=== PATIENT | female | born 1960 | race Two or more races ===

== ENCOUNTER → 2016-12-04 | Outpatient (CLI) | payer OTHER | END | disposition home or self-care (01) | LOC: LABWHC1 08:19 | PROVIDERS: ATTEND Psychiatry & Neurology Neurology | DX: G40.209 Localization-related (focal) (partial) symptomatic epilepsy and epileptic syndromes with complex partial seizures, not intractable, without status epilepticus (principal) | CPT/HCPCS: 36415; 80184; 80185; 84450; 84460 ==

== ENCOUNTER → 2017-08-31 | Outpatient (CLI) | payer OTHER ==
--- NOTE | 2017-09-03 08:40 | MM ---
Reason for exam: screening (asymptomatic). Last mammogram was performed 1 year and 3 months ago. History: Patient is postmenopausal. Family history of breast cancer in maternal grandmother. Physical Findings: A clinical breast exam by your physician is recommended on an annual basis and results should be correlated with mammographic findings. MG Screening Mammo w CAD Bilateral CC and MLO view(s) were taken. Prior study comparison: June 05, 2016, bilateral MG screening mammo w CAD. April 13, 2015, bilateral MG screening mammo w CAD. The breast tissue is almost entirely fat. Finding: There are typically benign grouped/clustered calcifications in the right breast. There is a chronic nodularity in the right breast. New finding since June 05, 2016 and April 13, 2015. ASSESSMENT: Probably benign, BI-RAD 3 RECOMMENDATION: Follow-up diagnostic mammogram of the right breast in 6 months.
== END | disposition home or self-care (01) ==
LOC: RADMAMWWP 10:54
PROVIDERS: ATTEND Family Medicine
DX: Z12.31 Encounter for screening mammogram for malignant neoplasm of breast (principal)

== ENCOUNTER 2017-09-07 22:06 | Emergency (ER) | payer OTHER ==
[2017-09-07] MEDS ORDERED: SODIUM CHLORIDE 0.9% 1,000 ML IV STA (22:33)
--- NOTE | 2017-09-07 22:58 | ED ---
General Adult HPI - General Chief complaint: Seizure Stated complaint: Seizure Time Seen by Provider: 09/07/17 22:21 Source: patient, RN notes reviewed, old records reviewed Mode of arrival: wheelchair Limitations: no limitations - History of Present Illness Initial comments: Patient is a 57-year-old female chief complaint of seizure this morning. Patient has a known history of epilepsy. She has been taking her medicine as prescribed. Patient states that she has recently been diagnosed with bronchitis , and has had unexplained hives. She is follow-up with a stick inserter. She states that she heard neurologist is Dr. Johnson. She had an appointment with Dr. Malone to exudative her medication as directed. Patient reports that her seizure lasted approximately 4 or so minutes, and she did bite her tongue. No lacerations to the tongue noted. There is some bruising. Patient states that she also hit her head and feels a hematoma over the left scalp. Patient's concerned she has a concussion. She states that she has no neck pain. Also complains of diarrhea approximately one week ago. Patient denies any fever or chills. - Related Data Home Medications Medication Instructions Recorded Confirmed Famotidine [Pepcid] 40 mg PO DAILY 03/16/14 09/07/17 PHENobarbital [Luminal] 32.4 mg PO QAM 03/16/14 09/07/17 Phenytoin Sodium Extended 200 mg PO BID 03/16/14 09/07/17 [Dilantin] clonazePAM [KlonoPIN] 2 mg PO DAILY 03/16/14 09/07/17 Albuterol Inhaler [Ventolin Hfa 1 - 2 puff INHALATION RT-QID PRN 09/07/17 Inhaler] Albuterol Nebulized [Ventolin 2.5 mg INHALATION RT-QID PRN 09/07/17 09/07/17 Nebulized] Ergocalciferol (Vitamin D2) 50,000 unit PO TELLEZ 09/07/17 09/07/17 [Vitamin D2] Ibuprofen [Motrin] 600 mg PO Q6HR PRN 09/07/17 09/07/17 Loratadine [Claritin] 10 mg PO DAILY 09/07/17 09/07/17 PHENobarbital 64.8 mg PO HS 09/07/17 09/07/17 diphenhydrAMINE [Benadryl] 25 mg PO HS 09/07/17 09/07/17 Allergies Allergy/AdvReac Type Severity Reaction Status Date / Time Penicillins Allergy Rash/Hives Verified 09/07/17 22:55 ranitidine HCl [From Zantac] Allergy interacts Verified 09/07/17 22:55 with dilantin Review of Systems ROS Statement: Those systems with pertinent positive or pertinent negative responses have been documented in the HPI. ROS Other: All systems not noted in ROS Statement are negative. Past Medical History Past Medical History: Seizure Disorder Additional Past Medical History / Comment(s): H. pylori; UTI; Whipple's Disease History of Any Multi-Drug Resistant Organisms: None Reported Past Surgical History: Cholecystectomy Additional Past Surgical History / Comment(s): cataract, lymphnodectomy Past Psychological History: No Psychological Hx Reported Smoking Status: Current every day smoker Past Alcohol Use History: None Reported Past Drug Use History: None Reported - Past Family History Mother Family Medical History: Cancer, Coronary Artery Disease (CAD), Diabetes Mellitus General Exam - General Exam Comments Initial Comments: 57-year-old female. No acute distress. Limitations: no limitations General appearance: alert, in no apparent distress Head exam: Present: atraumatic, normocephalic, normal inspection Eye exam: Present: normal appearance, PERRL, EOMI. Absent: scleral icterus, conjunctival injection, periorbital swelling ENT exam: Present: normal exam, mucous membranes moist, other (ecchymosis on tongue. no tongue laceration. ) Neck exam: Present: normal inspection. Absent: tenderness, meningismus, lymphadenopathy Respiratory exam: Present: normal lung sounds bilaterally. Absent: respiratory distress, wheezes, rales, rhonchi, stridor Cardiovascular Exam: Present: regular rate GI/Abdominal exam: Present: soft Extremities exam: Present: normal inspection, full ROM, normal capillary refill. Absent: tenderness, pedal edema, joint swelling, calf tenderness Back exam: Present: normal inspection Neurological exam: Present: alert, oriented X3, CN II-XII intact Psychiatric exam: Present: normal affect, normal mood Skin exam: Present: warm, dry, intact, normal color. Absent: rash Course Vital Signs 09/07/17 09/07/17 09/08/17 22:12 23:26 00:31 Temperature 99.4 F 97.6 F Pulse Rate 82 77 71 Respiratory 20 18 18 Rate Blood Pressure 128/65 97/60 103/59 O2 Sat by Pulse 97 98 98 Oximetry 09/08/17 01:40 Temperature 98 F Pulse Rate 68 Respiratory 18 Rate Blood Pressure 96/66 O2 Sat by Pulse 99 Oximetry Medical Decision Making - Medical Decision Making 57 year old female with history of epilepsy presents to ED after a seizure, she lost bladder control at the time. Patient is on multple seizure mediaction. PAtient is on dilantin. Levels obtained, and patient is slightly subtherapeutic at 9.5. Patient given loading dose of dilantin. Discussed follow up [facility] neurologist about changing her dosages. CT brain is normal. Labs were reviewed and normal. CXR shows an abnormal right middle lung density that is new compared to CXR in 2015. Discussed that this could be the cause of her cough, not bronchitis, and patient needs to have prompt follow up with PCP for further testing. She complains of no chest pain or shortness of breath. Discussed strict return parameters. Patient agrees to treatment plan and will comply. - Lab Data Result diagrams: 09/07/17 23:00 09/07/17 23:00 Lab Results 09/07/17 09/07/17 09/07/17 Range/Units 23:00 23:00 23:00 WBC 9.4 (3.8-10.6) k/uL RBC 4.53 (3.80-5.40) m/uL Hgb 13.8 (11.4-16.0) gm/dL Hct 42.9 (34.0-46.0) % MCV 94.7 (80.0-100.0) fL MCH 30.5 (25.0-35.0) pg MCHC 32.2 (31.0-37.0) g/dL RDW 14.8 (11.5-15.5) % Plt Count 295 (150-450) k/uL Neutrophils % 61 % Lymphocytes % 29 % Monocytes % 6 % Eosinophils % 3 % Basophils % 1 % Neutrophils # 5.7 (1.3-7.7) k/uL Lymphocytes # 2.7 (1.0-4.8) k/uL Monocytes # 0.5 (0-1.0) k/uL Eosinophils # 0.2 (0-0.7) k/uL Basophils # 0.1 (0-0.2) k/uL Sodium 139 (137-145) mmol/L Potassium 4.1 (3.5-5.1) mmol/L Chloride 105 (98-107) mmol/L Carbon Dioxide 25 (22-30) mmol/L Anion Gap 9 mmol/L BUN 13 (7-17) mg/dL Creatinine 0.60 (0.52-1.04) mg/dL Est GFR (MDRD) Af Amer >60 (>60 ml/min/1.73 sqM) Est GFR (MDRD) Non-Af >60 (>60 ml/min/1.73 sqM) Glucose 98 (74-99) mg/dL Calcium 9.1 (8.4-10.2) mg/dL Total Bilirubin 0.3 (0.2-1.3) mg/dL AST 25 (14-36) U/L ALT 25 (9-52) U/L Alkaline Phosphatase 135 H (38-126) U/L Troponin I <0.012 (0.000-0.034) ng/mL Total Protein 7.9 (6.3-8.2) g/dL Albumin 4.2 (3.5-5.0) g/dL Salicylates <1.0 mg/dL Urine Opiates Screen (NotDetected) Ur Oxycodone Screen (NotDetected) Urine Methadone Screen (NotDetected) Ur Propoxyphene Screen (NotDetected) Acetaminophen <10.0 ug/mL Ur Barbiturates Screen (NotDetected) Phenytoin 9.5 ug/mL U Tricyclic Antidepress (NotDetected) Ur Phencyclidine Scrn (NotDetected) Ur Amphetamines Screen (NotDetected) U Methamphetamines Scrn (NotDetected) U Benzodiazepines Scrn (NotDetected) [place] <0.2 mmol/L Urine Cocaine Screen (NotDetected) U Marijuana (THC) Screen (NotDetected) 09/08/17 Range/Units 00:25 WBC (3.8-10.6) k/uL RBC (3.80-5.40) m/uL Hgb (11.4-16.0) gm/dL Hct (34.0-46.0) % MCV (80.0-100.0) fL MCH (25.0-35.0) pg MCHC (31.0-37.0) g/dL RDW (11.5-15.5) % Plt Count (150-450) k/uL Neutrophils % % Lymphocytes % % Monocytes % % Eosinophils % % Basophils % % Neutrophils # (1.3-7.7) k/uL Lymphocytes # (1.0-4.8) k/uL Monocytes # (0-1.0) k/uL Eosinophils # (0-0.7) k/uL Basophils # (0-0.2) k/uL Sodium (137-145) mmol/L Potassium (3.5-5.1) mmol/L Chloride (98-107) mmol/L Carbon Dioxide (22-30) mmol/L Anion Gap mmol/L BUN (7-17) mg/dL Creatinine (0.52-1.04) mg/dL Est GFR (MDRD) Af Amer (>60 ml/min/1.73 sqM) Est GFR (MDRD) Non-Af (>60 ml/min/1.73 sqM) Glucose (74-99) mg/dL Calcium (8.4-10.2) mg/dL Total Bilirubin (0.2-1.3) mg/dL AST (14-36) U/L ALT (9-52) U/L Alkaline Phosphatase (38-126) U/L Troponin I (0.000-0.034) ng/mL Total Protein (6.3-8.2) g/dL Albumin (3.5-5.0) g/dL Salicylates mg/dL Urine Opiates Screen Not Detected (NotDetected) Ur Oxycodone Screen Not Detected (NotDetected) Urine Methadone Screen Not Detected (NotDetected) Ur Propoxyphene Screen Not Detected (NotDetected) Acetaminophen ug/mL Ur Barbiturates Screen Detected H (NotDetected) Phenytoin ug/mL U Tricyclic Antidepress Not Detected (NotDetected) Ur Phencyclidine Scrn Not Detected (NotDetected) Ur Amphetamines Screen Not Detected (NotDetected) U Methamphetamines Scrn Not Detected (NotDetected) U Benzodiazepines Scrn Not Detected (NotDetected) [place] mmol/L Urine Cocaine Screen Not Detected (NotDetected) U Marijuana (THC) Screen Detected H (NotDetected) - Radiology Data Radiology results: report reviewed EKG shows sinus rhythm. Nonspecific T-wave abnormality. Abnormal EKG noted. Ventricular rate of 70 bpm. CO interval 150 ms. QRS duration 80 ms. QT QTc is 3 days of 490 ms. No evidence of ST elevation. CT brain is negative for abnormalities. CXR shows area of density in right middle lobe, recommended close follow up . Disposition Clinical Impression: Seizure, Subtherapeutic phenytoin level, Mass of middle lobe of right lung Disposition: HOME SELF-CARE Condition: Good Instructions: Recurrent Seizures in Adults (ED) Additional Instructions: Patient is to call Dr. Johnson in regards to the phenytoin dosage. Discussed the ear level phenytoin is 9.5. You are given a loading dose in the emergency department. Patient also recommended to follow up with Dr. Hagen in regards to the chest x-ray finding with the right middle lung mass. Patient needs to follow-up promptly. Recommended returning to emergency department if any alarming signs or symptoms occur. Referrals: Abdirashid Hagen MD [Primary Care Provider] - 1-2 days Time of Disposition: 01:29
[2017-09-07 23:15] LABS: Basophils # (A) 0.1 k/uL (0-0.2); Basophils % (A) 1 %; CH 30.4; CHCM 32.3; Eosinophils # (A) 0.2 k/uL (0-0.7); Eosinophils % (A) 3 %; HCT 42.9 % (34.0-46.0); HDW 2.16; HGB 13.8 gm/dL (11.4-16.0); Luc # (Auto) 0.12; Luc % (Auto) 1; Lymphocytes # (A) 2.7 k/uL (1.0-4.8); Lymphocytes % (A) 29 %; MCH 30.5 pg (25.0-35.0); MCHC 32.2 g/dL (31.0-37.0); MCV 94.7 fL (80.0-100.0); Mean Platelet Volume 6.8; Monocytes # (A) 0.5 k/uL (0-1.0); Monocytes % (A) 6 %; Neutrophils # (A) 5.7 k/uL (1.3-7.7); Neutrophils % (A) 61 %; RBC 4.53 m/uL (3.80-5.40); RDW 14.8 % (11.5-15.5); WBC 9.4 k/uL (3.8-10.6); WBC (Perox) 9.77
--- NOTE | 2017-09-07 23:26 | CT ---
EXAMINATION TYPE: CT brain wo con DATE OF EXAM: 09/07/2017 COMPARISON: NONE HISTORY: Seizure CT DLP: mGycm Automated exposure control for dose reduction was used. FINDINGS: Ventricles and sulci are within normal limits. There is no mass effect nor midline shift. There is no sign of intracranial hemorrhage. The calvarium is intact. IMPRESSION: NEGATIVE CT SCAN OF THE BRAIN.
[2017-09-07 23:28] VITALS: RESP 18
[2017-09-07 23:29] LABS: ALT 25 U/L (9-52); AST 25 U/L (14-36); Acetaminophen <10.0 ug/mL; Alkaline Phosphatase 135 U/L (38-126); Anion Gap 9 mmol/L; Blood Urea Nitrogen 13 mg/dL (7-17); Calcium 9.1 mg/dL (8.4-10.2); Carbon Dioxide 25 mmol/L (22-30); Chloride 105 mmol/L (98-107); Glucose 98 mg/dL (74-99); Lithium <0.2 mmol/L; Non-African American GFR(MDRD) >60 (>60 ml/min/1.73 sqM); Potassium 4.1 mmol/L (3.5-5.1); Salicylate <1.0 mg/dL; Sodium 139 mmol/L (137-145); Total Bilirubin 0.3 mg/dL (0.2-1.3); Total Protein 7.9 g/dL (6.3-8.2)
--- NOTE | 2017-09-07 23:39 | XR ---
EXAMINATION TYPE: XR chest 2V DATE OF EXAM: 09/07/2017 COMPARISON: 05/26/2015 HISTORY: Seizure TECHNIQUE: Frontal and lateral views of the chest are obtained. FINDINGS: Heart is normal. Thoracic aorta is atheromatous. There is no heart failure. There is a 2 c m rounded masslike density in the right midlung. This is in the right middle lobe. There is no pleura l effusion. IMPRESSION: There is a new rounded masslike density in the right middle lobe compared to last exam. Follow-up is recommended.
[2017-09-08] MEDS ORDERED: PHENYTOIN SODIUM EXTENDED 100 MG CAP PO STA (01:17)
[2017-09-08] MEDS ORDERED: PHENYTOIN 50 MG CHEWABLE PO STA (01:27)
[2017-09-08 01:41] VITALS: BP 96/66; PULSE 68; TEMP 98
== END 2017-09-08 01:51 | disposition home or self-care (01) ==
LOC: EC 22:06
DX: R56.9 Unspecified convulsions (principal); R91.8 Other nonspecific abnormal finding of lung field; R89.2 Abnormal level of other drugs, medicaments and biological substances in specimens from other organs, systems and tissues; S00.532A Contusion of oral cavity, initial encounter; F17.200 Nicotine dependence, unspecified, uncomplicated; Z79.899 Other long term (current) drug therapy; Z88.0 Allergy status to penicillin; Z88.8 Allergy status to other drugs, medicaments and biological substances; W22.8XXA Striking against or struck by other objects, initial encounter
CPT/HCPCS: 36415; 70450; 71020; 80053; 80178; 80185; 80306; 83520; 84484; 85025; 93005; 96360; 96361; 99285

== ENCOUNTER → 2017-10-16 | Outpatient (CLI) | payer OTHER | END | disposition home or self-care (01) | LOC: CPPFTMAIN 10:29 | PROVIDERS: ATTEND Thoracic Surgery (Cardiothoracic Vascular Surgery) | DX: Z01.818 Encounter for other preprocedural examination (principal); Z01.812 Encounter for preprocedural laboratory examination; R91.8 Other nonspecific abnormal finding of lung field | CPT/HCPCS: 94060; 94726; 94729 ==

== ENCOUNTER → 2017-10-16 | Outpatient (CLI) | payer OTHER ==
[2017-10-16 12:01] LABS: Basophils # (A) 0.1 k/uL (0-0.2); Basophils % (A) 0 %; Eosinophils # (A) 0.2 k/uL (0-0.7); Eosinophils % (A) 1 %; HCT 43.8 % (34.0-46.0); HGB 13.5 gm/dL (11.4-16.0); Lymphocytes # (A) 2.2 k/uL (1.0-4.8); Lymphocytes % (A) 15 %; MCH 30.1 pg (25.0-35.0); MCHC 30.8 g/dL (31.0-37.0); MCV 97.5 fL (80.0-100.0); Mean Platelet Volume 6.7; Monocytes # (A) 0.5 k/uL (0-1.0); Monocytes % (A) 3 %; Neutrophils # (A) 11.3 k/uL (1.3-7.7); Neutrophils % (A) 79 %; Platelet Count 272 k/uL (150-450); RBC 4.49 m/uL (3.80-5.40); RDW 15.4 % (11.5-15.5); WBC 14.4 k/uL (3.8-10.6)
[2017-10-16 12:10] LABS: Anion Gap 14 mmol/L; Blood Urea Nitrogen 11 mg/dL (7-17); Carbon Dioxide 24 mmol/L (22-30); Chloride 106 mmol/L (98-107); Potassium 4.5 mmol/L (3.5-5.1); Sodium 144 mmol/L (137-145)
[2017-10-16 12:12] LABS: Prothrombin Time 9.7 sec (9.0-12.0)
[2017-10-16 12:13] LABS: Partial Thromboplastin Time 23.2 sec (22.0-30.0)
== END | disposition home or self-care (01) ==
LOC: LABPAT 11:30
PROVIDERS: ATTEND Thoracic Surgery (Cardiothoracic Vascular Surgery)
DX: Z01.812 Encounter for preprocedural laboratory examination (principal); R91.8 Other nonspecific abnormal finding of lung field
CPT/HCPCS: 36415; 80051; 82565; 84520; 85025; 85610; 85730

== ENCOUNTER → 2017-10-23 | Outpatient (CLI) | payer OTHER ==
--- NOTE | 2017-10-23 12:50 | EST ---
EXERCISE STRESS AGE: 57 SEX: F HT: 4'11-10/16" WT: 232 PROTOCOL: Cardiolite Jarrett Stress Test STAGE: I DURATION OF EXERCISE: 4:10 HEART RATE REST: 84 BLOOD PRESSURE REST: 141/84 MAXIMUM HEART RATE ACHIEVED: 143 MAXIMUM BLOOD PRESSURE: 147/66 85% MPHR: 137 100% MPHR: 166 METS: 5.0 INDICATIONS: Preoperative cardiac evaluation. CLINICAL INFORMATION: Baseline EKG shows sinus rhythm, normal axis, normal intervals. Patient exercised on Jarrett protocol for a total of 4 minutes achieving 5 METS, 82% of predicted maximal heart rate without chest pain. The test was stopped secondary to shortness of breath. There was no significant ST-segment depression noted. CONCLUSION: 1. Poor exercise tolerance. 2. Inconclusive EKG part of the stress test due to inability to attain target heart rate. 3. Cardiolite portion of the stress test will be reported separately. MMODL / IJN: [id number] /
--- NOTE | 2017-10-23 13:33 | NM ---
EXAMINATION TYPE: NM stress cardiolite complete DATE OF EXAM: 10/23/2017 COMPARISON: NONE HISTORY: Chest pain TECHNIQUE: After the intravenous administration of 9.0 mCi Tc 99m Sestamibi - Rest images obtained 4 5 minutes post injection. The patient exercised using a PAULETTE protocol and 1 minute prior to peak e xercise was injected with 27.2 mCi Tc 99m Sestamibi - Stress images obtained 15 minutes post injectio n. FINDINGS: Targeted heart rate was achieved during performance of the study. Review of stress and rest SPECT francisca ges demonstrates area of stress-induced reversibility involving the anteroapical portion of the myoca rdium. Gated analysis shows normal wall motion with an estimated left ventricular ejection fraction of 65 %. IMPRESSION: Findings suggestive of a area of stress-induced reversible ischemia anteroapical myocardium. Report c alled to the physician's office and faxed over to the physician. Correlate clinically.
== END | disposition home or self-care (01) ==
LOC: RADNMMAIN 09:26
PROVIDERS: ATTEND Thoracic Surgery (Cardiothoracic Vascular Surgery)
DX: Z01.818 Encounter for other preprocedural examination (principal); C34.11 Malignant neoplasm of upper lobe, right bronchus or lung; Z88.0 Allergy status to penicillin; Z88.5 Allergy status to narcotic agent; Z95.1 Presence of aortocoronary bypass graft
CPT/HCPCS: 93017; 78452; A9500

== ENCOUNTER 2017-11-03 22:11 | Inpatient (IN) | payer OTHER ==
[2017-11-03] MEDS ORDERED: ACETAMINOPHEN TAB 500 MG TAB PO STA (22:28)
[2017-11-03] MEDS ORDERED: IBUPROFEN 600 MG TAB PO STA (22:28)
[2017-11-03] MEDS ORDERED: IPRATROPIUM-ALBUTEROL 3 ML NEB INHALATION STA (22:55)
[2017-11-03] MEDS ORDERED: methylPREDNISolone SOD SUCCI 125 MG/2 ML VIAL IV STA (22:56)
[2017-11-03] MEDS ORDERED: SODIUM CHLORIDE 0.9% 1,000 ML IV STA (22:56)
[2017-11-03] MEDS ORDERED: LEVOFLOXACIN 750MG-D5W PMX 750 MG in DEXTROSE/WATER 1 150ML.BAG IVPB STA (22:57)
[2017-11-03 23:33] LABS: Basophils # (A) 0.1 k/uL (0-0.2); Basophils % (A) 0 %; Eosinophils # (A) 0.1 k/uL (0-0.7); Eosinophils % (A) 0 %; HCT 41.8 % (34.0-46.0); HGB 13.7 gm/dL (11.4-16.0); Lymphocytes # (A) 1.5 k/uL (1.0-4.8); Lymphocytes % (A) 8 %; MCH 30.1 pg (25.0-35.0); MCHC 32.8 g/dL (31.0-37.0); Mean Platelet Volume 6.5; Monocytes # (A) 0.5 k/uL (0-1.0); Monocytes % (A) 3 %; Neutrophils # (A) 15.3 k/uL (1.3-7.7); Neutrophils % (A) 87 %; Platelet Count 232 k/uL (150-450); RBC 4.56 m/uL (3.80-5.40); RDW 14.1 % (11.5-15.5); WBC 17.6 k/uL (3.8-10.6)
[2017-11-03 23:39] LABS: MCV 91.6 fL (80.0-100.0)
[2017-11-03 23:43] LABS: INR 1.1 (<1.2); Partial Thromboplastin Time 24.6 sec (22.0-30.0); Prothrombin Time 10.9 sec (9.0-12.0)
[2017-11-03 23:47] LABS: Albumin 4.3 g/dL (3.5-5.0); Calcium 8.5 mg/dL (8.4-10.2); Magnesium 1.7 mg/dL (1.6-2.3); Potassium 3.4 mmol/L (3.5-5.1); Total Bilirubin 0.6 mg/dL (0.2-1.3); Total Protein 8.3 g/dL (6.3-8.2)
--- NOTE | 2017-11-03 23:54 | XR ---
EXAMINATION TYPE: XR chest 2V DATE OF EXAM: 11/03/2017 COMPARISON: 09/07/2017 HISTORY: Difficulty breathing TECHNIQUE: Frontal and lateral views of the chest are obtained. FINDINGS: There is a 5 cm area of patchy consolidation in the superior segment left lower lobe best seen on the lateral view. Heart size is normal. There is no heart failure. There also is an apparent 2 cm infiltrate in the right middle lobe. The bony thorax is intact. IMPRESSION: Compared to last exam there is new consolidation in the left paraspinal left lower lobe consistent with pneumonia. There is a stable 2 cm rounded infiltrate in the right middle lobe. Tumor cannot be excluded.
[2017-11-04 00:07] LABS: Troponin I <0.012 ng/mL (0.000-0.034)
--- NOTE | 2017-11-04 00:11 | ED ---
Fever HPI - General Chief Complaint: Fever Stated Complaint: Flu like symtoms Time Seen by Provider: 11/03/17 22:41 Source: patient, RN notes reviewed, old records reviewed Mode of arrival: ambulatory Limitations: no limitations - History of Present Illness Initial Comments: Patient is a 57-year-old female history of previous smoker presents emergency room today chief complaint of cough, fevers, chills for the past week. Patient has history of lung cancer. She reports she is post have a biopsy for that the nodule on her right middle lung. Patient states that this was pushed back, due to not being medically cleared. Patient states that over the past week she's had worsening cough and congestion. A productive sputum. She has arrived with fever 101. She does report she's having difficulty breathing easier breathing treatments regularly. - Related Data Home Medications Medication Instructions Recorded Confirmed Famotidine [Pepcid] 40 mg PO DAILY 03/16/14 11/04/17 PHENobarbital [Luminal] 32.4 mg PO QAM 03/16/14 11/04/17 Phenytoin Sodium Extended 200 mg PO BID 03/16/14 11/04/17 [Dilantin] clonazePAM [KlonoPIN] 2 mg PO DAILY 03/16/14 11/04/17 Albuterol Inhaler [Ventolin Hfa 1 - 2 puff INHALATION RT-QID PRN 09/07/17 Inhaler] Albuterol Nebulized [Ventolin 2.5 mg INHALATION RT-QID PRN 09/07/17 11/04/17 Nebulized] Ergocalciferol (Vitamin D2) 50,000 unit PO TELLEZ 09/07/17 11/04/17 [Vitamin D2] Loratadine [Claritin] 10 mg PO DAILY PRN 09/07/17 11/04/17 PHENobarbital 64.8 mg PO HS 09/07/17 11/04/17 diphenhydrAMINE [Benadryl] 25 - 50 mg PO HS PRN 09/07/17 11/04/17 Acetaminophen Tab [Tylenol Tab] 650 mg PO Q6H 10/16/17 11/04/17 Allergies Allergy/AdvReac Type Severity Reaction Status Date / Time Penicillins Allergy Rash/Hives Verified 11/03/17 22:21 ranitidine HCl [From Zantac] Allergy interacts Verified 11/03/17 22:21 with dilantin Review of Systems ROS Statement: Those systems with pertinent positive or pertinent negative responses have been documented in the HPI. ROS Other: All systems not noted in ROS Statement are negative. Past Medical History Past Medical History: Seizure Disorder Additional Past Medical History / Comment(s): H. pylori; UTI; Whipple's Disease History of Any Multi-Drug Resistant Organisms: None Reported Past Surgical History: Cholecystectomy Additional Past Surgical History / Comment(s): cataract, lymphnodectomy Past Psychological History: No Psychological Hx Reported Smoking Status: Current every day smoker Past Alcohol Use History: None Reported Past Drug Use History: None Reported - Past Family History Father Family Medical History: Cancer Mother Family Medical History: Cancer, Coronary Artery Disease (CAD), Diabetes Mellitus General Exam - General Exam Comments Initial Comments: 57-year-old female. Limitations: no limitations General appearance: alert, in no apparent distress Head exam: Present: atraumatic, normocephalic, normal inspection Eye exam: Present: normal appearance, PERRL, EOMI. Absent: scleral icterus, conjunctival injection, periorbital swelling ENT exam: Present: normal exam, mucous membranes moist Neck exam: Present: normal inspection. Absent: tenderness, meningismus, lymphadenopathy Respiratory exam: Present: wheezes (See nursing and wheezing noted), decreased breath sounds. Absent: normal lung sounds bilaterally, respiratory distress, rales, rhonchi, stridor Cardiovascular Exam: Present: regular rate, normal rhythm, normal heart sounds. Absent: systolic murmur, diastolic murmur, rubs, gallop, clicks GI/Abdominal exam: Present: soft, normal bowel sounds. Absent: distended, tenderness, guarding, rebound, rigid Extremities exam: Present: normal inspection, full ROM, normal capillary refill. Absent: tenderness, pedal edema, joint swelling, calf tenderness Back exam: Present: normal inspection Psychiatric exam: Present: normal affect, normal mood Skin exam: Present: warm, dry, intact, normal color. Absent: rash Course Vital Signs 11/03/17 11/03/17 11/03/17 22:20 23:05 23:19 Temperature 101.7 F H 102.2 F H Pulse Rate 111 H 100 84 Respiratory 26 H 20 Rate Blood Pressure 117/79 O2 Sat by Pulse 93 L 93 L Oximetry 11/03/17 11/04/17 23:22 00:37 Temperature 99.5 F Pulse Rate 104 H 92 Respiratory 18 Rate Blood Pressure 94/50 O2 Sat by Pulse 97 Oximetry Medical Decision Making - Medical Decision Making This 7-year-old female presents emergency room chief complaint of increased cough, shortness of breath, and Fevers for the past week. She has history of lung cancer. She is most have a biopsy done on November 15. Patient states that she's been progressively worse. She said he is breathing treatments at home. She arrives with significant wheezing and diminished lung sounds. Oxygen saturation was 87% on initial evaluation. Patient was placed on 3 L of O2. Patient's chest x-ray shows evidence of a left lower lobe pneumonia at the paraspinal area. She also has a right middle lung nodule is been stable compared to previous exams. Patient informed of these results. Her white blood cell count is elevated 17,000. I started the patient on Levaquin. She does meet sepsis criteria. Patient will be admitted at this time with IV antibiotics, breathing treatments and steroids. Similar EKG was performed and noted the patient did have prolonged QT. We discontinue Levaquin patient be started on Rocephin and azithromycin. QTc was 450/447 ms. - Lab Data Result diagrams: 11/03/17 23:05 11/03/17 23:05 Lab Results 11/03/17 11/03/17 11/03/17 Range/Units 22:22 23:05 23:05 WBC 17.6 H (3.8-10.6) k/uL RBC 4.56 (3.80-5.40) m/uL Hgb 13.7 (11.4-16.0) gm/dL Hct 41.8 (34.0-46.0) % MCV 91.6 D (80.0-100.0) fL MCH 30.1 (25.0-35.0) pg MCHC 32.8 (31.0-37.0) g/dL RDW 14.1 (11.5-15.5) % Plt Count 232 (150-450) k/uL Neutrophils % 87 % Lymphocytes % 8 % Monocytes % 3 % Eosinophils % 0 % Basophils % 0 % Neutrophils # 15.3 H (1.3-7.7) k/uL Lymphocytes # 1.5 (1.0-4.8) k/uL Monocytes # 0.5 (0-1.0) k/uL Eosinophils # 0.1 (0-0.7) k/uL Basophils # 0.1 (0-0.2) k/uL PT (9.0-12.0) sec INR (<1.2) APTT (22.0-30.0) sec Sodium (137-145) mmol/L Potassium (3.5-5.1) mmol/L Chloride (98-107) mmol/L Carbon Dioxide (22-30) mmol/L Anion Gap mmol/L BUN (7-17) mg/dL Creatinine (0.52-1.04) mg/dL Est GFR (MDRD) Af Amer (>60 ml/min/1.73 sqM) Est GFR (MDRD) Non-Af (>60 ml/min/1.73 sqM) Glucose (74-99) mg/dL Plasma Lactic Acid Valer[place] (0.7-2.0) mmol/L Calcium (8.4-10.2) mg/dL Magnesium (1.6-2.3) mg/dL Total Bilirubin (0.2-1.3) mg/dL AST (14-36) U/L ALT (9-52) U/L Alkaline Phosphatase (38-126) U/L Total Creatine Kinase 2705 H (30-135) U/L CK-MB (CK-2) 6.2 H* (0.0-2.4) ng/mL CK-MB (CK-2) Rel Index Troponin I <0.012 (0.000-0.034) ng/mL Total Protein (6.3-8.2) g/dL Albumin (3.5-5.0) g/dL Influenza Type A RNA Not Detected (Not Detectd) Influenza Type B (PCR) Not Detected (Not Detectd) 11/03/17 11/03/17 11/03/17 Range/Units 23:05 23:05 23:05 WBC (3.8-10.6) k/uL RBC (3.80-5.40) m/uL Hgb (11.4-16.0) gm/dL Hct (34.0-46.0) % MCV (80.0-100.0) fL MCH (25.0-35.0) pg MCHC (31.0-37.0) g/dL RDW (11.5-15.5) % Plt Count (150-450) k/uL Neutrophils % % Lymphocytes % % Monocytes % % Eosinophils % % Basophils % % Neutrophils # (1.3-7.7) k/uL Lymphocytes # (1.0-4.8) k/uL Monocytes # (0-1.0) k/uL Eosinophils # (0-0.7) k/uL Basophils # (0-0.2) k/uL PT 10.9 (9.0-12.0) sec INR 1.1 (<1.2) APTT 24.6 (22.0-30.0) sec Sodium 141 (137-145) mmol/L Potassium 3.4 L (3.5-5.1) mmol/L Chloride 102 (98-107) mmol/L Carbon Dioxide 23 (22-30) mmol/L Anion Gap 16 mmol/L BUN 21 H (7-17) mg/dL Creatinine 1.20 H (0.52-1.04) mg/dL Est GFR (MDRD) Af Amer 56 (>60 ml/min/1.73 sqM) Est GFR (MDRD) Non-Af 46 (>60 ml/min/1.73 sqM) Glucose 142 H (74-99) mg/dL Plasma Lactic Acid [place] 1.5 (0.7-2.0) mmol/L Calcium 8.5 (8.4-10.2) mg/dL Magnesium 1.7 (1.6-2.3) mg/dL Total Bilirubin 0.6 (0.2-1.3) mg/dL AST 75 H (14-36) U/L ALT 41 (9-52) U/L Alkaline Phosphatase 117 (38-126) U/L Total Creatine Kinase (30-135) U/L CK-MB (CK-2) (0.0-2.4) ng/mL CK-MB (CK-2) Rel Index Troponin I (0.000-0.034) ng/mL Total Protein 8.3 H (6.3-8.2) g/dL Albumin 4.3 (3.5-5.0) g/dL Influenza Type A RNA (Not Detectd) Influenza Type B (PCR) (Not Detectd) 11/04/17 00:49 EKG shows normal sinus rhythm. Nonspecific T-wave abnormality. Prolonged QT. Abnormal EKG noted. Patient's ventricular rate is 89 bpm. KS interval 136 most seconds. QRS duration 70 ms. QT QTc is 450/01/17/1947 milliseconds. - Radiology Data Radiology results: report reviewed Chest x-ray shows no counts station and left paraspinal left lower lobe consistent with pneumonia. There is stable 2 cm round infiltrate within the right middle lobe. Tumor cannot be excluded. Disposition Clinical Impression: Sepsis, Pneumonia, Lung cancer Disposition: ADMITTED IP TO THIS HOSP Condition: Stable Time of Disposition: 00:25
[2017-11-04 00:20] LABS: Creatine Kinase 2705 U/L (30-135); Creatine Kinase MB 6.2 ng/mL (0.0-2.4)
[2017-11-04] MEDS ORDERED: IPRATROPIUM-ALBUTEROL 3 ML NEB INHALATION PRN (00:25)
[2017-11-04] MEDS ORDERED: PNEUMONIA PROTOCOL UTILIZED 1 EACH MISC PO PRN (00:25)
[2017-11-04] MEDS ORDERED: PROMETHAZ-COD 6.25-10 MG/5 ML 5 ML CUP PO PRN (00:27)
[2017-11-04] MEDS ORDERED: SODIUM CHLORIDE 0.9% 1,000 ML IV ONE (00:49)
[2017-11-04] MEDS ORDERED: AZITHROMYCIN 500 MG TAB PO STA (00:55)
[2017-11-04] MEDS ORDERED: cefTRIAXone IN SWFI 1,000 MG/10 ML SYRINGE IVP STA (00:55)
[2017-11-04] MEDS: SODIUM CHLORIDE 0.9% 1,000 ML IV SCH ×3 (00:55→16:34)
[2017-11-04] MEDS: ALBUTEROL NEBULIZED 2.5 MG/3 ML INHALATION SCH ×4 (07:15→20:36)
[2017-11-04] MEDS ORDERED: LORATADINE 10 MG TAB PO PRN (08:23)
[2017-11-04] MEDS ORDERED: ALBUTEROL INHALER 60 PUFF/8 GM INHALER INHALATION PRN (08:23)
[2017-11-04] MEDS ORDERED: ALBUTEROL NEBULIZED 2.5 MG/3 ML INHALATION PRN (08:23)
[2017-11-04] MEDS ORDERED: ERGOCALCIFEROL 50,000 UNIT CAP PO SCH (09:00)
[2017-11-04] MEDS ORDERED: PHENobarbital 32.4 MG TAB PO SCH ×2 (09:00→21:00)
[2017-11-04] MEDS: PHENYTOIN SODIUM EXTENDED 100 MG CAP PO SCH ×2 (09:46→17:20)
[2017-11-04] MEDS: FAMOTIDINE 20 MG TAB PO SCH (09:46)
[2017-11-04] MEDS: POTASSIUM CHLORIDE ER 20 MEQ TAB.ER PO SCH ×3 (09:46→21:46)
[2017-11-04] MEDS: clonazePAM 1 MG TAB PO SCH (09:53)
[2017-11-04] MEDS ORDERED: PHENobarbital 32.4 MG TAB PO ONE (17:45)
[2017-11-04] MEDS: ACETAMINOPHEN TAB 325 MG TAB PO PRN (20:11)
[2017-11-04] MEDS ORDERED: diphenhydrAMINE 25 MG CAP PO PRN (21:00)
[2017-11-05] MEDS: PHENYTOIN SODIUM EXTENDED 100 MG CAP PO SCH ×3 (05:25→17:07)
[2017-11-05] MEDS: PHENobarbital 32.4 MG TAB PO SCH ×2 (05:26→17:06)
[2017-11-05] MEDS: SODIUM CHLORIDE 0.9% 1,000 ML IV SCH ×3 (05:26→16:11)
[2017-11-05] MEDS: ACETAMINOPHEN TAB 325 MG TAB PO PRN ×3 (05:32→23:26)
[2017-11-05] MEDS: clonazePAM 1 MG TAB PO SCH (05:32)
[2017-11-05] MEDS ORDERED: ONDANSETRON 4 MG/2 ML VIAL IVP PRN (07:09)
[2017-11-05] MEDS: FAMOTIDINE 20 MG TAB PO SCH (07:41)
[2017-11-05] MEDS: POTASSIUM CHLORIDE ER 20 MEQ TAB.ER PO SCH ×3 (07:41→23:27)
--- NOTE | 2017-11-05 07:55 | XR ---
EXAMINATION TYPE: XR chest 2V DATE OF EXAM: 11/05/2017 COMPARISON: 11/03/2017 HISTORY: Shortness of breath TECHNIQUE: Frontal and lateral views of the chest are obtained. FINDINGS: Scattered senescent parenchymal changes noted. Hyperinflation compatible with COPD. Right lower lobe nodule with the patchy density. Overall no significant interval change. Follow-up un til resolution recommended. Heart size is stable. Mediastinal structures are stable and grossly unremarkable. No evidence for hilar prominence. Degenerative changes dorsal spine. IMPRESSION: 1. Right lower lobe nodule with the patchy density. Overall no significant interval change. Follow-up until resolution recommended.
[2017-11-05] MEDS: ALBUTEROL NEBULIZED 2.5 MG/3 ML INHALATION SCH ×4 (08:27→21:02)
[2017-11-05] MEDS ORDERED: PHENYTOIN SODIUM EXTENDED 100 MG CAP PO SCH (11:12)
--- NOTE | 2017-11-05 14:48 | HP ---
HISTORY AND PHYSICAL CHIEF COMPLAINT: Fever and chills, chest pain, shortness of breath. HISTORY OF PRESENT ILLNESS: This is another admission for this 57-year-old, white female, who recently was diagnosed with carcinoma of the lung. She has been a long-time smoker. She also has seizure disorder. She started to develop lung congestion, shortness of breath and chest discomfort with fever and came to the emergency room where she was diagnosed as having pneumonitis. She is a current smoker. She has had no hemoptysis. REVIEW OF SYSTEMS: She has had no other signs or symptoms. Patient has had no vomiting, diarrhea, urinary complaints, etc. She has had no seizures. She has had no hemoptysis. She has had some bilateral chest pain. Past medical history, family history, personal and social history demonstrates that she is ALLERGIC TO PENICILLIN AND CODEINE. MEDICATIONS: She is on vitamin D, updrafts with albuterol, Pepcid 40 mg once a day, phenobarbital 32.4 mg t.i.d., Klonopin 2 mg once a day p.r.n., Dilantin 100 mg 2 twice a day. Past medical history, family history, personal and social history otherwise unremarkable. 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 PHYSICAL EXAMINATION: Blood pressure is 102/64 with a pulse of 84, respirations of 35 and temperature of 100. In general, she appeared to be overweight and slightly short of breath. Skin was dry and lymph nodes are not enlarged. Head, ears, eyes, nose, mouth, and throat were normal. Neck veins not distended. Thyroid not enlarged. Chest demonstrates poor breath sounds throughout with occasional rales at the bases. She had a rattly cough and occasional rhonchi. Cardiac exam is normal. The abdomen is soft and protuberant. EXTREMITIES: Normal. Neurological she is intact. She is admitted to the hospital with a diagnosis of: IMPRESSION: 1. Bronchial pneumonia. 2. Right lung mass. 3. Chronic obstructive pulmonary disease. 4. Seizure disorder. PLAN: 1. Bed rest. 2. IV fluids. 3. IV antibiotics. 4. Updrafts. MMODL / IJN: [id number] /
--- NOTE | 2017-11-05 15:48 | PN ---
PROGRESS NOTE DATE OF SERVICE: 11/05/2017. CHIEF COMPLAINT: 1. Pneumonitis. 2. Nausea and vomiting. 3. Carcinoma of the lung. HISTORY OF PRESENT ILLNESS: This lady's breathing is improved slightly, but she is having some nausea and she has vomited twice. She has had no abdominal pain, hematemesis, melena, hematochezia. PHYSICAL EXAM: Breath sounds are diminished at the left base. There are rales and rhonchi scattered throughout. Cardiac exam is normal. The abdomen is soft, nontender. IMPRESSION: 1. Left lower lobe pneumonitis. 2. Nausea vomiting, etiology unknown. 3. Carcinoma of the lung. 4. Seizure disorder. PLAN: Antiemetics and continue treatment of her pneumonia. MMODL / IJN: [id number] /
[2017-11-06] MEDS: PHENYTOIN SODIUM EXTENDED 100 MG CAP PO SCH ×2 (04:12→17:01)
[2017-11-06] MEDS: PHENobarbital 32.4 MG TAB PO SCH ×2 (04:13→17:12)
[2017-11-06] MEDS: clonazePAM 1 MG TAB PO SCH (04:14)
[2017-11-06] MEDS: SODIUM CHLORIDE 0.9% 1,000 ML IV SCH (05:07)
[2017-11-06] MEDS: ALBUTEROL NEBULIZED 2.5 MG/3 ML INHALATION SCH ×4 (08:06→21:04)
[2017-11-06] MEDS: ACETAMINOPHEN TAB 325 MG TAB PO PRN ×2 (08:38→14:43)
[2017-11-06] MEDS: POTASSIUM CHLORIDE ER 20 MEQ TAB.ER PO SCH ×3 (08:41→21:06)
[2017-11-06] MEDS: FAMOTIDINE 20 MG TAB PO SCH (08:41)
[2017-11-06] MEDS ORDERED: guaiFENesin SYRUP 100MG/5ML 200 MG/10 ML CUP PO PRN (08:45)
[2017-11-06] MEDS: LORATADINE 10 MG TAB PO SCH (09:40)
--- NOTE | 2017-11-06 10:41 | CDI ---
Last Revision, September 2017 Documentation Clarification Form Date: 11/06/2017 9:59:00 AM From: Rae Uribe RN, CCDS Admit Date: 11/04/2017 12:51:00 AM Patient Name: Terra Soliman Visit Number: [id number] Discharge Date: ATTENTION: The Clinical Documentation Specialists (CDI) and [facility] Coding Staff appreciate your assistance in clarifying documentation. Please respond to the clarification below the line at the bottom and electronically sign. The CDI & [facility] Coding staff will review the response and follow-up if needed. Please note: Queries are made part of the Legal Health Record. If you have any questions, please contact the author of this message via ITS. Dr. Abdirashid Hagen Emergency department evaluation has documentation of patient with fever, evidence of left lower lobe pneumonia, Her WBC is elevated 17,000, and notes she meet sepsis criteria. History/Risk Factors: Lung cancer nodule right middle lung. Clinical Indicators: Present with complaints of cough, congestion, productive sputum. fevers, chills. She reports difficulty breathing. Respiratory exam: Breath sounds are diminished at the left base. There are rales and rhonchi. WBC/Left Shift : 17,000 Lactic acid: 1.20 Blood cultures: Pending Vitals signs on admission: 117/79 111 26 101.7 93 % RA Chest x-ray: new consolidation in the left paraspinal left lower lobe consistent with pneumonia. Treatment: Ventolin Nebulized Zithromax PO (DC) Rocephin IVP (DC) 11/05/17 Continue pneumonia treatment In your professional opinion, please clarify if these findings signify one of the following conditions, whether the condition is POA, and cause, if known: Condition Sepsis ruled out SIRS, without underlying infectious process Sepsis Severe Sepsis Septic Shock Other, please specify Unable to determine Present on Admission: Yes No Identify the (suspected) organism Link or clarify if there is associated (due to/with): Organ failure Shock SIRS Criteria..2 or more of the following may indicate SIRS: Temperature < 96.8F (36C) or > 101.0F (38.3C) Heart Rate > 90 bpm Respiratory Rate > 20 breaths/min or PaCO2 < 32 mmHg White Blood Cell Count > 12,000 or < 4,000 cells/mm3 or > 10% bands Lactate >2.0 mmol/L (>4.0 is equivalent to septic shock) Please continue to document in your progress notes and discharge summary in order to capture severity of illness and risk of mortality. Include clinical findings that support your diagnosis. MTDD
[2017-11-06] MEDS: cefTRIAXone IN SWFI 2,000 MG/20 ML SYRINGE IVP SCH (12:47)
[2017-11-06] MEDS: AZITHROMYCIN 500 MG in SODIUM CHLORIDE 0.9% 250 ML IVPB SCH (12:57)
--- NOTE | 2017-11-06 22:25 | PN ---
PROGRESS NOTE CHIEF COMPLAINT: Pneumonitis and CA of the lung. HISTORY OF PRESENT ILLNESS: This lady is doing well. She is steadily feeling better each day. PHYSICAL EXAM: Chest is more clear. There are fewer rhonchi. There are scattered rales. Cardiac exam is normal. The abdomen is soft, nontender. IMPRESSION: 1. Bronchial pneumonia. 2. Carcinoma of the lung. 3. Chronic obstructive pulmonary disease. 4. Seizure disorder. PLAN: Continue on current treatment. MMODL / IJN: [id number] /
[2017-11-07] MEDS ORDERED: IPRATROPIUM-ALBUTEROL 3 ML NEB ONE (01:41)
[2017-11-07] MEDS: clonazePAM 1 MG TAB PO SCH (05:23)
[2017-11-07] MEDS: PHENYTOIN SODIUM EXTENDED 100 MG CAP PO SCH (05:23)
[2017-11-07] MEDS: PHENobarbital 32.4 MG TAB PO SCH (05:23)
[2017-11-07] MEDS: ACETAMINOPHEN TAB 325 MG TAB PO PRN (05:29)
[2017-11-07] MEDS: ALBUTEROL NEBULIZED 2.5 MG/3 ML INHALATION SCH ×2 (07:27→11:33)
[2017-11-07 07:52] VITALS: BP 106/74; RESP 18; TEMP 99.9
[2017-11-07] MEDS: POTASSIUM CHLORIDE ER 20 MEQ TAB.ER PO SCH (07:52)
[2017-11-07] MEDS: FAMOTIDINE 20 MG TAB PO SCH (07:52)
[2017-11-07] MEDS: cefTRIAXone IN SWFI 2,000 MG/20 ML SYRINGE IVP SCH (07:52)
[2017-11-07] MEDS: AZITHROMYCIN 500 MG in SODIUM CHLORIDE 0.9% 250 ML IVPB SCH (07:52)
--- NOTE | 2017-11-07 09:20 | MISC ---
MISCELLANOUS REPORT Condition is sepsis. Present on admission: Yes. Identify the organism: Unknown. MMODL / IJN: [id number] /
[2017-11-07 11:35] VITALS: PULSE 88
[2017-11-07] MEDS ORDERED: AZITHROMYCIN 1,200 MG/30 ML BOTTLE PO STA (11:58)
[2017-11-07] MEDS: LORATADINE 10 MG TAB PO SCH (12:05)
[2017-11-07] MEDS ORDERED: CEPHALEXIN 500 MG CAP PO SCH (13:00)
--- NOTE | 2017-11-08 08:03 | DS ---
DISCHARGE SUMMARY CHIEF COMPLAINT: Bronchial pneumonia. HISTORY OF PRESENT ILLNESS AND PHYSICAL EXAM: Details of this lady's history and physical can be found in the initial workup. LABORATORY STUDIES: While she was in a hospital she had laboratory studies, details which can be found in the laboratory section of her chart. COURSE IN HOSPITAL: After admission, she was placed on bedrest and started on intravenous fluids and IV antibiotics with updrafts. She improved slowly and was able to be discharged on the . She will be seen in the office in several days. FINAL DIAGNOSES: 1. Bronchial pneumonia. 2. Chronic obstructive pulmonary disease. 3. Seizure disorder. 4. Cancer of the lung. OPERATIONS: None. CONSULTATIONS: None. She is improved. MMODL / IJN: [id number] /
[2017-11-08] MEDS ORDERED: AZITHROMYCIN 500 MG TAB PO SCH (09:00)
== END 2017-11-07 13:55 | disposition home or self-care (01) | DRG 871 ==
LOC: EC 22:11 → 4MS4W 11-04 00:51
PROVIDERS: ADMIT Family Medicine; ATTEND Family Medicine
DX: A41.9 Sepsis, unspecified organism (principal); J18.0 Bronchopneumonia, unspecified organism; C34.90 Malignant neoplasm of unspecified part of unspecified bronchus or lung; J44.0 Chronic obstructive pulmonary disease with (acute) lower respiratory infection; F17.200 Nicotine dependence, unspecified, uncomplicated; G40.909 Epilepsy, unspecified, not intractable, without status epilepticus; Z82.49 Family history of ischemic heart disease and other diseases of the circulatory system; Z83.3 Family history of diabetes mellitus; Z88.0 Allergy status to penicillin; Z79.899 Other long term (current) drug therapy
CPT/HCPCS: 36415; 71046; 80053; 82550; 82553; 83605; 83735; 84484; 85025; 85610; 85730; 87040; 87070; 87205; 87502; 93005; 94640; 96365; 96375; 99285

== ENCOUNTER → 2017-11-13 | Outpatient (CLI) | payer OTHER ==
[2017-11-13 10:54] LABS: Basophils # (A) 0.1 k/uL (0-0.2); Basophils % (A) 1 %; Eosinophils # (A) 0.3 k/uL (0-0.7); Eosinophils % (A) 4 %; HCT 41.6 % (34.0-46.0); HGB 13.4 gm/dL (11.4-16.0); Lymphocytes # (A) 2.7 k/uL (1.0-4.8); Lymphocytes % (A) 30 %; MCHC 32.3 g/dL (31.0-37.0); Mean Platelet Volume 6.6; Monocytes # (A) 0.5 k/uL (0-1.0); Monocytes % (A) 6 %; Neutrophils % (A) 56 %; Platelet Count 411 k/uL (150-450); RBC 4.47 m/uL (3.80-5.40); RDW 14.5 % (11.5-15.5); WBC 8.9 k/uL (3.8-10.6)
== END | disposition home or self-care (01) ==
LOC: LABPAT 10:25
PROVIDERS: ATTEND Thoracic Surgery (Cardiothoracic Vascular Surgery)
DX: Z01.812 Encounter for preprocedural laboratory examination (principal)
CPT/HCPCS: 36415; 85025

== ENCOUNTER 2017-11-15 05:55 | Inpatient (IN) | payer OTHER ==
[2017-11-12 15:01] VITALS: BMI 46.3
[~2017-11-15 05:55] MED LIST: DEXAMETHASONE SOD PHOSPHATE 10 MG/ML 1 ML VIAL IV ONE; LACTATED RINGERS 1,000 ML IV SCH; LIDOCAINE 1% 20 ML VIAL (10MG/ML) FOR IV START INTRADERMA PRN; MIDAZOLAM 2 MG/2 ML VIAL IV PRN; ONDANSETRON 4 MG/2 ML VIAL IVP ONE; SCOPOLAMINE 1.5MG/72HR PATCH TRANSDERM ONE; ceFAZolin IN SWFI 2 GM/20 ML SYRINGE IVP ONE
[2017-11-15] MEDS ORDERED: LIDOCAINE 1% INJ 10MG/ML (20 ML MDV) ONE (07:55)
[2017-11-15] MEDS ORDERED: ePHEDrine SULFATE/0.9% NACL/PF 50 MG/5 ML SYRINGE IV ONE (07:55)
[2017-11-15] MEDS ORDERED: fentaNYL (PF) 50 MCG/ML 2 ML AMP ONE (07:55)
[2017-11-15] MEDS ORDERED: PHENYLEPHRINE-0.9% NACL SYG 1 MG/10 ML SYRINGE ONE (07:55)
[2017-11-15] MEDS ORDERED: ROCURONIUM BROMIDE 10 MG/ML 10 ML VIAL IV ONE (07:55)
[2017-11-15] MEDS ORDERED: SUCCINYLCHOLINE CHLORIDE 100 MG/5 ML SYR IV ONE (07:55)
[2017-11-15] MEDS ORDERED: PROPOFOL 10 MG/ML 20 ML VIAL IV ONE (07:55)
[2017-11-15] MEDS ORDERED: MIDAZOLAM 2 MG/2 ML VIAL ONE (07:55)
[2017-11-15] MEDS ORDERED: HYDROmorphone (PF) 1 MG/ML ONE (07:55)
[2017-11-15] MEDS ORDERED: LACTATED RINGERS 1,000 ML IV ONE ×3 (08:40→10:47)
[2017-11-15] MEDS ORDERED: ONDANSETRON 4 MG/2 ML VIAL IVP PRN (10:50)
[2017-11-15] MEDS ORDERED: IPRATROPIUM-ALBUTEROL 3 ML NEB IH PRN (10:50)
[2017-11-15] MEDS ORDERED: BISACODYL 10 MG SUPP RECTAL PRN (10:50)
[2017-11-15] MEDS ORDERED: BUPIVACAINE (PF) 0.25% 30 ML VIAL SQ ONE (11:00)
--- NOTE | 2017-11-15 11:19 | P.OP ---
Date of Procedure: 11/15/17 Preoperative Diagnosis: Lung CA Postoperative Diagnosis: Same Procedure(s) Performed: Right middle lobectomy performed via robotic-assisted thoracoscopic approach Anesthesia: CASANDRAA Surgeon: Jemal John Director Of Institutional Research #1: Jose Hooker Estimated Blood Loss (ml): 100 IV fluids (ml): 1,500 Urine output (ml): 500 Pathology: other (Right middle lobe for permanent section. Bronchial margin was negative by frozen section.) Disposition: PACU Indications for Procedure: 57-year-old female with enlarging mass in right middle lobe Operative Findings: 2 cm peripheral mass in the right middle lobe with overlying pleural puckering consistent with lung carcinoma. Near complete greater fissure incomplete lesser fissure. Anthracotic hilar adenopathy. No significant mediastinal adenopathy noted. Description of Procedure: Patient was brought to the operating room placed supine on the operating table. Gen. anesthesia was induced. Patient was intubated with a double-lumen endotracheal tube. This was a difficult intubation. The tube was positioned with fiberoptic bronchoscopy and secured. The patient was turned in the left lateral decubitus position and appropriately positioned for robotic lobectomy. The right chest was sterilely prepped and draped. Initial incision was made in the midaxillary line over the ninth interspace. Single lung ventilation was initiated. A port was placed through this incision but we could not be sure we were in the pleural space. Was decided to widen the port and placed the port under direct vision. The main problem related to 2 difficulty being sure we were in the pleural space in the face of a morbidly obese patient. Incision was enlarged to about 2 inches and carried down through skin and subcutaneous tissue muscle to the intercostal space. Intercostal space was incised and the port was placed into the pleural space. Once we were certain we were in the pleural space CO2 insufflation was begun. Over the next half hour the patient did not tolerate single lung ventilation very well. We had to adjust the ventilatory settings and used to lung ventilation several times. Eventually the patient stabilized. In the interim we placed the remainder of the ports. The initial port was a 8 mm port. Anterior and posterior to this about 10 cm distances were placed 212 mm ports. 15 mm working port was placed between the most anterior and the initial camera port. This was placed more inferiorly right above the diaphragmatic insertion. All these ports were placed using thoracoscopic guidance. A final 8 mm port was placed at the level of the fissure in about the sixth interspace posteriorly. The ports in place and properly positioned, the robot was docked. The camera was placed through the midaxillary line port. Bipolar dissector was placed in the most anterior port. A 12 mm posterior port had a cadiere grasper placed in it and the most posterior port had a thoracic grasper. We began the dissection in the hilum of the middle lobe. We opened the pleura at the base of the greater fissure and identified the pulmonary artery as well as bronchus. There was a large anthracotic lymph node overlying this area and this was mobilized and ultimately resected en bloc with the specimen. We dissected around the middle lobe vein that drained into the superior pulmonary vein and ligated and divided this with a robotic vascular stapler. We then were able to encircle the middle lobe bronchus and ligated and divided with a robotic thick stapler. We now could still demonstrate a large branch of the pulmonary artery leading to the middle lobe. This was encircled and ligated and divided with a robotic vascular stapler. There was a smaller branch just superior to this which was also encircled, ligated and divided with a vascular stapler. We then completed the greater fissure with a single firing of a 45 mm robotic medium stapler and then continued this staple line across the lesser fissure and completed the lobectomy. Multiple firings of medium Endo DAKSHA were required for the lesser fissure. Once the lobectomy specimen was free, it was placed in a large Endo Catch bag. Was retracted inferiorly and dissection was begun on the mediastinal nodes. There was no significant adenopathy noted in the anterior mediastinum. The paratracheal lead region was explored. There was no significant adenopathy noted here either. Was decided to complete the operation. The lobectomy specimen was brought out onto the field. The robot was undocked. Thoracoscopically we placed a 28-Greek chest tube through the most anterior incision and positioned posterior apically and secured it. The lung was inflated under direct vision under water and no air leaks were noted. The water was suctioned free and the ports were closed with layers of Vicryl suture. Dry sterile dressings were applied. Patient was transferred to recovery in stable condition.
--- NOTE | 2017-11-15 11:43 | XR ---
EXAMINATION TYPE: XR chest 1V DATE OF EXAM: 11/15/2017 COMPARISON: 11/15/2017 HISTORY: Right middle lobectomy TECHNIQUE: Single frontal view of the chest is obtained. FINDINGS: There are low lung volumes accentuating the pulmonary vasculature. Obscuration of the left costophrenic angle is thought to be related to copious overlying soft tissues. Low lungs volumes als o accentuate the mediastinal size. Cardiac silhouette is mildly enlarged. New right thoracostomy tube has its distal tip at the medial lung apex. Fenestrated portion is intra thoracic. There is volume loss and a wedge-shaped opacity in the region of the prior right-sided pulm onary nodule from right middle lobectomy, likely related to atelectasis and postbiopsy hemorrhage/hem atoma. No residual pneumothorax is seen. IMPRESSION: Postbiopsy change from a right middle lobectomy with right apical thoracostomy tube and no residual pneumothorax visualized.
[2017-11-15 11:52] LABS: Basophils % (A) 0 %; Eosinophils % (A) 0 %; HCT 36.9 % (34.0-46.0); HGB 11.9 gm/dL (11.4-16.0); Lymphocytes % (A) 9 %; MCH 30.3 pg (25.0-35.0); MCHC 32.2 g/dL (31.0-37.0); MCV 94.2 fL (80.0-100.0); Mean Platelet Volume 6.5; Monocytes # (A) 0.2 k/uL (0-1.0); Monocytes % (A) 2 %; Neutrophils # (A) 9.1 k/uL (1.3-7.7); Neutrophils % (A) 88 %; Platelet Count 336 k/uL (150-450); RBC 3.92 m/uL (3.80-5.40); RDW 15.5 % (11.5-15.5); WBC 10.4 k/uL (3.8-10.6)
[2017-11-15 12:02] LABS: ALT 57 U/L (9-52); AST 65 U/L (14-36); Albumin 3.6 g/dL (3.5-5.0); Alkaline Phosphatase 92 U/L (38-126); Anion Gap 10 mmol/L; Blood Urea Nitrogen 13 mg/dL (7-17); Calcium 8.6 mg/dL (8.4-10.2); Carbon Dioxide 25 mmol/L (22-30); Chloride 106 mmol/L (98-107); Glucose 173 mg/dL (74-99); Potassium 4.4 mmol/L (3.5-5.1); Sodium 141 mmol/L (137-145); Total Bilirubin 0.2 mg/dL (0.2-1.3); Total Protein 7.2 g/dL (6.3-8.2)
[2017-11-15] MEDS: HYDROmorphone 0.5 MG/0.5 ML SYRINGE IVP PRN ×6 (12:07→14:30)
[2017-11-15] MEDS: traMADol 50 MG TAB PO SCH ×3 (15:11→22:42)
[2017-11-15] MEDS: DEXTROSE 5%-0.45% NACL 1,000 ML IV SCH (15:12)
[2017-11-15] MEDS: ACETAMINOPHEN IV (For NPO) 1,000 MG in EMPTY BAG 1 BAG IVPB SCH ×2 (16:01→22:12)
[2017-11-15] MEDS: ceFAZolin IN SWFI 2 GM/20 ML SYRINGE IVP SCH (16:01)
[2017-11-15] MEDS: KETOROLAC 30 MG/ML 1 ML VIAL IVP SCH (16:11)
[2017-11-15] MEDS: HEPARIN SODIUM,PORCINE 5,000 UNIT/ML 1 ML VIAL SQ SCH (16:12)
[2017-11-15] MEDS: MORPHINE SULFATE 2 MG/ML SYRINGE IVP PRN ×2 (16:32→20:35)
[2017-11-15] MEDS: IPRATROPIUM-ALBUTEROL 3 ML NEB IH SCH ×3 (16:34→20:08)
--- NOTE | 2017-11-15 16:46 | P.CNPUL ---
History of Present Illness Consult date: 11/15/17 Requesting physician: Jemal John Chief complaint: Status post right middle lobectomy History of present illness: This is a 57-year-old female, smoker, patient was recently evaluated by Dr. Aden for a peripheral right mid lung mass, measuring about 2.5 x 3 cm. She was also noted to have abnormal PET scan, no other areas of metabolic uptake was noted on the PET scan. Hence the index of suspicion for bronchogenic carcinoma/adenocarcinoma was very high. Patient was advised to undergo right middle lobectomy. This was done today by Dr. John, and this was done via robotic-assisted thoracoscopic approach. Postoperatively, patient was admitted to a monitor bed on selective, and I was asked to see her on consultation. The patient just came out of surgery, she is a bit sedated and confused, but in no form of respiratory distress. PFT prior to surgery was relatively normal. Patient is known to have history of seizure disorder, glaucoma, and GERD. At present the patient is not a great historian. Review of Systems Review of systems cannot be obtained, patient seems to be lethargic and confused. No family members at bedside. ROS unobtainable: due to mental status Past Medical History Past Medical History: Seizure Disorder Additional Past Medical History / Comment(s): H. pylori; UTI; Whipple's Disease History of Any Multi-Drug Resistant Organisms: None Reported Past Surgical History: Cholecystectomy Additional Past Surgical History / Comment(s): cataract, lymphnodectomy Past Psychological History: No Psychological Hx Reported Smoking Status: Current every day smoker Past Alcohol Use History: None Reported Additional Past Alcohol Use History / Comment(s): QUIT SMOKING 10/03/17, SMOKED 1 AND 1/2 PPD FROM AGE 10 Past Drug Use History: None Reported - Past Family History Father Family Medical History: Cancer Additional Family Medical History / Comment(s): LUNG Mother Family Medical History: Cancer, Coronary Artery Disease (CAD), Diabetes Mellitus Additional Family Medical History / Comment(s): LUNG CA Medications and Allergies Home Medications Medication Instructions Recorded Confirmed Type Famotidine [Pepcid] 40 mg PO DAILY PRN 03/16/14 11/15/17 History PHENobarbital [Luminal] 32.4 mg PO QAM 03/16/14 11/15/17 History Phenytoin Sodium Extended 200 mg PO BID 03/16/14 11/15/17 History [Dilantin] clonazePAM [KlonoPIN] 2 mg PO QAM 03/16/14 11/15/17 History Albuterol Inhaler [Ventolin Hfa 1 - 2 puff INHALATION RT-QID PRN 09/07/17 History Inhaler] Loratadine [Claritin] 10 mg PO DAILY PRN 09/07/17 11/15/17 History PHENobarbital 64.8 mg PO HS 09/07/17 11/15/17 History diphenhydrAMINE [Benadryl] 25 - 50 mg PO HS PRN 09/07/17 11/15/17 History Acetaminophen Tab [Tylenol] 650 mg PO Q6H 10/16/17 11/15/17 History Cholecalciferol [Vitamin D3] 2,000 unit PO DAILY 11/04/17 11/15/17 History Albuterol Nebulized [Ventolin 2.5 mg INHALATION RT-QID nebu 11/07/17 11/15/17 Rx Nebulized] Cephalexin [Keflex] 500 mg PO QID #30 cap 11/07/17 11/15/17 Rx Ipratropium-Albuterol Nebulize 3 ml INHALATION RT-Q4H PRN 11/07/17 11/15/17 Rx [Duoneb 0.5 mg-3 mg/3 ml Soln] ampul.neb Metoprolol Tartrate [Metoprolol 12.5 mg PO BID 11/15/17 11/15/17 History Tartrate] Allergies Allergy/AdvReac Type Severity Reaction Status Date / Time Penicillins Allergy Rash/Hives Verified 11/15/17 12:41 ranitidine HCl [From Zantac] Allergy interacts Verified 11/15/17 12:41 with dilantin codeine AdvReac Abdominal Verified 11/15/17 12:41 Pain Physical Exam Vitals: Vital Signs Temp Pulse Resp BP Pulse Ox 11/15/17 15:39 97.6 F 84 20 108/67 92 L 11/15/17 14:22 85 16 109/74 100 11/15/17 13:42 88 20 124/57 100 11/15/17 13:29 86 16 101/66 100 11/15/17 13:10 88 16 107/73 91 L 11/15/17 12:55 89 16 110/65 93 L 11/15/17 12:40 87 16 107/63 93 L 11/15/17 12:25 89 16 110/67 92 L 11/15/17 11:54 93 18 117/55 97 11/15/17 11:39 90 24 113/73 94 L 11/15/17 11:24 97.0 F L 100 16 116/59 90 L 11/15/17 07:12 98 F 96 18 115/75 96 Intake and Output 11/15/17 11/15/17 11/15/17 06:59 14:59 22:59 Intake Total 2950 Output Total 444 Balance 2506 Intake: IV 2950 Output: Urine 300 Estimated Blood Loss 144 Physical examination revealed a 57-year-old female in no form of respiratory distress. HEENT: Neck is supple, no neck masses, no thyromegaly, dry mucous membranes noted. Patient is on nasal cannula. Chest: Minimal crackles at the bases, no rhonchi, no wheezes. Right-sided chest tube was noted. Cardiac: Normal S1 and S2, no gallops. Abdomen: Soft nontender no megaly no rebound no guarding. Extremities: No clubbing edema or cyanosis. Lymphatics: No lymphadenopathy Psychiatric: Slightly confused, blunted affect, Neurologic: Oriented to place, person, and not time. Results - Laboratory Findings CBC and BMP: 11/15/17 11:35 11/15/17 11:35 Abnormal lab findings: Abnormal Labs 11/15/17 11/15/17 11/15/17 06:40 11:35 11:35 Neutrophils # 9.1 H Potassium 5.2 H Glucose 173 H AST 65 H ALT 57 H - Diagnostic Findings Chest x-ray: image reviewed (Postoperative changes noted with a right-sided assess tube in place, atelectasis in the right midlung area and atelectasis in the left base noted.) Assessment and Plan Assessment: Impression: 1 status post right middle lobectomy performed via robotic-assisted thoracoscopic approach. Postoperative day #0. 2 history of seizure disorder 3 history of mild COPD 4 history of hypertension 5 history of GERD Recommendation: I fully agree with the present treatment plan including antibiotics, bronchodilators, incentive spirometry, await final pathology report on her right lung mass, highly suspicious for bronchogenic carcinoma/ adenocarcinoma. We'll continue to follow. Time with Patient: Greater than 30
[2017-11-15] MEDS: PHENYTOIN SODIUM 100 MG PO SCH (20:30)
[2017-11-15] MEDS: PHENobarbital 64.8 MG TAB PO SCH (20:58)
[2017-11-15] MEDS ORDERED: METOPROLOL TARTRATE 12.5 MG TAB PO SCH (21:00)
[2017-11-15] MEDS ORDERED: PHENYTOIN SODIUM EXTENDED 100 MG CAP PO SCH (21:00)
[2017-11-16] MEDS: ceFAZolin IN SWFI 2 GM/20 ML SYRINGE IVP SCH (02:37)
[2017-11-16] MEDS: KETOROLAC 30 MG/ML 1 ML VIAL IVP SCH ×4 (02:37→23:00)
[2017-11-16] MEDS: MORPHINE SULFATE 2 MG/ML SYRINGE IVP PRN ×5 (02:59→23:00)
[2017-11-16] MEDS: HEPARIN SODIUM,PORCINE 5,000 UNIT/ML 1 ML VIAL SQ SCH ×4 (03:06→22:59)
[2017-11-16] MEDS: ACETAMINOPHEN IV (For NPO) 1,000 MG in EMPTY BAG 1 BAG IVPB SCH ×2 (03:11→10:45)
[2017-11-16] MEDS: IPRATROPIUM-ALBUTEROL 3 ML NEB IH SCH ×4 (08:09→20:55)
--- NOTE | 2017-11-16 08:13 | XR ---
EXAMINATION TYPE: XR chest 1V DATE OF EXAM: 11/16/2017 COMPARISON: 11/15/2017 HISTORY: Chest tube placement, surveillance, postoperative foraminal lobectomy. TECHNIQUE: Single frontal view of the chest is obtained. FINDINGS: Similar appearing wedge-shaped opacity within the right middle lung from volume loss and p ostoperative change of the right middle lobectomy are seen. There is slight retraction of the right-s ided thoracostomy tube with its distal tip remaining in the medial right lung apex. Moderate degree o f subcutaneous emphysema seen along the right lateral chest wall. No residual pneumothorax. Cardiac silhouette is enlarged. There is a probable trace left pleural effusion. No pulmonary vascula r congestion. Eventration is noted of the right hemidiaphragm. IMPRESSION: Similar appearing postoperative changes of the right hemithorax and probable trace left pleural effusion.
--- NOTE | 2017-11-16 08:51 | P.PN ---
Subjective Progress Note Date: 11/16/17 Principal diagnosis: Lung cancer. History of seizure disorder, COPD, hypertension, GERD. Tobacco dependence. POD #1 right middle lobectomy performed via robotic-assisted thoracoscopic approach. Patient's currently sitting up in bed in no acute distress. States her pain is controlled. No new complaints or concerns at this time. Objective - Vital Signs Vital signs: Vital Signs Temp 98.2 F 11/16/17 08:00 Pulse 80 11/16/17 08:23 Resp 18 11/16/17 08:00 BP 114/59 11/16/17 08:00 Pulse Ox 97 11/16/17 08:00 Intake & Output 11/15/17 11/16/17 11/16/17 18:59 06:59 18:59 Intake Total 2950 Output Total 444 1171 Balance 2506 -1171 Weight 110 kg Intake: IV 2950 Output: Drainage 171 Right Chest 171 Urine 300 1000 Estimated Blood Loss 144 Other: Voiding Method Indwelling Catheter Indwelling Catheter - Constitutional General appearance: Present: cooperative, no acute distress, obese - Respiratory Details: Lungs sounds diminished bilaterally. Respirations even, nonlabored. Currently on 2 L nasal cannula with oxygen saturation 98%. Able to achieve 1500 mL on her incentive spirometer. Right pleural chest tube in place to -20 cm wall suction, 155 mL thin serous drainage overnight, 300 mL since surgery, positive intermittent air leak with coughing. - Cardiovascular Details: S1, S2 present. No murmur present. Regular rate and rhythm, sinus rhythm on telemetry. Palpable peripheral pulses bilaterally. No edema present. No calf pain or tenderness noted. SCDs present. - Gastrointestinal Gastrointestinal Comment(s): Abdomen soft, nontender, nondistended. Active bowel sounds 4 quadrants. Tolerating diet. - Genitourinary Genitourinary Comment(s): Greco present draining clear, yellow urine. - Integumentary Integumentary Comment(s): Skin warm, dry, with evidence of good perfusion. Right pleural chest tube site covered with dry intact dressing. - Neurologic Neurologic: Present: CNII-XII intact - Musculoskeletal Musculoskeletal: Present: gait normal, strength equal bilaterally - Psychiatric Psychiatric: Present: A&O x's 3, appropriate affect, intact judgment & insight - Allied health notes Allied health notes reviewed: nursing - Labs CBC & Chem 7: 11/15/17 11:35 11/15/17 11:35 Labs: Abnormal Lab Results - Last 24 Hours (Table) 11/15/17 11/15/17 Range/Units 11:35 11:35 Neutrophils # 9.1 H (1.3-7.7) k/uL Glucose 173 H (74-99) mg/dL AST 65 H (14-36) U/L ALT 57 H (9-52) U/L - Imaging and Cardiology Chest x-ray: report reviewed, image reviewed Assessment and Plan (1) History of seizure Current Visit: No Status: Chronic Code(s): Z87.898 - PERSONAL HISTORY OF OTHER SPECIFIED CONDITIONS SNOMED Code(s): 594067436 (2) COPD (chronic obstructive pulmonary disease) Current Visit: Yes Status: Chronic Code(s): J44.9 - CHRONIC OBSTRUCTIVE PULMONARY DISEASE, UNSPECIFIED SNOMED Code(s): 12760127 (3) Tobacco dependence Current Visit: Yes Status: Chronic Code(s): F17.200 - NICOTINE DEPENDENCE, UNSPECIFIED, UNCOMPLICATED SNOMED Code(s): 23430326 (4) GERD (gastroesophageal reflux disease) Current Visit: Yes Status: Chronic Code(s): K21.9 - GASTRO-ESOPHAGEAL REFLUX DISEASE WITHOUT ESOPHAGITIS SNOMED Code(s): 277963145 (5) Lung cancer Current Visit: Yes Status: Chronic Code(s): C34.90 - MALIGNANT NEOPLASM OF UNSP PART OF UNSP BRONCHUS OR LUNG SNOMED Code(s): 178317221 Plan: 1. Will keep right pleural chest tube to suction another 24 hours and monitor for air leak. 2. Wean O2 as tolerated. 3. Encourage incentive spirometry use 10 times every hour. 4. Encourage smoking cessation. 5. Pain control with current regimen. 6. Increase activity ambulate in room. 7. GI/DVT prophylaxis. 8. Will monitor daily chest x-rays. 9. More recommendations to follow. Time with Patient: Greater than 30
[2017-11-16] MEDS: FAMOTIDINE 20 MG TAB PO SCH (10:19)
[2017-11-16] MEDS: clonazePAM 1 MG TAB PO SCH (10:19)
[2017-11-16] MEDS: PHENYTOIN SODIUM 100 MG PO SCH ×2 (10:22→20:14)
[2017-11-16] MEDS: PHENobarbital 32.4 MG TAB PO SCH (10:27)
[2017-11-16] MEDS: traMADol 50 MG TAB PO SCH ×4 (10:28→20:53)
--- NOTE | 2017-11-16 10:34 | P.PN ---
Subjective Progress Note Date: 11/16/17 Principal diagnosis: Right-sided midlung area mass, status post robotic-assisted thoracoscopic right middle lobectomy, postop day 1 This is a 57-year-old female, smoker, patient was recently evaluated by Dr. Aden for a peripheral right mid lung mass, measuring about 2.5 x 3 cm. She was also noted to have abnormal PET scan, no other areas of metabolic uptake was noted on the PET scan. Hence the index of suspicion for bronchogenic carcinoma/adenocarcinoma was very high. Patient was advised to undergo right middle lobectomy. This was done today by Dr. John, and this was done via robotic-assisted thoracoscopic approach. Postoperatively, patient was admitted to a monitor bed on selective, and I was asked to see her on consultation. The patient just came out of surgery, she is a bit sedated and confused, but in no form of respiratory distress. PFT prior to surgery was relatively normal. Patient is known to have history of seizure disorder, glaucoma, and GERD. At present the patient is not a great historian. On 12/01/2017 patient is seen in follow-up. She is having significant incisional pain from the right midlung thoracotomy and lobectomy. The chest tube is in place, and draining serosanguineous drainage. Has been 171 mL of serosanguineous output in the atrium from the right chest tube over the last 24 hours. Lung sounds show good air entry bilaterally, with a few scattered rales over right lower lobe. She is compliant with her incentive spirometer, she is able to achieve 2000 on the today. No fevers, no chills the night, no acute events. Afebrile, currently on room air with pulse ox of 97%. Her chest tube was placed to waterseal. Chest x-ray from this morning shows postop changes of the right hemothorax and probable trace left pleural effusion. Objective - Vital Signs Vital signs: Vital Signs Temp 98.2 F 11/16/17 08:00 Pulse 80 11/16/17 08:23 Resp 18 11/16/17 08:00 BP 114/59 11/16/17 08:00 Pulse Ox 97 11/16/17 08:00 Intake & Output 11/15/17 11/16/17 11/16/17 18:59 06:59 18:59 Intake Total 2950 10 Output Total 444 1171 Balance 2506 -1171 10 Weight 110 kg Intake: IV 2950 10 Invasive Line 4 10 Output: Drainage 171 Right Chest 171 Urine 300 1000 Estimated Blood Loss 144 Other: Voiding Method Indwelling Catheter Indwelling Catheter Indwelling Catheter - Exam Physical examination revealed a 57-year-old female in no form of respiratory distress. HEENT: Neck is supple, no neck masses, no thyromegaly, dry mucous membranes noted. Patient is on nasal cannula. Chest: Minimal crackles at the bases, no rhonchi, no wheezes. Right-sided chest tube was noted. Cardiac: Normal S1 and S2, no gallops. Abdomen: Soft nontender no megaly no rebound no guarding. Extremities: No clubbing edema or cyanosis. Lymphatics: No lymphadenopathy Psychiatric: Slightly confused, blunted affect, Neurologic: Oriented to place, person, and not time. - Labs CBC & Chem 7: 11/15/17 11:35 11/15/17 11:35 Labs: Abnormal Lab Results - Last 24 Hours (Table) 11/15/17 11/15/17 Range/Units 11:35 11:35 Neutrophils # 9.1 H (1.3-7.7) k/uL Glucose 173 H (74-99) mg/dL AST 65 H (14-36) U/L ALT 57 H (9-52) U/L Assessment and Plan Plan: Assessment: 1 status post right middle lobectomy performed via robotic-assisted thoracoscopic approach. Postoperative day #1. 2 history of seizure disorder 3 history of mild COPD 4 history of hypertension 5 history of GERD Recommendation: We'll continue current plan of treatment, continue bronchodilators, increase ambulation, incentive spirometry, pain control. I performed a history & physical examination of the patient and discussed their management with my nurse practitioner, Emily Barone. I reviewed the nurse practitioner's note and agree with the documented findings and plan of care. Lung sounds are positive right lower lobe crackles. The findings and the impression was discussed with the patient. I attest to the documentation by the nurse practitioner.
[2017-11-16] MEDS: DEXTROSE 5%-0.45% NACL 1,000 ML IV SCH (12:15)
[2017-11-16 12:34] LABS: ALT 60 U/L (9-52); AST 78 U/L (14-36); Albumin 3.7 g/dL (3.5-5.0); Alkaline Phosphatase 97 U/L (38-126); Anion Gap 9 mmol/L; Blood Urea Nitrogen 9 mg/dL (7-17); Calcium 8.7 mg/dL (8.4-10.2); Carbon Dioxide 26 mmol/L (22-30); Chloride 103 mmol/L (98-107); Glucose 104 mg/dL (74-99); Sodium 138 mmol/L (137-145); Total Bilirubin 0.4 mg/dL (0.2-1.3); Total Protein 7.1 g/dL (6.3-8.2)
[2017-11-16] MEDS: PHENobarbital 64.8 MG TAB PO SCH (20:53)
--- NOTE | 2017-11-17 07:09 | XR ---
EXAMINATION TYPE: XR chest 1V DATE OF EXAM: 11/17/2017 HISTORY: Postoperative right middle lobectomy. REFERENCE: Previous study dated 11/16/2017. FINDINGS: The right pleural drain remains in place, unchanged in appearance. The heart is enlarged. T here is atelectasis in the right midlung. Lungs otherwise clear. There is blunting of both CP angles. I could not exclude small effusions. IMPRESSION: 1. POSTOPERATIVE CHANGE. 2. CARDIAC ENLARGEMENT. 3. I CANNOT EXCLUDE SMALL, BILATERAL EFFUSIONS.
[2017-11-17] MEDS: MORPHINE SULFATE 2 MG/ML SYRINGE IVP PRN ×4 (07:27→22:11)
[2017-11-17] MEDS: IPRATROPIUM-ALBUTEROL 3 ML NEB IH SCH ×4 (07:34→19:22)
[2017-11-17] MEDS: clonazePAM 1 MG TAB PO SCH (08:01)
[2017-11-17] MEDS: traMADol 50 MG TAB PO SCH ×4 (08:01→20:00)
[2017-11-17] MEDS: KETOROLAC 30 MG/ML 1 ML VIAL IVP SCH ×3 (08:02→20:00)
[2017-11-17] MEDS: PHENobarbital 32.4 MG TAB PO SCH (08:02)
[2017-11-17] MEDS: HEPARIN SODIUM,PORCINE 5,000 UNIT/ML 1 ML VIAL SQ SCH ×2 (08:04→14:34)
[2017-11-17] MEDS: PHENYTOIN SODIUM 100 MG PO SCH ×2 (08:04→19:57)
[2017-11-17] MEDS: FAMOTIDINE 20 MG TAB PO SCH (08:04)
--- NOTE | 2017-11-17 11:02 | P.PN ---
Subjective Progress Note Date: 11/17/17 Principal diagnosis: Status post right middle lobectomy This is a 57-year-old female, smoker, patient was recently evaluated by Dr. Aden for a peripheral right mid lung mass, measuring about 2.5 x 3 cm. She was also noted to have abnormal PET scan, no other areas of metabolic uptake was noted on the PET scan. Hence the index of suspicion for bronchogenic carcinoma/adenocarcinoma was very high. Patient was advised to undergo right middle lobectomy. This was done today by Dr. John, and this was done via robotic-assisted thoracoscopic approach. Postoperatively, patient was admitted to a monitor bed on selective, and I was asked to see her on consultation. The patient just came out of surgery, she is a bit sedated and confused, but in no form of respiratory distress. PFT prior to surgery was relatively normal. Patient is known to have history of seizure disorder, glaucoma, and GERD. At present the patient is not a great historian. On 11/16/2017 patient is seen in follow-up. She is having significant incisional pain from the right midlung thoracotomy and lobectomy. The chest tube is in place, and draining serosanguineous drainage. Has been 171 mL of serosanguineous output in the atrium from the right chest tube over the last 24 hours. Lung sounds show good air entry bilaterally, with a few scattered rales over right lower lobe. She is compliant with her incentive spirometer, she is able to achieve 2000 on the today. No fevers, no chills the night, no acute events. Afebrile, currently on room air with pulse ox of 97%. Her chest tube was placed to waterseal. Chest x-ray from this morning shows postop changes of the right hemothorax and probable trace left pleural effusion. Patient was reevaluated today on , doing relatively well, excellent with incentive spirometry, chest x-ray is showing mostly atelectasis which is expected postoperatively. However the patient is compliant with her incentive spirometer. Labs were reviewed, patient has some pain but denies any shortness of breath. Pathology from her lobectomy is pending. Objective - Vital Signs Vital signs: Vital Signs Temp 98.7 F 11/17/17 08:00 Pulse 95 11/17/17 08:00 Resp 17 11/17/17 08:00 BP 133/70 11/17/17 08:00 Pulse Ox 93 L 11/17/17 08:00 Intake & Output 11/16/17 11/17/17 11/17/17 18:59 06:59 18:59 Intake Total 1100 Output Total 1700 500 Balance -600 -500 Weight 101 kg Intake: IV 20 Invasive Line 4 20 Oral 1080 Output: Chest Tube Drainage 40 Chest Tube 40 Urine 1660 500 Other: Voiding Method Toilet Toilet # Voids 2 - Exam - Exam Physical examination revealed a 57-year-old female in no form of respiratory distress. HEENT: Neck is supple, no neck masses, no thyromegaly, dry mucous membranes noted. Patient is on nasal cannula. Chest: Minimal crackles at the bases, no rhonchi, no wheezes. Right-sided chest tube was noted. Cardiac: Normal S1 and S2, no gallops. Abdomen: Soft nontender no megaly no rebound no guarding. Extremities: No clubbing edema or cyanosis. Lymphatics: No lymphadenopathy Psychiatric: Slightly confused, blunted affect, Neurologic: Oriented to place, person, and time - Labs CBC & Chem 7: 11/15/17 11:35 11/16/17 12:08 Labs: Abnormal Lab Results - Last 24 Hours (Table) 11/16/17 Range/Units 12:08 Glucose 104 H (74-99) mg/dL AST 78 H (14-36) U/L ALT 60 H (9-52) U/L Assessment and Plan Assessment: Impression: 1 status post right middle lobectomy performed via robotic-assisted thoracoscopic approach. Postoperative day #2 2 history of seizure disorder 3 history of mild COPD 4 history of hypertension 5 history of GERD Recommendation: Continue present incentive spirometry, bronchodilators, ambulation, await pathology report, will follow. Time with Patient: Less than 30
--- NOTE | 2017-11-17 11:45 | P.PN ---
Subjective Progress Note Date: 11/17/17 Principal diagnosis: Lung cancer. History of seizure disorder, COPD, hypertension, GERD. Tobacco dependence. POD #2 right middle lobectomy performed via robotic-assisted thoracoscopic approach. Patient's currently sitting up in bed in no acute distress. States her pain is controlled. No new complaints or concerns at this time. Has been ambulating in the hallway. Chest tube was placed to waterseal yesterday. Objective - Vital Signs Vital signs: Vital Signs Temp 99.1 F 11/17/17 11:33 Pulse 92 11/17/17 11:33 Resp 17 11/17/17 11:33 BP 90/55 11/17/17 11:33 Pulse Ox 99 11/17/17 11:33 Intake & Output 11/16/17 11/17/17 11/17/17 18:59 06:59 18:59 Intake Total 1100 Output Total 1700 500 Balance -600 -500 Weight 101 kg Intake: IV 20 Invasive Line 4 20 Oral 1080 Output: Chest Tube Drainage 40 Chest Tube 40 Urine 1660 500 Other: Voiding Method Toilet Toilet # Voids 2 - Constitutional General appearance: Present: cooperative, no acute distress, obese - Respiratory Details: Lungs sounds diminished bilaterally. Respirations even, nonlabored. Currently on room air with oxygen saturation 94%. Able to achieve 1750 mL on her incentive spirometry. Right pleural chest tube to waterseal, 60 mL thin serous drainage in the last 24 hours, intermittent air leak present. - Cardiovascular Details: S1, S2 present. Regular rate and rhythm, sinus rhythm on telemetry. Palpable peripheral pulses bilaterally. No edema present. No calf pain or tenderness noted. SCDs present. - Gastrointestinal Gastrointestinal Comment(s): Abdomen soft, nontender, nondistended. Active bowel sounds 4 quadrants. Tolerating diet. - Genitourinary Genitourinary Comment(s): Continue to void clear, yellow urine. - Integumentary Integumentary Comment(s): Skin warm, dry with evidence of good perfusion. Right pleural chest tube site covered with dry intact dressing. - Neurologic Neurologic: Present: CNII-XII intact - Musculoskeletal Musculoskeletal: Present: gait normal, strength equal bilaterally - Psychiatric Psychiatric: Present: A&O x's 3, appropriate affect, intact judgment & insight - Allied health notes Allied health notes reviewed: nursing - Labs CBC & Chem 7: 11/15/17 11:35 11/16/17 12:08 Labs: Abnormal Lab Results - Last 24 Hours (Table) 11/16/17 Range/Units 12:08 Glucose 104 H (74-99) mg/dL AST 78 H (14-36) U/L ALT 60 H (9-52) U/L - Imaging and Cardiology Chest x-ray: report reviewed, image reviewed Assessment and Plan (1) History of seizure Current Visit: No Status: Chronic Code(s): Z87.898 - PERSONAL HISTORY OF OTHER SPECIFIED CONDITIONS SNOMED Code(s): 887052336 (2) COPD (chronic obstructive pulmonary disease) Current Visit: Yes Status: Chronic Code(s): J44.9 - CHRONIC OBSTRUCTIVE PULMONARY DISEASE, UNSPECIFIED SNOMED Code(s): 54408979 (3) Tobacco dependence Current Visit: Yes Status: Chronic Code(s): F17.200 - NICOTINE DEPENDENCE, UNSPECIFIED, UNCOMPLICATED SNOMED Code(s): 66639178 (4) GERD (gastroesophageal reflux disease) Current Visit: Yes Status: Chronic Code(s): K21.9 - GASTRO-ESOPHAGEAL REFLUX DISEASE WITHOUT ESOPHAGITIS SNOMED Code(s): 085915557 (5) Lung cancer Current Visit: Yes Status: Chronic Code(s): C34.90 - MALIGNANT NEOPLASM OF UNSP PART OF UNSP BRONCHUS OR LUNG SNOMED Code(s): 630721626 Plan: 1. Will keep right pleural chest tube to waterseal another 24 hours and monitor for air leak. 2. Wean O2 as tolerated. 3. Encourage incentive spirometry use 10 times every hour. 4. Encourage smoking cessation. 5. Pain control with current regimen. 6. Increase activity ambulate in room. 7. GI/DVT prophylaxis. 8. Will monitor daily chest x-rays. 9. More recommendations to follow. Time with Patient: Greater than 30
--- NOTE | 2017-11-17 17:14 | PN ---
PROGRESS NOTE She was seen on 11/17/2017. She continues to have a right-sided chest tube. On physical examination, respiratory rate is 17, pulse rate 96, temperature 99.1, blood pressure 160/64, O2 saturation on room air 93%. HEENT is unremarkable. With decreased breath sounds on the right side. Cardiovascular system reveals an S1, S2. Abdomen is soft. There is no edema. IMPRESSION AT THIS TIME: Status post right middle lobectomy for lung cancer. Continue chest tube on the right. Incentive spirometry. Increase her activity level. Continue treatment for gastroesophageal reflux disease, hypertension, and her seizure disorder. Her prognosis is fair. MMODL / IJN: [id number] /
[2017-11-17] MEDS: PHENobarbital 64.8 MG TAB PO SCH (20:00)
[2017-11-18] MEDS: HEPARIN SODIUM,PORCINE 5,000 UNIT/ML 1 ML VIAL SQ SCH ×4 (00:17→22:49)
[2017-11-18] MEDS: MORPHINE SULFATE 2 MG/ML SYRINGE IVP PRN ×2 (02:35→06:30)
--- NOTE | 2017-11-18 03:27 | XR ---
EXAM: XR Chest, 1 View CLINICAL HISTORY: Reason: chest tube placement TECHNIQUE: Frontal view of the chest. COMPARISON: Chest x-ray dated 11/17/2016. FINDINGS: Lungs: Unchanged mild patchy opacity in the right midlung. Pleural space: Unremarkable. No pneumothorax. Heart: Reidentified mild cardiomegaly. Mediastinum: Unremarkable. Bones/joints: Unremarkable. Soft tissues: A chest tube is reidentified projecting over the right chest wall. There appears to be increased now severe subcutaneous emphysema throughout the right chest wall extending across midline to the left. There also appears to be some mediastinal emphysema as well as questionable minimal residual pleural air along the right lung base. Upper abdomen: Unchanged mild asymmetric elevation of the right hemidiaphragm. IMPRESSION: Somewhat increased severe subcutaneous emphysema. Questionable minimal residual pleural air along the right lung base, not appreciated on the prior exam. Unchanged nonspecific patchy opacity within the right midlung.
[2017-11-18] MEDS: IPRATROPIUM-ALBUTEROL 3 ML NEB IH SCH ×4 (07:08→19:35)
[2017-11-18] MEDS: PHENobarbital 32.4 MG TAB PO SCH (08:25)
[2017-11-18] MEDS: FAMOTIDINE 20 MG TAB PO SCH (08:25)
[2017-11-18] MEDS: PHENYTOIN SODIUM 100 MG PO SCH ×2 (08:25→19:57)
[2017-11-18] MEDS: clonazePAM 1 MG TAB PO SCH (08:25)
[2017-11-18] MEDS: KETOROLAC 30 MG/ML 1 ML VIAL IVP SCH ×3 (08:25→22:49)
--- NOTE | 2017-11-18 10:59 | P.PN ---
Subjective Progress Note Date: 11/18/17 Principal diagnosis: Lung cancer. History of seizure disorder, mild COPD, hypertension, GERD. Morbid obesity. Current tobacco dependence. POD #3 right middle lobectomy performed via robotic-assisted thoracoscopic approach. The patient is currently sitting up in bed. She is in no acute distress. She reports that her pain is controlled but is present to her right shoulder and surrounding her neck. She states that she is ambulating in the hallway 2-3 times yesterday and tolerated it well. Her right pleural chest tube remains in place and to waterseal with no airleak present today. Her oxygen saturations are 97% on 2 L nasal cannula. Objective - Vital Signs Vital signs: Vital Signs Temp 99 F 11/18/17 08:00 Pulse 94 11/18/17 08:00 Resp 17 11/18/17 08:00 BP 119/63 11/18/17 08:00 Pulse Ox 94 L 11/18/17 08:00 Intake & Output 11/17/17 11/18/17 11/18/17 18:59 06:59 18:59 Intake Total 200 Output Total 355 Balance -155 Weight 101 kg Intake: Oral 200 Output: Chest Tube Drainage 55 Chest Tube 55 Urine 300 Other: Voiding Method Toilet # Voids 1 - Constitutional General appearance: Present: cooperative, morbidly obese, no acute distress - EENT ENT: Present: hearing grossly normal - Neck Details: Neck is supple, no lymphadenopathy, no JVD. - Respiratory Details: Lungs sounds essentially clear throughout, diminished to her bilateral bases. Respirations are symmetrical and nonlabored. Oxygen saturation are 97% on 2 L nasal cannula. She is achieving 8207-1944 mL on her incentive spirometry. Right pleural chest tube remains in place to waterseal. No air leak present. Draining thin serosanguineous drainage. 55 L output in the last 8 hours, 150 milliliters output in 24 hours. Subcutaneous emphysema present to her right chest, right arm and surrounding her neck. - Cardiovascular Details: S1 and S2 present, negative for S3, gallop or murmur. Regular rhythm and rate. Remote telemetry showing normal sinus rhythm heart rate 95. Knee-high LENNY hose and sequential compression devices in place to bilateral lower extremities. No edema present. Peripheral pulses palpable. - Gastrointestinal Gastrointestinal Comment(s): Abdomen is soft, nontender nondistended. Active bowel sounds all 4 abdominal quadrants. Passing flatus. Tolerating oral intake. - Genitourinary Genitourinary Comment(s): Urine output adequate. Urine clear and yellow. 300 mL output in the last 8 hours. - Integumentary Integumentary Comment(s): Skin warm, dry and pink. No clubbing or cyanosis. Right pleural chest tube site covered with dry intact dressing. - Neurologic Neurologic: Present: CNII-XII intact - Musculoskeletal Musculoskeletal: Present: gait normal, strength equal bilaterally - Psychiatric Psychiatric: Present: A&O x's 3, appropriate affect, intact judgment & insight - Allied health notes Allied health notes reviewed: nursing - Labs CBC & Chem 7: 11/15/17 11:35 11/16/17 12:08 - Imaging and Cardiology Chest x-ray: report reviewed, image reviewed Assessment and Plan (1) COPD (chronic obstructive pulmonary disease) Current Visit: Yes Status: Chronic Code(s): J44.9 - CHRONIC OBSTRUCTIVE PULMONARY DISEASE, UNSPECIFIED SNOMED Code(s): 35855690 (2) GERD (gastroesophageal reflux disease) Current Visit: Yes Status: Chronic Code(s): K21.9 - GASTRO-ESOPHAGEAL REFLUX DISEASE WITHOUT ESOPHAGITIS SNOMED Code(s): 225435565 (3) Lung cancer Current Visit: Yes Status: Chronic Code(s): C34.90 - MALIGNANT NEOPLASM OF UNSP PART OF UNSP BRONCHUS OR LUNG SNOMED Code(s): 656935462 (4) Tobacco dependence Current Visit: Yes Status: Chronic Code(s): F17.200 - NICOTINE DEPENDENCE, UNSPECIFIED, UNCOMPLICATED SNOMED Code(s): 87281533 (5) History of seizure Current Visit: No Status: Chronic Code(s): Z87.898 - PERSONAL HISTORY OF OTHER SPECIFIED CONDITIONS SNOMED Code(s): 494901449 Plan: 1. We will clamp her right pleural chest tube today and potentially remove her chest tube today. 2. Wean O2 as tolerated. 3. Encourage incentive spirometry use every hour while awake. 4. Encourage smoking cessation. 5. Pain control with current when necessary medications. 6. Increase activity as tolerated. 7. GI/DVT prophylaxis. 8. Will monitor daily chest x-rays. 9. More recommendations to follow. Anticipate discharge home within the next 24 hours. Time with Patient: Greater than 30
[2017-11-18] MEDS: traMADol 50 MG TAB PO SCH ×4 (11:06→22:48)
--- NOTE | 2017-11-18 13:30 | P.PN ---
Subjective Progress Note Date: 11/18/17 Principal diagnosis: Status post right middle lobectomy This is a 57-year-old female, smoker, patient was recently evaluated by Dr. Aden for a peripheral right mid lung mass, measuring about 2.5 x 3 cm. She was also noted to have abnormal PET scan, no other areas of metabolic uptake was noted on the PET scan. Hence the index of suspicion for bronchogenic carcinoma/adenocarcinoma was very high. Patient was advised to undergo right middle lobectomy. This was done today by Dr. John, and this was done via robotic-assisted thoracoscopic approach. Postoperatively, patient was admitted to a monitor bed on selective, and I was asked to see her on consultation. The patient just came out of surgery, she is a bit sedated and confused, but in no form of respiratory distress. PFT prior to surgery was relatively normal. Patient is known to have history of seizure disorder, glaucoma, and GERD. At present the patient is not a great historian. On 11/16/2017 patient is seen in follow-up. She is having significant incisional pain from the right midlung thoracotomy and lobectomy. The chest tube is in place, and draining serosanguineous drainage. Has been 171 mL of serosanguineous output in the atrium from the right chest tube over the last 24 hours. Lung sounds show good air entry bilaterally, with a few scattered rales over right lower lobe. She is compliant with her incentive spirometer, she is able to achieve 2000 on the today. No fevers, no chills the night, no acute events. Afebrile, currently on room air with pulse ox of 97%. Her chest tube was placed to waterseal. Chest x-ray from this morning shows postop changes of the right hemothorax and probable trace left pleural effusion. Patient was reevaluated today on 11/17/2017 doing relatively well, excellent with incentive spirometry, chest x-ray is showing mostly atelectasis which is expected postoperatively. However the patient is compliant with her incentive spirometer. Labs were reviewed, patient has some pain but denies any shortness of breath. Pathology from her lobectomy is pending. Patient was reevaluated today on 11/18/2017,patient is doing well, relatively asymptomatic except for some pain.her chest tube is being clamped, may be removed later on today.chest x-ray showed significant subcutaneous emphysema otherwise unremarkable. Continues to have a right midlung opacity. Objective - Vital Signs Vital signs: Vital Signs Temp 98.7 F 11/18/17 10:51 Pulse 76 11/18/17 11:17 Resp 18 11/18/17 10:51 BP 124/67 11/18/17 10:51 Pulse Ox 93 L 11/18/17 10:51 Intake & Output 11/17/17 11/18/17 11/18/17 18:59 06:59 18:59 Intake Total 200 Output Total 355 Balance -155 Weight 101 kg Intake: Oral 200 Output: Chest Tube Drainage 55 Chest Tube 55 Urine 300 Other: Voiding Method Toilet # Voids 1 - Exam - Exam Physical examination revealed a 57-year-old female in no form of respiratory distress. HEENT: Neck is supple, no neck masses, no thyromegaly, dry mucous membranes noted. Patient is on nasal cannula. Chest: Minimal crackles at the bases, no rhonchi, no wheezes. Right-sided chest tube was noted. Cardiac: Normal S1 and S2, no gallops. Abdomen: Soft nontender no megaly no rebound no guarding. Extremities: No clubbing edema or cyanosis. Lymphatics: No lymphadenopathy Psychiatric: Slightly confused, blunted affect, Neurologic: Oriented to place, person, and time - Labs CBC & Chem 7: 11/15/17 11:35 11/16/17 12:08 Assessment and Plan Assessment: Impression: 1 status post right middle lobectomy performed via robotic-assisted thoracoscopic approach. Postoperative day #2 2 history of seizure disorder 3 history of mild COPD 4 history of hypertension 5 history of GERD Recommendation: Continue present incentive spirometry, bronchodilators, ambulation, await pathology report, will follow. Time with Patient: Less than 30
--- NOTE | 2017-11-18 16:34 | PN ---
PROGRESS NOTE DATE OF SERVICE: November 18, 2017. She has been hemodynamically stable. She has pain in the right side of her chest and continues to have a chest tube. There continues to be movement off air despite it apparently being clamped. The patient also has a low-grade fever. PHYSICAL EXAMINATION: Blood pressure 108/58, respiratory rate of 18, pulse rate 95, temperature 100.1 degrees Fahrenheit, O2 saturation on 2 L by nasal cannula is 98%. HEENT: Unremarkable. Chest reveals chest tube on the right side with decreased breath sounds. Occasional crackle. Cardiovascular system is S1, S2. ABDOMEN: Soft there is no edema. There are no new labs. Chest x-ray shows increased subcutaneous emphysema on the right chest wall extending across the midline with questionable minimal residual pleural air. IMPRESSION: At this time: 1. Status post right middle lobectomy for lung cancer. Pathology itself is pending. 2. Chronic obstructive pulmonary disease. 3. Hypertension. 4. Gastroesophageal reflux disease. Continue incentive spirometry. Increase activity level. We are covering for Dr. Hagen who will be back tomorrow morning. MMODL / IJN: [id number] /
[2017-11-18] MEDS: PHENobarbital 64.8 MG TAB PO SCH (20:10)
[2017-11-18] MEDS: ACETAMINOPHEN TAB 325 MG TAB PO PRN (20:10)
[2017-11-19 06:19] LABS: Basophils % (A) 0 %; Eosinophils # (A) 0.2 k/uL (0-0.7); Eosinophils % (A) 3 %; HCT 35.2 % (34.0-46.0); HGB 11.1 gm/dL (11.4-16.0); Lymphocytes # (A) 1.9 k/uL (1.0-4.8); Lymphocytes % (A) 27 %; MCH 30.1 pg (25.0-35.0); MCHC 31.6 g/dL (31.0-37.0); MCV 95.3 fL (80.0-100.0); Mean Platelet Volume 6.9; Monocytes # (A) 0.3 k/uL (0-1.0); Monocytes % (A) 4 %; Neutrophils # (A) 4.3 k/uL (1.3-7.7); Neutrophils % (A) 63 %; Platelet Count 325 k/uL (150-450); RBC 3.69 m/uL (3.80-5.40); RDW 15.7 % (11.5-15.5); WBC 6.8 k/uL (3.8-10.6)
[2017-11-19 06:38] LABS: Anion Gap 8 mmol/L; Blood Urea Nitrogen 9 mg/dL (7-17); Carbon Dioxide 30 mmol/L (22-30); Chloride 102 mmol/L (98-107); Glucose 97 mg/dL (74-99); Potassium 4.5 mmol/L (3.5-5.1); Sodium 140 mmol/L (137-145)
--- NOTE | 2017-11-19 06:58 | XR ---
EXAMINATION TYPE: XR chest 2V DATE OF EXAM: 11/19/2017 COMPARISON: Chest x-ray from yesterday and older studies HISTORY: Pneumothorax progress study. TECHNIQUE: Frontal and lateral views of the chest are obtained. FINDINGS: There is extensive overlying subcutaneous emphysema worse on the right and posterior aspec ts with supraclavicular extension. There is small right apical pneumothorax despite chest tube placem ent seen better on current study. There is chronic reticular interstitial changes with right infrahil ar opacity. No mediastinal shift is identified. No large pleural effusion is identified. Cardiac silh ouette size is within normal limits. Osseous structures are intact. IMPRESSION: Persistent prominent subcutaneous emphysema. Better visualized small right apical pneumo thorax despite chest tube placement. Chronic parenchymal changes with persistent right infrahilar inf iltrate and/or atelectasis.
[2017-11-19] MEDS: KETOROLAC 30 MG/ML 1 ML VIAL IVP SCH (07:03)
[2017-11-19] MEDS: ACETAMINOPHEN TAB 325 MG TAB PO PRN ×3 (07:03→23:02)
[2017-11-19] MEDS: IPRATROPIUM-ALBUTEROL 3 ML NEB IH SCH ×4 (07:48→19:57)
[2017-11-19] MEDS: PHENYTOIN SODIUM 100 MG PO SCH ×2 (09:03→21:23)
[2017-11-19] MEDS: PHENobarbital 32.4 MG TAB PO SCH (09:03)
[2017-11-19] MEDS: FAMOTIDINE 20 MG TAB PO SCH (09:03)
[2017-11-19] MEDS: HEPARIN SODIUM,PORCINE 5,000 UNIT/ML 1 ML VIAL SQ SCH ×3 (09:03→23:03)
[2017-11-19] MEDS: clonazePAM 1 MG TAB PO SCH (09:03)
[2017-11-19] MEDS: traMADol 50 MG TAB PO SCH ×4 (09:04→21:25)
--- NOTE | 2017-11-19 09:26 | P.PN ---
Subjective Progress Note Date: 11/19/17 Principal diagnosis: Lung cancer. History of seizure disorder, COPD, hypertension, GERD. Tobacco dependence. POD #4 right middle lobectomy performed via robotic-assisted thoracoscopic approach. Patient's currently sitting up in bed in no acute distress. States she does have some pain in her right shoulder area but it is well-controlled. She has been ambulating in the hallway. Her chest tube has been to waterseal for more than 24 hours, intermittent air leak remains. Objective - Vital Signs Vital signs: Vital Signs Temp 97.8 F 11/19/17 09:00 Pulse 80 11/19/17 09:00 Resp 16 11/19/17 09:00 BP 107/69 11/19/17 09:00 Pulse Ox 93 L 11/19/17 07:48 Intake & Output 11/18/17 11/19/17 11/19/17 18:59 06:59 18:59 Output Total 65 500 0 Balance -65 -500 0 Weight 100.2 kg Output: Chest Tube Drainage 65 0 0 Chest Tube 65 0 0 Urine 500 Other: Voiding Method Toilet Toilet # Voids 1 - Constitutional General appearance: Present: cooperative, no acute distress, obese - Respiratory Details: Lungs sounds diminished bilaterally with coarse breath sounds in the right base. Respirations even, nonlabored. Currently on 2 L nasal cannula with oxygen saturation 93%. Able to achieve 1750 mL on her incentive spirometry. Productive cough with yellowish sputum. Right pleural chest tube to waterseal, 80 mL thin serous drainage in the last 24 hours, positive intermittent air leak. Subcu emphysema felt over anterior and posterior chest. - Cardiovascular Details: S1, S2 present. Regular rate and rhythm, sinus rhythm on telemetry. Palpable peripheral pulses bilaterally. No edema present. No calf pain or tenderness noted. SCDs present. - Gastrointestinal Gastrointestinal Comment(s): Abdomen soft, nontender, nondistended. Active bowel sounds 4 quadrants. Tolerating diet. - Genitourinary Genitourinary Comment(s): Continues to void clear, yellow urine. - Integumentary Integumentary Comment(s): Skin is warm and dry with evidence of good perfusion. Incisions to right lateral chest wall are well approximated. - Neurologic Neurologic: Present: CNII-XII intact - Musculoskeletal Musculoskeletal: Present: gait normal, strength equal bilaterally - Psychiatric Psychiatric: Present: A&O x's 3, appropriate affect, intact judgment & insight - Allied health notes Allied health notes reviewed: nursing - Labs CBC & Chem 7: 11/19/17 05:28 11/19/17 05:28 Labs: Abnormal Lab Results - Last 24 Hours (Table) 11/19/17 Range/Units 05:28 RBC 3.69 L (3.80-5.40) m/uL Hgb 11.1 L (11.4-16.0) gm/dL RDW 15.7 H (11.5-15.5) % - Imaging and Cardiology Chest x-ray: report reviewed, image reviewed Assessment and Plan (1) History of seizure Current Visit: No Status: Chronic Code(s): Z87.898 - PERSONAL HISTORY OF OTHER SPECIFIED CONDITIONS SNOMED Code(s): 433684183 (2) COPD (chronic obstructive pulmonary disease) Current Visit: Yes Status: Chronic Code(s): J44.9 - CHRONIC OBSTRUCTIVE PULMONARY DISEASE, UNSPECIFIED SNOMED Code(s): 88294116 (3) Tobacco dependence Current Visit: Yes Status: Chronic Code(s): F17.200 - NICOTINE DEPENDENCE, UNSPECIFIED, UNCOMPLICATED SNOMED Code(s): 77069041 (4) GERD (gastroesophageal reflux disease) Current Visit: Yes Status: Chronic Code(s): K21.9 - GASTRO-ESOPHAGEAL REFLUX DISEASE WITHOUT ESOPHAGITIS SNOMED Code(s): 944888398 (5) Lung cancer Current Visit: Yes Status: Chronic Code(s): C34.90 - MALIGNANT NEOPLASM OF UNSP PART OF UNSP BRONCHUS OR LUNG SNOMED Code(s): 100497633 Plan: 1. Will keep right pleural chest tube to waterseal and monitor for air leak. 2. Wean O2 as tolerated. 3. Encourage incentive spirometry use 10 times every hour. 4. Encourage smoking cessation. 5. Pain control with current regimen. 6. Increase activity ambulate in room. 7. GI/DVT prophylaxis. 8. Will monitor daily chest x-rays. 9. More recommendations to follow. Time with Patient: Greater than 30
--- NOTE | 2017-11-19 13:19 | P.PN ---
Subjective Progress Note Date: 11/19/17 Principal diagnosis: Right-sided midlung area mass, status post robotic-assisted thoracoscopic right middle lobectomy, postop day 1 This is a 57-year-old female, smoker, patient was recently evaluated by Dr. Aden for a peripheral right mid lung mass, measuring about 2.5 x 3 cm. She was also noted to have abnormal PET scan, no other areas of metabolic uptake was noted on the PET scan. Hence the index of suspicion for bronchogenic carcinoma/adenocarcinoma was very high. Patient was advised to undergo right middle lobectomy. This was done today by Dr. John, and this was done via robotic-assisted thoracoscopic approach. Postoperatively, patient was admitted to a monitor bed on selective, and I was asked to see her on consultation. The patient just came out of surgery, she is a bit sedated and confused, but in no form of respiratory distress. PFT prior to surgery was relatively normal. Patient is known to have history of seizure disorder, glaucoma, and GERD. At present the patient is not a great historian. On 11/18/2017 patient is seen in follow-up. She is having significant incisional pain from the right midlung thoracotomy and lobectomy. The chest tube is in place, and draining serosanguineous drainage. Has been 171 mL of serosanguineous output in the atrium from the right chest tube over the last 24 hours. Lung sounds show good air entry bilaterally, with a few scattered rales over right lower lobe. She is compliant with her incentive spirometer, she is able to achieve 2000 on the today. No fevers, no chills the night, no acute events. Afebrile, currently on room air with pulse ox of 97%. Her chest tube was placed to waterseal. Chest x-ray from this morning shows postop changes of the right hemothorax and probable trace left pleural effusion. On 11/19/2017 patient seen in follow-up on selective care unit. She is resting in bed, denies any acute distress. Right-sided chest tube is still in place to waterseal. There is an air leak present. Today's chest x-ray shows persistent prominent subcutaneous emphysema and small right apical pneumothorax. Patient is compliant with her incentive spirometer, able to achieve 2000 on the today. Lung sounds are positive for scattered crackles at the bases. Patient's right upper chest, right posterior chest around the right chest tube insertion site are positive for subcutaneous emphysema. But this is decreased compared to yesterday per patient's statement, when the subcu emphysema was extending into her right upper neck area. Patient remains hemodynamically stable. Did have a low-grade fever of 100.1F yesterday at 1445. No new episodes of fever since then. She is on room air with O2 sat at 96%. Objective - Vital Signs Vital signs: Vital Signs Temp 98.1 F 11/19/17 11:15 Pulse 88 11/19/17 11:53 Resp 16 11/19/17 11:53 BP 103/71 11/19/17 11:15 Pulse Ox 96 11/19/17 11:15 Intake & Output 11/18/17 11/19/17 11/19/17 18:59 06:59 18:59 Intake Total 180 Output Total 65 500 0 Balance -65 -500 180 Weight 100.2 kg Intake: Oral 180 Output: Chest Tube Drainage 65 0 0 Chest Tube 65 0 0 Urine 500 Other: Voiding Method Toilet Toilet # Voids 1 - Exam Physical examination revealed a 57-year-old female in no form of respiratory distress. HEENT: Neck is supple, no neck masses, no thyromegaly, dry mucous membranes noted. Patient is on nasal cannula. Chest: Minimal crackles at the bases, no rhonchi, no wheezes. Right-sided chest tube was noted. There is subcutaneous emphysema noted around the chest tube insertion site, right posterior chest, right upper anterior chest Cardiac: Normal S1 and S2, no gallops. Abdomen: Soft nontender no megaly no rebound no guarding. Extremities: No clubbing edema or cyanosis. Lymphatics: No lymphadenopathy Psychiatric: blunted affect Neurologic: Oriented to place, person, and not time. - Labs CBC & Chem 7: 11/19/17 05:28 11/19/17 05:28 Labs: Abnormal Lab Results - Last 24 Hours (Table) 11/19/17 Range/Units 05:28 RBC 3.69 L (3.80-5.40) m/uL Hgb 11.1 L (11.4-16.0) gm/dL RDW 15.7 H (11.5-15.5) % Assessment and Plan Plan: Assessment: 1 status post right middle lobectomy performed via robotic-assisted thoracoscopic approach. Postoperative day #1. 2 history of seizure disorder 3 history of mild COPD 4 history of hypertension 5 history of GERD Recommendation: Encourage ambulation, encourage incentive spirometry use, pain control. Continue nebulized treatments, we'll continue current plan of treatment. I performed a history & physical examination of the patient and discussed their management with my nurse practitioner, Emily Barone. I reviewed the nurse practitioner's note and agree with the documented findings and plan of care. Lung sounds are positive for bibasilar crackles. The findings and the impression was discussed with the patient. I attest to the documentation by the nurse practitioner. Time with Patient: Less than 30
[2017-11-19] MEDS: PSYLLIUM HUSK 100% 6 GM PACKET PO SCH (21:22)
[2017-11-19] MEDS: PHENobarbital 64.8 MG TAB PO SCH (21:25)
[2017-11-20] MEDS: ACETAMINOPHEN TAB 325 MG TAB PO PRN ×4 (06:12→23:09)
--- NOTE | 2017-11-20 07:31 | P.PN ---
Subjective Progress Note Date: 11/20/17 Principal diagnosis: Lung cancer. History of seizure disorder, COPD, hypertension, GERD. Tobacco dependence. POD #5 right middle lobectomy performed via robotic-assisted thoracoscopic approach. Patient's currently sitting up in bed in no acute distress. States pain is well controlled on current pain medication. She has been ambulating in the hallway. Her chest tube has been to waterseal for more than 48 hours, intermittent air leak remains. Objective - Vital Signs Vital signs: Vital Signs Temp 97.0 F L 11/20/17 04:00 Pulse 99 11/20/17 04:00 Resp 24 11/20/17 04:00 BP 108/62 11/20/17 04:00 Pulse Ox 94 L 11/20/17 04:00 Intake & Output 11/19/17 11/20/17 11/20/17 18:59 06:59 18:59 Intake Total 660 Output Total 635 310 Balance 25 -310 Weight 99.5 kg Intake: Oral 660 Output: Chest Tube Drainage 10 10 Chest Tube 10 10 Drainage 0 Right Chest 0 Urine 625 300 Other: Voiding Method Toilet Toilet # Voids 1 # Bowel Movements 1 - Constitutional General appearance: Present: cooperative, no acute distress, obese - Respiratory Details: Lungs sounds diminished bilaterally. Respirations even, nonlabored. Currently on 2 L nasal cannula with oxygen saturation 94%. Able to achieve 1750 mL on her incentive spirometry. Right pleural chest tube present to waterseal, 10 mL serous drainage overnight, 90 mL last 24 hours, intermittent air leak remains. - Cardiovascular Details: S1, S2 present, no murmur noted. Regular rate and rhythm, sinus rhythm on telemetry. Palpable peripheral pulses bilaterally. No edema present. No calf pain or tenderness noted. These present. - Gastrointestinal Gastrointestinal Comment(s): Abdomen soft, nontender, nondistended, obese. Active bowel sounds 4 quadrants. Tolerating diet. Positive bowel movement. - Genitourinary Genitourinary Comment(s): Continues to void clear, yellow urine. - Integumentary Integumentary Comment(s): Skin is warm and dry with evidence of good perfusion. Right lateral chest incisions well approximated and covered dry intact dressings. - Neurologic Neurologic: Present: CNII-XII intact - Musculoskeletal Musculoskeletal: Present: gait normal, strength equal bilaterally - Psychiatric Psychiatric: Present: A&O x's 3, appropriate affect, intact judgment & insight - Allied health notes Allied health notes reviewed: nursing - Labs CBC & Chem 7: 11/19/17 05:28 11/19/17 05:28 - Imaging and Cardiology Chest x-ray: image reviewed Assessment and Plan (1) History of seizure Current Visit: No Status: Chronic Code(s): Z87.898 - PERSONAL HISTORY OF OTHER SPECIFIED CONDITIONS SNOMED Code(s): 702942677 (2) COPD (chronic obstructive pulmonary disease) Current Visit: Yes Status: Chronic Code(s): J44.9 - CHRONIC OBSTRUCTIVE PULMONARY DISEASE, UNSPECIFIED SNOMED Code(s): 95968500 (3) Tobacco dependence Current Visit: Yes Status: Chronic Code(s): F17.200 - NICOTINE DEPENDENCE, UNSPECIFIED, UNCOMPLICATED SNOMED Code(s): 71279230 (4) GERD (gastroesophageal reflux disease) Current Visit: Yes Status: Chronic Code(s): K21.9 - GASTRO-ESOPHAGEAL REFLUX DISEASE WITHOUT ESOPHAGITIS SNOMED Code(s): 950502924 (5) Lung cancer Current Visit: Yes Status: Chronic Code(s): C34.90 - MALIGNANT NEOPLASM OF UNSP PART OF UNSP BRONCHUS OR LUNG SNOMED Code(s): 915037906 Plan: 1. Will keep right pleural chest tube to waterseal and continue to monitor for air leak. 2. Wean O2 as tolerated. 3. Encourage incentive spirometry use 10 times every hour. 4. Encourage smoking cessation. 5. Pain control with current regimen. 6. Increase activity ambulate in room. 7. GI/DVT prophylaxis. 8. Will monitor daily chest x-rays. 9. Lung pathology pending 10. More recommendations to follow. Time with Patient: Greater than 30
[2017-11-20] MEDS: IPRATROPIUM-ALBUTEROL 3 ML NEB IH SCH ×4 (07:40→20:01)
--- NOTE | 2017-11-20 07:57 | XR ---
EXAMINATION TYPE: XR chest 2V DATE OF EXAM: 11/20/2017 COMPARISON: 11/19/2017 HISTORY: Pneumothorax follow-up TECHNIQUE: Frontal and lateral views of the chest are obtained. FINDINGS: Small right apical pneumothorax is unchanged. Right-sided chest tube unchanged in position. Extensive subcutaneous emphysema persists. Left lung is clear. No evidence for mediastinal shift. Heart size is stable. Mediastinal structures are stable and grossly unremarkable. No evidence for hilar prominence. Degenerative changes dorsal spine. IMPRESSION: 1. Essentially stable small right-sided pneumothorax.
[2017-11-20] MEDS: HEPARIN SODIUM,PORCINE 5,000 UNIT/ML 1 ML VIAL SQ SCH ×3 (08:15→23:12)
[2017-11-20] MEDS: FAMOTIDINE 20 MG TAB PO SCH (08:15)
[2017-11-20] MEDS: PHENYTOIN SODIUM 100 MG PO SCH ×2 (08:15→21:20)
[2017-11-20] MEDS: PSYLLIUM HUSK 100% 6 GM PACKET PO SCH ×2 (08:15→14:57)
[2017-11-20] MEDS: clonazePAM 1 MG TAB PO SCH (08:20)
[2017-11-20] MEDS: traMADol 50 MG TAB PO SCH ×4 (08:20→21:14)
[2017-11-20] MEDS: PHENobarbital 32.4 MG TAB PO SCH (08:21)
--- NOTE | 2017-11-20 11:19 | P.PN ---
Subjective Progress Note Date: 11/20/17 Principal diagnosis: Status post right middle lobectomy Progress note dated 11/20/2017 This is a 57-year-old female who is postop day #2 status post robotic-assisted thoracoscopic right middle lobectomy. She has a history of seizure disorder mild COPD, hypertension and GERD. The patient continues to do well. Still has a leak. The patient has significant subcutaneous emphysema on the right side including right neck chest back and right lateral chest area. She feels well otherwise. Does have some pain especially when the area is touched are palpated or when she takes a deep breath coughs or sneezes. Other than that she seems to be progressing relatively nicely. Objective - Vital Signs Vital signs: Vital Signs Temp 97.9 F 11/20/17 11:07 Pulse 83 11/20/17 11:09 Resp 20 11/20/17 11:09 BP 112/61 11/20/17 11:07 Pulse Ox 94 L 11/20/17 11:07 Intake & Output 11/19/17 11/20/17 11/20/17 18:59 06:59 18:59 Intake Total 660 320 Output Total 635 310 Balance 25 -310 320 Weight 99.5 kg Intake: Oral 660 320 Output: Chest Tube Drainage 10 10 Chest Tube 10 10 Drainage 0 Right Chest 0 Urine 625 300 Other: Voiding Method Toilet Toilet Toilet # Voids 1 # Bowel Movements 1 - Exam No acute distress, oriented 3. HEENT examination is grossly unremarkable. Mucous membranes are moist. No oral lesions. Neck supple. Full range of motion. No adenopathy thyromegaly or neck vein distention. Cardiovascular examination reveals regular rhythm rate. S1-S2 normal. No S3 or S4. No discernible murmur noted. Lungs reveal diminished breath sounds particularly on the right side. She does not like to take a deep breath. She has significant subcutaneous emphysema on the right neck shoulder chest back and lateral chest area. Abdomen soft bowel sounds are heard. No masses or tenderness. Extremities are intact. No cyanosis clubbing or edema. Skin is without rash or lesion. Neurologic examination is brief but nonfocal. - Labs CBC & Chem 7: 11/19/17 05:28 11/19/17 05:28 Assessment and Plan Assessment: Assessment Status post right middle lobectomy, performed via robotic-assisted thoracoscopic approach, postop day #2 History of seizure disorder History of mild COPD History of benign essential hypertension History of GERD Plan: Plan dated 11/20/2017 The patient will reminded about the importance of deep breathing coughing and clearing of secretions. She'll continue using incentive spirometer. We did check the chest tube set up. Everything seemed to be appropriate. She still does have a leak when she takes deep breath or when she coughs. We'll continue to follow. Prognosis is guarded. Time with Patient: Less than 30
--- NOTE | 2017-11-20 14:27 | PN ---
PROGRESS NOTE DATE OF SERVICE: 11/16/2017. CHIEF COMPLAINT: CA of the right lung. HISTORY OF PRESENT ILLNESS: This lady is doing well, other than a little discomfort. She has had no fever or chills. PHYSICAL EXAM: Breath sounds are heard on both sides including on the right where her chest tube was placed. Cardiac exam is normal. Abdomen is soft, nontender. IMPRESSION: Carcinoma of the right middle lobe of lung, status post right middle lobectomy. PLAN: Resume her anticonvulsant treatment and continue to follow. MMODL / IJN: [id number] /
--- NOTE | 2017-11-20 14:42 | PN ---
PROGRESS NOTE DATE OF SERVICE: 11/19/17 CHIEF COMPLAINT: Status post right middle lobectomy. HISTORY OF PRESENT ILLNESS: This lady is having trouble with air leak. She has subcutaneous emphysema in the right side of the neck, supraclavicular area and chest. She has had no fever or chills. PHYSICAL EXAM: Breath sounds are heard on both sides. Cardiac exam is normal. There is subcutaneous emphysema around the area of the right clavicle. The chest tube is still in place. IMPRESSION: 1. Status post right lobectomy. 2. Carcinoma of lung. 3. Chronic obstructive pulmonary disease. 4. Seizure disorder. 5. Subcutaneous emphysema. PLAN: No change in program and expect this will resolve. MMODL / IJN: [id number] /
[2017-11-20] MEDS ORDERED: MORPHINE SULFATE 2 MG/ML SYRINGE IVP STA (14:45)
--- NOTE | 2017-11-20 14:48 | PN ---
PROGRESS NOTE DATE OF SERVICE: 11/20/17. CHIEF COMPLAINT: Subcutaneous emphysema after a right middle lobe lobectomy. HISTORY OF PRESENT ILLNESS: This lady is comfortable but still has some subcu emphysema. Chest tube still in place. PHYSICAL EXAM: She is afebrile. Chest is clear. Cardiac exam is normal. The abdomen is soft. IMPRESSION: 1. Status post right middle lobectomy. 2. Chronic obstructive pulmonary disease. 3. Subcutaneous emphysema on the right. 4. Seizure disorder. PLAN: Continue to follow with thoracic surgery. MMODL / IJN: [id number] /
--- NOTE | 2017-11-20 14:57 | CONS ---
CONSULTATION CHIEF COMPLAINT: Lung mass in the right middle lobe. HISTORY OF PRESENT ILLNESS: This is another admission for this 57-year-old female who has a long smoking history. She recently was found to have a nodule in the right lung and she is coming in for an elective right middle lobectomy. REVIEW OF SYSTEMS: She has had no headaches, neurologic problems except she has a long-standing history of seizures, which have been under good control. She has had no problems with vision or hearing and she has had no chest pain, palpitations, abdominal pain, nausea, vomiting, hematemesis, melena, and hematochezia, jaundice, renal failure, diabetes, etc. Past medical history, family history, personal and social history can be found in her admitting note. ALLERGIC: TO PENICILLIN AND CODEINE. MEDICATIONS: She is currently on vitamin D, updrafts with albuterol, Pepcid 40 mg once a day, phenobarb 32.4 mg t.i.d., Klonopin 2 mg once a day p.r.n., Dilantin 100 mg 2 twice a day. She has recently quit smoking. PHYSICAL EXAM: Blood pressure 130/78, pulse 96, respirations of 30 and she is afebrile. In general she appeared to be overweight in no acute distress. Skin color is normal. Skin is warm, dry. Lymph nodes are not enlarged. Head, ears, eyes, nose, mouth, and throat are normal. Neck veins are not distended. Chest is clear. Cardiac exam is normal sinus rhythm and no murmurs. The abdomen is protuberant, soft, without any visceromegaly or masses. Extremities are normal. Neurological: She is intact. She is admitted to the hospital with diagnoses: 1. Right middle lobe lung neoplasm. 2. Chronic obstructive pulmonary disease. 3. Seizure disorder. 4. Obesity. RECOMMENDATIONS: None. MMODL / IJN: [id number] /
[2017-11-20] MEDS ORDERED: KETOROLAC 30 MG/ML 1 ML VIAL IVP STA (18:58)
[2017-11-20] MEDS: PHENobarbital 64.8 MG TAB PO SCH (21:14)
[2017-11-21] MEDS: ACETAMINOPHEN TAB 325 MG TAB PO PRN ×3 (02:54→13:28)
[2017-11-21] MEDS: traMADol 50 MG TAB PO SCH ×2 (05:50→13:28)
--- NOTE | 2017-11-21 08:32 | XR ---
EXAMINATION TYPE: XR chest 2V DATE OF EXAM: 11/21/2017 COMPARISON: 11/20/2017 HISTORY: History of pneumonia TECHNIQUE: Frontal and lateral views of the chest are obtained. FINDINGS: There is a minimally enlarging right apical pneumothorax with a maximum apical pleural sep aration of 1.1 cm. This corresponds to a less than 10% volume (calculated to be 9.3%). Multifocal rig ht sided reticular airspace disease may relate to multifocal atelectasis. Extensive subcutaneous emph ysema of the neck and right lateral chest wall are unchanged from the prior. Left lung remains clear. Cardia mediastinal silhouette is mildly enlarged. IMPRESSION: Minimally enlarging, now less than 10%, right-sided pneumothorax with redemonstration of multifocal right sided reticular airspace disease that may represent atelectasis and extensive subcu taneous emphysema.
[2017-11-21] MEDS: IPRATROPIUM-ALBUTEROL 3 ML NEB IH SCH ×2 (08:39→11:57)
--- NOTE | 2017-11-21 09:02 | P.PN ---
Subjective Progress Note Date: 11/21/17 Principal diagnosis: Lung cancer. History of seizure disorder, mild COPD, hypertension, GERD. Morbid obesity. Current tobacco dependence. POD #6 right middle lobectomy performed via robotic-assisted thoracoscopic approach. The patient is currently sitting up in bed. She is in no acute distress. She reports that her pain is 6 out of 10 on the pain scale. She reports that her pain is underneath her right breast. She states that she is ambulating in the hallway 2-3 times yesterday and tolerated it well. Her right pleural chest tube was removed yesterday 11/20/2017. She remains to have some residual subcutaneous emphysema to her right shoulder and right posterior lateral chest. Her oxygen saturations are 98% on room air. Objective - Vital Signs Vital signs: Vital Signs Temp 98.0 F 11/21/17 07:37 Pulse 92 11/21/17 08:51 Resp 16 11/21/17 07:37 BP 104/70 11/21/17 07:37 Pulse Ox 98 11/21/17 07:37 Intake & Output 11/20/17 11/21/17 11/21/17 18:59 06:59 18:59 Intake Total 710 360 Output Total 525 Balance 185 360 Weight 99.9 kg Intake: Oral 710 360 Output: Urine 525 Other: Voiding Method Toilet Toilet # Voids 2 1 - Constitutional General appearance: Present: cooperative, morbidly obese, no acute distress - EENT ENT: Present: hearing grossly normal - Neck Details: Neck is supple, no JVD or lymphadenopathy. Subcutaneous emphysema to her right neck, right shoulder and right posterior lateral chest. - Respiratory Details: Lung sounds essentially clear throughout, few scattered crackles to her right lower lobe. Respirations are symmetrical and nonlabored. Oxygen saturation are 98% on room air. She is achieving 1800 mL on her incentive spirometry. Right pleural chest tube was removed yesterday 11/20/2017. Chest x-ray this a.m. demonstrates a less than 10% right apical pneumothorax. - Cardiovascular Details: Regular rhythm and rate. S1 and S2 present, negative for S3, gallop or murmur. Remote telemetry showing normal sinus rhythm heart rate 77. No edema present. Peripheral pulses palpable. Knee-high LENNY hose and sequential compression devices in place to her bilateral lower extremities. - Gastrointestinal Gastrointestinal Comment(s): Abdomen is soft, nontender and nondistended. Active bowel sounds all 4 abdominal quadrants. Bowel movement yesterday 11/20/2017. Tolerating oral intake. Denies nausea. - Genitourinary Genitourinary Comment(s): Adequate urine output. - Neurologic Neurologic: Present: CNII-XII intact - Musculoskeletal Musculoskeletal: Present: gait normal, strength equal bilaterally - Psychiatric Psychiatric: Present: A&O x's 3, appropriate affect, intact judgment & insight - Allied health notes Allied health notes reviewed: nursing - Labs CBC & Chem 7: 11/19/17 05:28 11/19/17 05:28 - Imaging and Cardiology Chest x-ray: report reviewed, image reviewed Assessment and Plan (1) COPD (chronic obstructive pulmonary disease) Current Visit: Yes Status: Chronic Code(s): J44.9 - CHRONIC OBSTRUCTIVE PULMONARY DISEASE, UNSPECIFIED SNOMED Code(s): 31073600 (2) GERD (gastroesophageal reflux disease) Current Visit: Yes Status: Chronic Code(s): K21.9 - GASTRO-ESOPHAGEAL REFLUX DISEASE WITHOUT ESOPHAGITIS SNOMED Code(s): 446805319 (3) Lung cancer Current Visit: Yes Status: Chronic Code(s): C34.90 - MALIGNANT NEOPLASM OF UNSP PART OF UNSP BRONCHUS OR LUNG SNOMED Code(s): 040934607 (4) Tobacco dependence Current Visit: Yes Status: Chronic Code(s): F17.200 - NICOTINE DEPENDENCE, UNSPECIFIED, UNCOMPLICATED SNOMED Code(s): 06074165 (5) History of seizure Current Visit: No Status: Chronic Code(s): Z87.898 - PERSONAL HISTORY OF OTHER SPECIFIED CONDITIONS SNOMED Code(s): 023232746 Plan: 1. The patient will be discharged home today and will repeat an x-ray in 1 week unless patient's symptoms worsen.. 2. Pulmonary recommendations per Dr. Bravo. 3. Encourage incentive spirometry use every hour while awake. 4. Encourage smoking cessation. 5. Pain control with current when necessary medications. 6. Increase activity as tolerated. 7. GI/DVT prophylaxis. 8. Pathology results are back and demonstrates pulmonary adenocarcinoma. 2 hilar lymph nodes negative for metastasis. 9. More recommendations to follow. The patient will be discharged home today. Time with Patient: Greater than 30
[2017-11-21] MEDS: PHENobarbital 32.4 MG TAB PO SCH (09:23)
[2017-11-21] MEDS: PSYLLIUM HUSK 100% 6 GM PACKET PO SCH (09:23)
[2017-11-21] MEDS: FAMOTIDINE 20 MG TAB PO SCH (09:23)
[2017-11-21] MEDS: PHENYTOIN SODIUM 100 MG PO SCH (09:23)
[2017-11-21] MEDS: clonazePAM 1 MG TAB PO SCH (09:30)
[2017-11-21] MEDS: HEPARIN SODIUM,PORCINE 5,000 UNIT/ML 1 ML VIAL SQ SCH (09:36)
[2017-11-21 11:13] VITALS: BP 83/61; RESP 16; TEMP 98.1
[2017-11-21 12:09] VITALS: PULSE 92
--- NOTE | 2017-11-21 12:09 | P.PN ---
Subjective Progress Note Date: 11/21/17 Principal diagnosis: Right-sided mid lung mass, status post robotic-assisted thorascopic right middle lobectomy. This is a 57-year-old female, smoker, patient was recently evaluated by Dr. Aden for a peripheral right mid lung mass, measuring about 2.5 x 3 cm. She was also noted to have abnormal PET scan, no other areas of metabolic uptake was noted on the PET scan. Hence the index of suspicion for bronchogenic carcinoma/adenocarcinoma was very high. Patient was advised to undergo right middle lobectomy. This was done today by Dr. John, and this was done via robotic-assisted thoracoscopic approach. Postoperatively, patient was admitted to a monitor bed on selective, and I was asked to see her on consultation. The patient just came out of surgery, she is a bit sedated and confused, but in no form of respiratory distress. PFT prior to surgery was relatively normal. Patient is known to have history of seizure disorder, glaucoma, and GERD. At present the patient is not a great historian. On 11/18/2017 patient is seen in follow-up. She is having significant incisional pain from the right midlung thoracotomy and lobectomy. The chest tube is in place, and draining serosanguineous drainage. Has been 171 mL of serosanguineous output in the atrium from the right chest tube over the last 24 hours. Lung sounds show good air entry bilaterally, with a few scattered rales over right lower lobe. She is compliant with her incentive spirometer, she is able to achieve 2000 on the today. No fevers, no chills the night, no acute events. Afebrile, currently on room air with pulse ox of 97%. Her chest tube was placed to waterseal. Chest x-ray from this morning shows postop changes of the right hemothorax and probable trace left pleural effusion. On 11/19/2017 patient seen in follow-up on selective care unit. She is resting in bed, denies any acute distress. Right-sided chest tube is still in place to waterseal. There is an air leak present. Today's chest x-ray shows persistent prominent subcutaneous emphysema and small right apical pneumothorax. Patient is compliant with her incentive spirometer, able to achieve 2000 on the today. Lung sounds are positive for scattered crackles at the bases. Patient's right upper chest, right posterior chest around the right chest tube insertion site are positive for subcutaneous emphysema. But this is decreased compared to yesterday per patient's statement, when the subcu emphysema was extending into her right upper neck area. Patient remains hemodynamically stable. Did have a low-grade fever of 100.1F yesterday at 1445. No new episodes of fever since then. She is on room air with O2 sat at 96%. Progress note dated 11/20/2017 This is a 57-year-old female who is postop day #2 status post robotic-assisted thoracoscopic right middle lobectomy. She has a history of seizure disorder mild COPD, hypertension and GERD. The patient continues to do well. Still has a leak. The patient has significant subcutaneous emphysema on the right side including right neck chest back and right lateral chest area. She feels well otherwise. Does have some pain especially when the area is touched are palpated or when she takes a deep breath coughs or sneezes. Other than that she seems to be progressing relatively nicely. The patient is seen again today 11/21/2017 in follow-up on the selective care unit. She is awake and alert in no acute distress. Her chest x-ray revealed less than 10% right-sided pneumothorax with multifocal right-sided reticular airspace disease and continued subcutaneous emphysema. She had her chest tube removed today. She is maintaining good O2 saturations in the mid 90s on room air. Her pain is well controlled. She denies any worsening shortness of breath , cough or congestion. No chills or night sweats. She is afebrile. Pathology is positive for pulmonary adenocarcinoma two hilar lymph nodes negative for metastasis. Objective - Vital Signs Vital signs: Vital Signs Temp 98.1 F 11/21/17 11:12 Pulse 90 11/21/17 11:12 Resp 16 11/21/17 11:12 BP 83/61 11/21/17 11:12 Pulse Ox 96 11/21/17 11:12 Intake & Output 11/20/17 11/21/17 11/21/17 18:59 06:59 18:59 Intake Total 710 360 640 Output Total 525 Balance 185 360 640 Weight 99.9 kg Intake: Oral 710 360 640 Output: Urine 525 Other: Voiding Method Toilet Toilet Toilet # Voids 2 1 - Exam GENERAL EXAM: Alert, active, comfortable in no apparent distress. HEAD: Normocephalic. EYES: Normal reaction of pupils, equal size. NOSE: Clear with pink turbinates. THROAT: No erythema or exudates. NECK: No masses, no JVD. CHEST: Subcutaneous emphysema. Chest tube site is clean and dry. LUNGS: Equal air entry with scattered rhonchi to the right lung. Diminished.. CVS: S1 and S2 normal with no audible murmur, regular rhythm. ABDOMEN: No hepatosplenomegaly, normal bowel sounds, no guarding or rigidity. SPINE: No scoliosis or deformity SKIN: Subcutaneous emphysema. CENTRAL NERVOUS SYSTEM: No focal deficits, tone is normal in all 4 extremities. EXTREMITIES: There is no peripheral edema. No clubbing, no cyanosis. Peripheral pulses are intact. - Labs CBC & Chem 7: 11/19/17 05:28 18 05:28 Assessment and Plan Assessment: Impression: Status post right middle lobectomy, performed via robotic-assisted thoracoscopic approach, postop day #3. Pathology is positive for pulmonary adenocarcinoma. Two hilar lymph nodes were negative for metastases. History of seizure disorder History of mild COPD History of benign essential hypertension History of GERD Plan: The patient was seen and evaluated by Dr. Bravo. Her chest x-ray was reviewed. She is cleared for discharge from the pulmonary standpoint. She'll follow-up with Dr. Jones in our office in 1 week's time. She is however encouraged to call sooner with any questions or concerns. I, the cosigning physician, performed a history & physical examination of the patient. Lungs sounds with coarse rhonchi in the right lung. Diminished. Maintaining good O2 saturations in the 90s on room air. I discussed the assessment and plan of care with my nurse practitioner, Laney Post. I attest to the above note as dictated by her.
--- NOTE | 2017-11-21 12:54 | P.DS ---
Providers Date of admission: 11/15/17 05:55 Expected date of discharge: 11/21/17 Attending physician: Jemal John Consults: 11/15/17 10:50 Consult Physician Routine Consulting Provider: Abdirashid Hagen Consult Reason/Comments: Medical management Do you want consulting provider notified?: Yes 11/15/17 11:00 Consult Physician Routine Consulting Provider: Precious Jones Reason/Comments: pulmonary management Do you want consulting provider notified?: Yes Primary care physician: Abdirashid Hagen - Discharge Diagnosis(es) (1) COPD (chronic obstructive pulmonary disease) Current Visit: Yes Status: Chronic (2) GERD (gastroesophageal reflux disease) Current Visit: Yes Status: Chronic (3) Lung cancer Current Visit: Yes Status: Chronic (4) Tobacco dependence Current Visit: Yes Status: Chronic (5) History of seizure Current Visit: No Status: Chronic Hospital Course: FINAL DIAGNOSIS: 1. Adenocarcinoma of the lung 2. Hypertension 3. Mild COPD 4. History of seizure disorder 5. Current tobacco dependence PRINCIPAL PROCEDURE: 1. Elective right middle lobectomy performed via robotic assisted thoracoscopic approach HISTORY OF PRESENT ILLNESS: This is a 57-year-old female patient who is followed by Dr. Hagen on an outpatient basis. Patient has a medical history significant for hypertension, mild COPD, history of seizure disorder and current tobacco use. On 09/07/2017 the patient presented to the emergency department here at [facility] after experiencing seizure which lasted about 4 minutes or so. During that hospitalization a chest x-ray was completed which showed an incidental finding of a rounded masslike density to her right middle lobe. For further evaluation the patient underwent a computed tomography scan of her chest on 09/14/2017 which demonstrated a 2.8 cm mass to her middle lobe suspicious for malignancy. The patient was subsequently evaluated by Dr. Irwin Aden who scheduled the patient for a CT PET scan of her chest. On 09/23/2017 the patient underwent a PET computed tomography scan which demonstrated a right upper lobe mass lung nodule measuring approximately 3 cm and was associated with metabolic uptake and an SUV of 18. It also demonstrated in the subpleural location at the right lung base medially there is a small soft tissue density measuring 512 mm which was associated with hypermetabolic uptake and an SUV of 6. For further evaluation she was seen by Dr. Jemal John from cardiothoracic surgery who recommended and discussed the risks and benefits of a right middle lobectomy via robotic assisted thoracoscopic approach. HOSPITAL COURSE: The patient was admitted to the hospital and after obtaining consent she was taken to the operating room where Dr. Jemal John performed an elective right middle lobectomy via robotic assisted thoracoscopic approach. Upon completion of the surgery the patient was extubated and transferred to the recovery unit where she was monitored until stable. Subsequently she was transferred to the [address] [place] [address] for further hemodynamic monitoring. She was weaned off her oxygen and maintained good oxygen saturations of 97-98% on room air, demonstrated good use on her incentive spirometry and was ambulating in the hallway with minimal assistance. Postoperatively her chest tube did demonstrate a small intermittent air leak which was monitored closely. Her chest tube was discontinued after the air leak resolved and a follow-up chest x-ray was completed which did demonstrate a less than 10% right apical pneumothorax which will be monitored closely on an outpatient basis. She was ready to be discharged home on postoperative day #6. She has received written and verbal instructions regarding her medications, activity restrictions, signs and symptoms requiring physician notification and follow-up appointments. COMPLICATIONS: There were no postoperative, complications. CONSULTATIONS: 1. Dr. Hagen for medical management 2. Dr. Jones for pulmonary management DISCHARGE INSTRUCTIONS: 1. No driving for 2 weeks, or until physician gives their ok. 2. The patient should sleep in their own bed, no medical bed needed. 3. Continue pain control per as needed orders. 4. Continue with incentive spirometry every hour while awake 2 weeks. 5. Shower daily using liquid antibacterial soap and a separate white washcloth for each individual incision. 6. No lifting, pushing, or pulling more than 10 pounds for 2 weeks. 7. The patient is expected to continue the prescribed walking program. 8. Routine sternal incision care, no ointments, lotions or powders on the incisions. 9. Please notify surgeon/nurse practitioner for temperature greater than 101F or purulent drainage from incisions 10. The patient will follow-up with a chest x-ray next , November 29 prior to her follow-up appointment with Dr. John. Plan - Discharge Summary Discharge Rx Participant: No New Discharge Prescriptions: No Action Famotidine [Pepcid] 40 mg PO DAILY PRN PRN Reason: gerd clonazePAM [KlonoPIN] 2 mg PO QAM Phenytoin Sodium Extended [Dilantin] 200 mg PO BID PHENobarbital [Luminal] 32.4 mg PO QAM diphenhydrAMINE [Benadryl] 25 - 50 mg PO HS PRN PRN Reason: itching Loratadine [Claritin] 10 mg PO DAILY PRN PRN Reason: allergies Albuterol Inhaler [Ventolin Hfa Inhaler] 1 - 2 puff INHALATION RT-QID PRN PRN Reason: Shortness Of Breath PHENobarbital 64.8 mg PO HS Acetaminophen Tab [Tylenol] 650 mg PO Q6H Cholecalciferol [Vitamin D3] 2,000 unit PO DAILY Albuterol Nebulized [Ventolin Nebulized] 2.5 mg INHALATION RT-QID nebu Ipratropium-Albuterol Nebulize [Duoneb 0.5 mg-3 mg/3 ml Soln] 3 ml INHALATION RT-Q4H PRN ampul.neb PRN Reason: shortness of breath Cephalexin [Keflex] 500 mg PO QID #30 cap Metoprolol Tartrate [Metoprolol Tartrate] 12.5 mg PO BID Discharge Medication List Famotidine [Pepcid] 40 mg PO DAILY PRN 03/16/14 [History] PHENobarbital [Luminal] 32.4 mg PO QAM 03/16/14 [History] Phenytoin Sodium Extended [Dilantin] 200 mg PO BID 03/16/14 [History] clonazePAM [KlonoPIN] 2 mg PO QAM 03/16/14 [History] Albuterol Inhaler [Ventolin Hfa Inhaler] 1 - 2 puff INHALATION RT-QID PRN [History] Loratadine [Claritin] 10 mg PO DAILY PRN 09/07/17 [History] PHENobarbital 64.8 mg PO HS 09/07/17 [History] diphenhydrAMINE [Benadryl] 25 - 50 mg PO HS PRN 09/07/17 [History] Acetaminophen Tab [Tylenol] 650 mg PO Q6H 10/16/17 [History] Cholecalciferol [Vitamin D3] 2,000 unit PO DAILY 11/04/17 [History] Albuterol Nebulized [Ventolin Nebulized] 2.5 mg INHALATION RT-QID nebu [Rx] Cephalexin [Keflex] 500 mg PO QID #30 cap 11/07/17 [Rx] Ipratropium-Albuterol Nebulize [Duoneb 0.5 mg-3 mg/3 ml Soln] 3 ml INHALATION RT -Q4H PRN ampul.neb 11/07/17 [Rx] Metoprolol Tartrate [Metoprolol Tartrate] 12.5 mg PO BID 11/15/17 [History] Follow up Appointment(s)/Referral(s): Precious Jones MD [STAFF PHYSICIAN] - 11/30/17 10:15 am Abdirashid Hagen MD [Primary Care Provider] - 11/26/17 12:20 pm Jemal John MD [STAFF PHYSICIAN] - 11/29/17 2:00 pm Patient Instructions/Handouts: Lung Lobectomy (DC) Discharge Disposition: HOME SELF-CARE
--- NOTE | 2017-11-21 16:43 | PN ---
PROGRESS NOTE DATE OF SERVICE: 11/21/17 CHIEF COMPLAINT: CA of the right lung. HISTORY OF PRESENT ILLNESS: Lady is doing well. Chest tube was removed. She is having quite a bit of discomfort, however. PHYSICAL EXAM: Vital signs are normal. Breath sounds are heard on both sides. Cardiac exam is normal. Abdomen is soft, nontender. IMPRESSION: 1. Status post right middle lobectomy for carcinoma of the lung. 2. Chronic obstructive pulmonary disease. 3. Seizure disorder. PLAN: Wait for further recommendations from the thoracic surgery. She might be going home today. MMODL / IJN: [id number] /
== END 2017-11-21 14:23 | disposition home or self-care (01) | DRG 164 ==
LOC: 2ORMAIN 05:55 → 6SEL 11:01
PROVIDERS: ADMIT Thoracic Surgery (Cardiothoracic Vascular Surgery); ATTEND Thoracic Surgery (Cardiothoracic Vascular Surgery)
PROC: 8E0W4CZ Robotic Assisted Procedure of Trunk Region, Percutaneous Endoscopic Approach (ICD-10-PCS; 2017-11-15)
PROC: 0BTD4ZZ Resection of Right Middle Lung Lobe, Percutaneous Endoscopic Approach (ICD-10-PCS; principal; 2017-11-15 07:30)
DX: C34.2 Malignant neoplasm of middle lobe, bronchus or lung (principal); J94.2 Hemothorax; J98.2 Interstitial emphysema; E66.01 Morbid (severe) obesity due to excess calories; J93.82 Other air leak; J98.11 Atelectasis; J93.9 Pneumothorax, unspecified; Z68.41 Body mass index [BMI] 40.0-44.9, adult; F17.200 Nicotine dependence, unspecified, uncomplicated; G40.909 Epilepsy, unspecified, not intractable, without status epilepticus; H40.9 Unspecified glaucoma; I10 Essential (primary) hypertension; J44.9 Chronic obstructive pulmonary disease, unspecified; K21.9 Gastro-esophageal reflux disease without esophagitis; Z79.899 Other long term (current) drug therapy; Z88.5 Allergy status to narcotic agent; Z88.0 Allergy status to penicillin; Z88.8 Allergy status to other drugs, medicaments and biological substances; Z80.1 Family history of malignant neoplasm of trachea, bronchus and lung; Z82.49 Family history of ischemic heart disease and other diseases of the circulatory system
CPT/HCPCS: 36415; 71045; 71046; 80048; 80053; 84132; 85025; 86850; 86900; 86901; 88309; 88313; 88331; 88341; 88342; 94640; 94760

== ENCOUNTER → 2017-11-29 | Outpatient (CLI) | payer OTHER ==
--- NOTE | 2017-11-29 13:29 | XR ---
EXAMINATION TYPE: XR chest 2V DATE OF EXAM: 11/29/2017 COMPARISON: November 21, 2018 HISTORY: Shortness of breath TECHNIQUE: Frontal and lateral views of the chest are obtained. FINDINGS: Previously noted right-sided pneumothorax has resolved. Subcutaneous emphysema persists although is i mproved. Persistent patchy density right medial lung base may reflect underlying pneumonia and/or atelectasis. The remainder of the lungs are clear. Mediastinal structures are stable and grossly unremarkable. No evidence for hilar prominence. Degenerative changes dorsal spine. IMPRESSION: 1. Resolution of right-sided pneumothorax. 2. Persistent but improving subcutaneous emphysema. 3. Persistent patchy density right medial lung base may reflect underlying pneumonia and/or atelectas is.
== END | disposition home or self-care (01) ==
LOC: RADXRMAIN 13:07
PROVIDERS: ATTEND Nurse Practitioner Family
DX: Z01.818 Encounter for other preprocedural examination (principal); J93.9 Pneumothorax, unspecified; J98.2 Interstitial emphysema
CPT/HCPCS: 71046

== ENCOUNTER → 2017-12-27 | Outpatient (CLI) | payer OTHER ==
--- NOTE | 2017-12-27 22:47 | CT ---
EXAMINATION TYPE: CT chest w con DATE OF EXAM: 12/27/2017 COMPARISON: 09/14/2017 HISTORY: 57-year-old female Right side rib pain. History of partial right lobectomy on 11/15/2017 due t o lung cancer. TECHNIQUE: Contiguous axial scanning of the chest after the administration of 100 mL of Omnipaque 300 . Coronal/sagittal reconstructions performed. CT DLP: 835mGycm. Automatic exposure control utilized for a dose reduction. FINDINGS: The heart is upper limits of normal in size with trace anterior pericardial thickening. Ascending aorta borderline ectatic at 3.5 cm. Conventional arch vessel branching anatomy. Upper desce nding thoracic aorta ectatic and 3.0 cm. Nonenlarged and borderline to mildly enlarged mediastinal lymph nodes measuring up to 1.7 cm right tr acheobronchial angle region a 9 mm AP window are unchanged. Borderline sized caliber to the main right and left pulmonary arteries are 2.5 cm each suggesting und erlying pulmonary arterial hypertension. There appears to be interval right middle lobectomy with surgical material and some pleural parenchym al thickening extending along the right mid lung in this region, referred to axial images 25 through 28. This thickening is irregular in some portions and can be reassessed at follow-up. 4 mm right mid lung pulmonary nodule posteriorly at image 25. Some nonspecific plaque-like pleural th ickening posterior right upper lobe measuring 8 mm, axial image 18. No consolidation or pleural effusion. There are nonhealed fractures of the right lateral or posterolateral fifth, sixth, seventh, eighth ri bs with varying degrees of callus possibly related to thoracotomy change but should be correlated cli nically. There is a focal fluid collection overlying the thoracic cage at this level just deep to the inferior scapula and deep to the serratus anterior musculature measuring 6.6 cm AP by 2.1 cm thick by 7.4 cm craniocaudal, axial image 23 and sagittal image 34. A 1.7 cm left adrenal gland nodule is stable from 2013. There are cholecystectomy clips. 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 Hypodense lesion in posterior right hepatic dome is unchanged compatible with a benign etiology. Bones: The rib abnormalities mentioned above. Otherwise, no osseous destructive process. IMPRESSION: 1. Interval right middle lobectomy. There is surgical material here and some irregular pleural parenc hymal thickening which can be reassessed at 3-6 months. Postsurgical change and scarring is favored. 2. A 4 mm right mid lung pulmonary nodule. Additional plaque-like pleural thickening measuring 8 mm p osterior right upper lobe. Both of these findings can also be reassessed at the follow-up. 3. Unhealed fractures of the right lateral or posterolateral fifth, sixth, seventh, and eighth ribs m ay relate to thoracotomy change on a posttraumatic etiology. 4. There is a fluid collection overlying the thoracic cage at these levels located just deep to the s erratus anterior musculature measuring 7.4 x 6.6 cm. Postoperative seroma, chronic hematoma, and an i nfective collection are all in the differential. Clinical correlation recommended. 5. Some borderline and mildly enlarged mediastinal lymph nodes are unchanged and were noted to be non -hypermetabolic on the patient's PET/CT compatible with a benign etiology. Benign left adrenal adenom a.
== END | disposition home or self-care (01) ==
LOC: RADCTMAIN 15:49
PROVIDERS: ATTEND Family Medicine
DX: J92.9 Pleural plaque without asbestos (principal); S22.41XA Multiple fractures of ribs, right side, initial encounter for closed fracture; R91.1 Solitary pulmonary nodule; R59.0 Localized enlarged lymph nodes; Z98.890 Other specified postprocedural states; Z88.0 Allergy status to penicillin; Z88.5 Allergy status to narcotic agent
CPT/HCPCS: 71260; Q9967

== ENCOUNTER → 2018-01-09 | Outpatient (CLI) | payer OTHER ==
--- NOTE | 2018-01-09 14:25 | NM ---
EXAMINATION TYPE: NM bone scan whole body DATE OF EXAM: 01/09/2018 COMPARISON: Correlation CT chest 12/27/2017 HISTORY: 57-year-old female with right rib pain under the breast radiating to the back. Patient repor ts presence of right rib fracture that occurred after surgery (partial right lobectomy one month ago) . Technique: Delayed whole-body scanning was performed following the injection of 24.5 mCi Tc 99m MDP. Images acquired 3 hours post injection. FINDINGS: There are 3 consecutive levels of focal increased tracer activity involving the mid lateral right rib s. One of these sites is a segmental fracture. Some degenerative uptake noted at the ankles and hindfeet. No suspicious accumulation of radiotracer to suggest osseous metastatic disease. IMPRESSION: Linear distribution of focal tracer activity involving 3 consecutive levels of the mid lateral right ribs. Findings compatible with rib fractures. One of these levels represents a segmental fracture. No other suspicious tracer accumulation seen.
== END | disposition home or self-care (01) ==
LOC: RADNMMAIN 10:04
PROVIDERS: ATTEND Family Medicine
DX: C34.90 Malignant neoplasm of unspecified part of unspecified bronchus or lung (principal); R07.81 Pleurodynia; Z88.5 Allergy status to narcotic agent; Z88.0 Allergy status to penicillin
CPT/HCPCS: 78306; A9503

== ENCOUNTER → 2018-01-22 | Outpatient (CLI) | payer OTHER ==
[2018-01-22 11:43] VITALS: BMI 42.0
== END | disposition home or self-care (01) ==
LOC: MNTWWP 11:18
PROVIDERS: ATTEND Internal Medicine Hematology & Oncology
DX: C34.2 Malignant neoplasm of middle lobe, bronchus or lung (principal); Z11.3 Encounter for screening for infections with a predominantly sexual mode of transmission
CPT/HCPCS: 97802

== ENCOUNTER → 2018-03-13 | Outpatient (CLI) | payer OTHER ==
--- NOTE | 2018-03-13 08:08 | CT ---
EXAMINATION TYPE: CT abdomen w con DATE OF EXAM: 03/13/2018 COMPARISON: 10/17/2012 HISTORY: Right upper quadrant abdominal pain CT DLP: 1404 mGycm Automated exposure control for dose reduction was used. TECHNIQUE: Helical acquisition of images was performed from the lung bases through the top of iliac crest to include entire abdomen. CONTRAST: Performed with Oral Contrast and with IV Contrast, patient injected with 100 ml mL of Isovue 300. FINDINGS: LUNG BASES: Healed right-sided rib fractures are noted. LIVER/GB: Cholecystectomy clips are in place. Simple cyst is noted that the dome of the liver. PANCREAS: No significant abnormality is seen. SPLEEN: No significant abnormality is seen. ADRENALS: No significant abnormality is seen. KIDNEYS: No significant abnormality is seen. BOWEL: No significant abnormality is seen. LYMPH NODES: No significant abnormality is seen. OSSEOUS STRUCTURES: No significant abnormality is seen. FREE AIR: No free air is visualized. OTHER: IMPRESSION: 1. No significant abnormality to account for the patient's symptoms.
== END | disposition home or self-care (01) ==
LOC: RADCTMAIN 07:03
PROVIDERS: ATTEND Family Medicine
DX: R10.11 Right upper quadrant pain (principal); Z88.0 Allergy status to penicillin; Z88.5 Allergy status to narcotic agent
CPT/HCPCS: 74160; Q9967

== ENCOUNTER → 2018-03-15 | Outpatient (CLI) | payer OTHER ==
--- NOTE | 2018-03-15 10:28 | MM ---
Reason for exam: follow-up at short interval from prior study. Last mammogram was performed 6 months ago. History: Patient is postmenopausal and has history of other cancer at age 56. Family history of breast cancer in maternal grandmother. Physical Findings: Nurse did not find any significant physical abnormalities on exam. MG Diagnostic Mammo RT w CAD CC and MLO view(s) were taken of the right breast. Prior study comparison: August 31, 2017, bilateral MG screening mammo w CAD. June 05, 2016, bilateral MG screening mammo w CAD. There are scattered fibroglandular densities. Finding: There are typically benign round calcifications in the right breast. There is no discrete abnormality. These results were verbally communicated with the patient and result sheet given to the patient on 03/15/18. ASSESSMENT: Benign, BI-RAD 2 RECOMMENDATION: Return to routine screening mammogram schedule for both breasts. Back on schedule.
== END | disposition home or self-care (01) ==
LOC: RADMAMWWP 08:56
PROVIDERS: ATTEND Family Medicine
DX: R92.8 Other abnormal and inconclusive findings on diagnostic imaging of breast (principal)
CPT/HCPCS: 77065

== ENCOUNTER → 2018-04-24 | Outpatient (CLI) | payer OTHER ==
[2018-04-24 14:18] LABS: Phenytoin (Dilantin) 11.9 ug/mL
== END | disposition home or self-care (01) ==
LOC: LABWHC1 08:58
PROVIDERS: ATTEND Psychiatry & Neurology Neurology
DX: G40.209 Localization-related (focal) (partial) symptomatic epilepsy and epileptic syndromes with complex partial seizures, not intractable, without status epilepticus (principal)
CPT/HCPCS: 36415; 80184; 80185; 84450; 84460

== ENCOUNTER → 2018-06-20 | Outpatient (CLI) | payer OTHER ==
--- NOTE | 2018-06-20 12:39 | CT ---
EXAMINATION TYPE: CT chest w con DATE OF EXAM: 06/20/2018 COMPARISON: 12/27/2017 HISTORY: 58-year-old female follow-up lung cancer TECHNIQUE: Contiguous axial scanning of the chest after the administration of 100mL mL of Isovue 300. Coronal/sagittal reconstructions performed. CT DLP: 690mGycm. Automatic exposure control utilized for a dose reduction. FINDINGS: Heart upper limits of normal in size without pericardial effusion. There is currently measured at normal caliber. Minimal atherosclerotic arch calcifications. Conventio nal arch vessel branching anatomy. Right paratracheal lymph node now measures 1.2 cm versus 8 mm, previously. Right tracheobronchial ang le lymph node measures 1.7 cm, unchanged. AP window lymph node measures 9 mm, unchanged. Prevascular space anterior mediastinal lymph nodes measure up to 8 mm, unchanged. Nonenlarged subcarinal lymph no [place] are unchanged. Right sided thoracotomy change. The right posterolateral seventh and eighth rib fractures show delaye d union. Postsurgical changes of right middle lobectomy. Residual strandy scarring here and surgical material. The previously seen irregular soft tissue thickening has resolved. Strandy atelectasis in the left m idlung. No consolidation or pleural effusion. Stable 1.7 cm left adrenal nodule. Patient is status post cholecystectomy. Stable 1.2 cm hypodensity right hepatic dome too small fractures CT characterization, likely cyst. Bones: Right posterolateral rib fractures with delayed union of the seventh and eighth ribs. IMPRESSION: 1. Status post right middle lobectomy. Previous irregular opacity at the surgical site has improved. No findings of local recurrence. 2. Borderline and mildly enlarged mediastinal lymph nodes redemonstrated. All of these are stable exc ept for a single right paratracheal lymph node which now measures 1.2 cm versus 8 mm, previously. An additional short interval follow-up can be performed. 3. Delayed union of the posterolateral right seventh and eighth ribs at the site of either prior frac tures or thoracotomy change. 4. Stable 1.7 cm left adrenal nodule, likely adrenal adenoma.
== END | disposition home or self-care (01) ==
LOC: RADCTMAIN 09:06
PROVIDERS: ATTEND Internal Medicine Hematology & Oncology
DX: C34.2 Malignant neoplasm of middle lobe, bronchus or lung (principal); R59.0 Localized enlarged lymph nodes; E27.8 Other specified disorders of adrenal gland; Z90.2 Acquired absence of lung [part of]; Z88.0 Allergy status to penicillin; Z88.5 Allergy status to narcotic agent; Z88.8 Allergy status to other drugs, medicaments and biological substances
CPT/HCPCS: 71260

== ENCOUNTER 2018-10-10 17:24 | Emergency (ER) | payer OTHER ==
[2018-10-10] MEDS ORDERED: LORazepam 2 MG/ML INJ IV STA (18:53)
[2018-10-10 19:29] LABS: Basophils # (A) 0.1 k/uL (0-0.2); Basophils % (A) 1 %; Eosinophils # (A) 0.1 k/uL (0-0.7); Eosinophils % (A) 1 %; HCT 40.3 % (34.0-46.0); Lymphocytes # (A) 2.4 k/uL (1.0-4.8); Lymphocytes % (A) 24 %; MCH 30.6 pg (25.0-35.0); MCHC 32.3 g/dL (31.0-37.0); MCV 94.7 fL (80.0-100.0); Mean Platelet Volume 6.4; Monocytes # (A) 0.4 k/uL (0-1.0); Monocytes % (A) 4 %; Neutrophils % (A) 69 %; Platelet Count 288 k/uL (150-450); RBC 4.25 m/uL (3.80-5.40); RDW 13.9 % (11.5-15.5); WBC 10.2 k/uL (3.8-10.6)
[2018-10-10 19:39] LABS: ALT 16 U/L (9-52); AST 30 U/L (14-36); Albumin 4.2 g/dL (3.5-5.0); Alkaline Phosphatase 117 U/L (38-126); Anion Gap 14 mmol/L; Blood Urea Nitrogen 15 mg/dL (7-17); Carbon Dioxide 20 mmol/L (22-30); Chloride 108 mmol/L (98-107); Glucose 112 mg/dL (74-99); Potassium 3.9 mmol/L (3.5-5.1); Sodium 142 mmol/L (137-145); Total Bilirubin 0.3 mg/dL (0.2-1.3); Total Protein 8.7 g/dL (6.3-8.2)
[2018-10-10] MEDS ORDERED: SODIUM CHLORIDE 0.9% 1,000 ML IV STA (20:32)
--- NOTE | 2018-10-10 20:57 | ED ---
General Adult HPI - General Chief complaint: Seizure Stated complaint: SEIZURE Source: patient, RN notes reviewed, old records reviewed Mode of arrival: wheelchair Limitations: no limitations - History of Present Illness Initial comments: 58-year-old female patient past history including seizure disorder, lung cancer , status post right lobectomy as ED after having breakthrough seizures. Patient has reportedly been seizure-free since June, presents to ED after sustaining 3 seizures at home. Patient sustained one seizure in ED that was witnessed. Patient has additional complaints of right rib pain since lobectomy in November, abdominal pain as percent and going on for 5 months as well. Patient additionally denies any chest pain, shortness of breath, nausea vomiting diarrhea. Patient denies any significant fall, head trauma, neck trauma all sustaining the seizures earlier today. Patient one seizure where she fell the ground which was walking but was witnessed no significant trauma to head or neck noted. Other 2 seizures were in bed. Witnessed seizure in ED was in bed. Patient does complain of headache, generalized, no photophobia. Patient states that headache is similar to headaches she has had in the past after seizures. Denies worst headache of life, thunderclap. Patient additionally complains of abdominal pain approximately 5 months. Systemic: Pt denies fatigue, myalgia, fever/chills, rash. Pt denies weakness, night sweats, weight loss. Neuro: Pt denies headache, visual disturbances, syncope or pre-syncope. HEENT: Pt denies ocular discharge or irritation, otalgia, rhinorrhea, pharyngitis or notable lymphadenopathy. Cardiopulmonary: Pt denies chest pain, SOB, heart palpitations, dyspnea on exertion. Abdominal/GI: Pt denies abdominal pain, n/v/d. : Pt denies dysuria, burning w/ urination, frequency/urgency. Denies new onset urinary or bowel incontinence. MSK: Pt denies myalgia, loss of strength or function in extremities. Neuro: Pt denies new onset weakness, paresthesias. - Related Data Home Medications Medication Instructions Recorded Confirmed PHENobarbital [Luminal] 32.4 mg PO QAM 03/16/14 10/10/18 Phenytoin Sodium Extended 200 mg PO BID 03/16/14 10/10/18 [Dilantin] Albuterol Inhaler [Ventolin Hfa 1 - 2 puff INHALATION RT-QID PRN 09/07/17 Inhaler] PHENobarbital 64.8 mg PO HS 09/07/17 10/10/18 Metoprolol Tartrate 12.5 mg PO BID 11/15/17 10/10/18 Cyclobenzaprine [Flexeril] 10 mg PO TID PRN 10/10/18 10/10/18 Ergocalciferol (Vitamin D2) 50,000 unit PO Q28D 10/10/18 10/10/18 [Vitamin D2] HYDROcodone/APAP 5-325MG [[place] 1 tab PO DAILY PRN 10/10/18 10/10/18 5-325] Ipratropium-Albuterol Nebulize 3 ml INHALATION RT-Q4H PRN 10/10/18 10/10/18 [Duoneb 0.5 mg-3 mg/3 ml Soln] Previous Rx's Medication Instructions Recorded Amoxicillin/Potassium Clav 1 each PO Q12HR #20 tab 10/10/18 [Augmentin 875-125 Tablet] Azithromycin [Zithromax Z-pack] 0 mg PO DIRECTED #6 tab 10/10/18 Allergies Allergy/AdvReac Type Severity Reaction Status Date / Time Penicillins Allergy Rash/Hives Verified 10/10/18 19:40 codeine AdvReac Abdominal Verified 10/10/18 19:40 Pain ranitidine HCl [From Zantac] AdvReac interacts Verified 10/10/18 19:40 with dilantin Review of Systems ROS Statement: Those systems with pertinent positive or pertinent negative responses have been documented in the HPI. ROS Other: All systems not noted in ROS Statement are negative. Past Medical History Past Medical History: Seizure Disorder Additional Past Medical History / Comment(s): H. pylori; UTI; Whipple's Disease History of Any Multi-Drug Resistant Organisms: None Reported Past Surgical History: Cholecystectomy Additional Past Surgical History / Comment(s): cataract, lymphnodectomy Past Psychological History: No Psychological Hx Reported Smoking Status: Former smoker Past Alcohol Use History: None Reported Past Drug Use History: None Reported - Past Family History Father Family Medical History: Cancer Additional Family Medical History / Comment(s): LUNG Mother Family Medical History: Cancer, Coronary Artery Disease (CAD), Diabetes Mellitus Additional Family Medical History / Comment(s): LUNG CA General Exam - General Exam Comments Initial Comments: Constitutional: NAD, AOX3, Pt has pleasant affect. Witnessed seizure in ED approximately 15 seconds, tonic-clonic. HEENT: NC/AT, trachea midline, neck supple, no lymphadenopathy. Posterior pharynx non erythematous, without exudates. External ears appear normal, without discharge. Mucous membranes moist. Eyes PERRLA, EOM intact. There is no scleral icterus. No pallor noted. Cardiopulmonary: RRR, no murmurs, rubs or gallops, no JVD noted. Lungs CTAB in anterior and posterior gonzales. No peripheral edema. Abdominal exam: Abdomen soft and non-distended. Abdomen diffusely tender to palpation, no localized areas of tenderness. Drummond's negative, no tenderness at McBurney's point. Bowel sounds active in LLQ. No hepatosplenomegaly. No ecchymosis no guarding or rigidity. Neuro: CN II-XII intact. No nuchal rigidity. MSK: No posterior calf tenderness bilaterally, homans sign negative bilaterally. Posterior tibialis and radial pulse +2 bilaterally. Sensation intact in upper and lower extremities. Full active ROM in upper and lower extremities, 5/5 stregnth. Limitations: no limitations Course Vital Signs 10/10/18 10/10/18 10/10/18 18:05 19:47 19:50 Temperature 98.9 F Pulse Rate 90 88 Respiratory 18 29 H 18 Rate Blood Pressure 106/69 126/68 O2 Sat by Pulse 96 90 L Oximetry 10/10/18 10/10/18 10/10/18 20:00 20:30 21:00 Temperature Pulse Rate 90 82 Respiratory 17 Rate Blood Pressure 126/68 126/66 122/80 O2 Sat by Pulse 93 L 93 L Oximetry 10/10/18 10/10/18 21:29 23:43 Temperature 100.0 F H Pulse Rate 92 90 Respiratory 16 20 Rate Blood Pressure 116/70 O2 Sat by Pulse 94 L 96 Oximetry Medical Decision Making - Medical Decision Making 58-year-old female patient past history including seizure disorder, lung cancer , status post right lobectomy as ED after having breakthrough seizures. Patient has reportedly been seizure-free since June, presents to ED after sustaining 3 seizures at home. Patient sustained one seizure in ED that was witnessed. Patient has additional complaints of right rib pain since lobectomy in November, abdominal pain as percent and going on for 5 months as well. Patient additionally denies any chest pain, shortness of breath, nausea vomiting diarrhea. Patient denies any significant fall, head trauma, neck trauma all sustaining the seizures earlier today. Patient one seizure where she fell the ground which was walking but was witnessed no significant trauma to head or neck noted. Other 2 seizures were in bed. Witnessed seizure in ED was in bed. Patient does complain of headache, generalized, no photophobia. Patient states that headache is similar to headaches she has had in the past after seizures. Denies worst headache of life, thunderclap. Physical exam displayed diffuse abdominal tenderness, no focal tenderness, no guarding or rigidity, no ecchymoses. Neuro exam within normal limits. lab investigations revealed non-impressive CBC CMP. UA was not impressive. Phenytoin level 7.1, subtherapeutic. Phenytoin dosed in ED, 500mg. Discussed dosing with Kyree Fuentes. Ekg displayed NSR, not concerning for acute ischemia. Noncontrast CT of head and neck no display any acute process. CT chest abdomen pelvis displayed interstitial infiltrates and atelectasis in the mid and lower lung gonzales. New small right pleural effusion. Findings were explained to patient. Patient verbalizes understanding. Patient to be treated for pneumonia. Patient given 1 g Rocephin ED. Patient to be discharged with azithromycin and Augmentin. Patient to follow up with primary care physician tomorrow. Patient follow up with oncologist tomorrow. Patient to return to ED if new signs symptoms develop or if symptoms worsen anyway. Case discussed in depth with Dr. Segura. No driving for pt for 6 months. Pt states that her PCP gives her amoxicillin without issue. - Lab Data Result diagrams: 10/10/18 19:14 10/10/18 19:14 Lab Results 10/10/18 10/10/18 10/10/18 Range/Units 19:14 19:14 21:10 WBC 10.2 (3.8-10.6) k/uL RBC 4.25 (3.80-5.40) m/uL Hgb 13.0 (11.4-16.0) gm/dL Hct 40.3 (34.0-46.0) % MCV 94.7 (80.0-100.0) fL MCH 30.6 (25.0-35.0) pg MCHC 32.3 (31.0-37.0) g/dL RDW 13.9 (11.5-15.5) % Plt Count 288 (150-450) k/uL Neutrophils % 69 % Lymphocytes % 24 % Monocytes % 4 % Eosinophils % 1 % Basophils % 1 % Neutrophils # 7.0 (1.3-7.7) k/uL Lymphocytes # 2.4 (1.0-4.8) k/uL Monocytes # 0.4 (0-1.0) k/uL Eosinophils # 0.1 (0-0.7) k/uL Basophils # 0.1 (0-0.2) k/uL Sodium 142 (137-145) mmol/L Potassium 3.9 (3.5-5.1) mmol/L Chloride 108 H (98-107) mmol/L Carbon Dioxide 20 L (22-30) mmol/L Anion Gap 14 mmol/L BUN 15 (7-17) mg/dL Creatinine 0.57 (0.52-1.04) mg/dL Est GFR (CKD-EPI)AfAm >90 (>60 ml/min/1.73 sqM) Est GFR (CKD-EPI)NonAf >90 (>60 ml/min/1.73 sqM) Glucose 112 H (74-99) mg/dL Calcium 9.0 (8.4-10.2) mg/dL Total Bilirubin 0.3 (0.2-1.3) mg/dL AST 30 (14-36) U/L ALT 16 (9-52) U/L Alkaline Phosphatase 117 (38-126) U/L Total Protein 8.7 H (6.3-8.2) g/dL Albumin 4.2 (3.5-5.0) g/dL Urine Color Urine Appearance (Clear) Urine pH (5.0-8.0) Ur Specific [place] (1.001-1.035) Urine Protein (Negative) Urine Glucose (UA) (Negative) Urine Ketones (Negative) Urine Blood (Negative) Urine Nitrite (Negative) Urine Bilirubin (Negative) Urine Urobilinogen (<2.0) mg/dL Ur Leukocyte Esterase (Negative) Urine RBC (0-5) /hpf Urine WBC (0-5) /hpf Ur Squamous Epith Cells (0-4) /hpf Urine Bacteria (None) /hpf Urine Mucus (None) /hpf Urine HCG, Qual (Not Detectd) Phenytoin 7.1 ug/mL 10/10/18 10/10/18 Range/Units 22:30 22:30 WBC (3.8-10.6) k/uL RBC (3.80-5.40) m/uL Hgb (11.4-16.0) gm/dL Hct (34.0-46.0) % MCV (80.0-100.0) fL MCH (25.0-35.0) pg MCHC (31.0-37.0) g/dL RDW (11.5-15.5) % Plt Count (150-450) k/uL Neutrophils % % Lymphocytes % % Monocytes % % Eosinophils % % Basophils % % Neutrophils # (1.3-7.7) k/uL Lymphocytes # (1.0-4.8) k/uL Monocytes # (0-1.0) k/uL Eosinophils # (0-0.7) k/uL Basophils # (0-0.2) k/uL Sodium (137-145) mmol/L Potassium (3.5-5.1) mmol/L Chloride (98-107) mmol/L Carbon Dioxide (22-30) mmol/L Anion Gap mmol/L BUN (7-17) mg/dL Creatinine (0.52-1.04) mg/dL Est GFR (CKD-EPI)AfAm (>60 ml/min/1.73 sqM) Est GFR (CKD-EPI)NonAf (>60 ml/min/1.73 sqM) Glucose (74-99) mg/dL Calcium (8.4-10.2) mg/dL Total Bilirubin (0.2-1.3) mg/dL AST (14-36) U/L ALT (9-52) U/L Alkaline Phosphatase (38-126) U/L Total Protein (6.3-8.2) g/dL Albumin (3.5-5.0) g/dL Urine Color Yellow Urine Appearance Clear (Clear) Urine pH 8.0 (5.0-8.0) Ur Specific [place] >1.050 H (1.001-1.035) Urine Protein Trace H (Negative) Urine Glucose (UA) Negative (Negative) Urine Ketones Negative (Negative) Urine Blood Small H (Negative) Urine Nitrite Negative (Negative) Urine Bilirubin Negative (Negative) Urine Urobilinogen <2.0 (<2.0) mg/dL Ur Leukocyte Esterase Small H (Negative) Urine RBC 6 H (0-5) /hpf Urine WBC 14 H (0-5) /hpf Ur Squamous Epith Cells 7 H (0-4) /hpf Urine Bacteria Rare H (None) /hpf Urine Mucus Rare H (None) /hpf Urine HCG, Qual Not Detected (Not Detectd) Phenytoin ug/mL Disposition Clinical Impression: Pneumonia, Seizure Disposition: HOME SELF-CARE Condition: Good Instructions: Community Acquired Pneumonia (ED), Recurrent Seizures in Adults ( ED) Additional Instructions: Patient to adhere to previously discussed treatment plan and will take medication(s) as directed. Patient to follow up with PCP in 1-2 days. Patient to return to ED if symptoms do not improve. Prescriptions: Amoxicillin/Potassium Clav [Augmentin 875-125 Tablet] 1 each PO Q12HR #20 tab Azithromycin [Zithromax Z-pack] 0 mg PO DIRECTED #6 tab Is patient prescribed a controlled substance at d/c from ED?: No Referrals: Abdirashid Hagen MD [Primary Care Provider] - 1-2 days Time of Disposition: 23:39
--- NOTE | 2018-10-10 21:17 | CT ---
EXAMINATION TYPE: CT ChestAbdPelvis w con DATE OF EXAM: 10/10/2018 COMPARISON: Chest CT scan 06/20/2018. Abdomen CT scan 03/13/2018. HISTORY: rt side pain. Hx rt lung ca CT DLP: 2864.4 combined DPL mGycm Automated exposure control for dose reduction was used. CONTRAST: CT scan of the chest, abdomen and pelvis is performed without Oral Contrast and with IV Contrast, pat ient injected with 100 mL of Isovue 300. FINDINGS: There is small right pleural effusion. There is some coarse interstitial density in the mid and lower lung gonzales. There are enlarged mediastinal lymph nodes that measure up to 1.5 cm. Adenopathy appear s increased slightly compared to old exam. There is anterior mediastinal lymph nodes up to 1 cm uncha nged. There is no pericardial effusion. Liver shows no focal defect. There are clips from cholecystectomy. Bile ducts are not dilated. Stomac h appears normal. Spleen appears normal. There is no pancreatic mass. There is 1 cm nodule on the lef t adrenal gland. Unchanged. Kidneys show satisfactory contrast opacification. There is no hydronephrosis. There is no retroperito romie adenopathy. There is no ascites. Bladder distends smoothly. There is no inguinal hernia. There i s no free fluid in the pelvis. There is no mesenteric edema. Appendix appears normal. I see no bony d estructive process. IMPRESSION: Interstitial infiltrates and atelectasis in the mid and lower lung gonzales. Cardiomegaly. Stable left adrenal nodule. Slight increase mediastinal adenopathy compared to old exam. Old right po sterior rib fractures noted. New small right pleural effusion compared to old exam. Recurrent tumor should be considered.
--- NOTE | 2018-10-10 21:21 | CT ---
EXAMINATION TYPE: CT brain [place] DATE OF EXAM: 10/10/2018 COMPARISON: 09/07/2017 HISTORY: pt had [address] DLP: 2864.4 combined DPL mGycm Automated exposure control for dose reduction was used. TECHNIQUE: CT scan of the head and cervical spine are performed without contrast. FINDINGS: Ventricles have normal size. There is no mass effect nor midline shift. There is no sign of intracranial hemorrhage. The calvarium is intact. There is mild straightening of the cervical vertebra. Disc spaces are fairly normal. Posterior elemen ts are intact. There is no compression fracture. Skull base is intact. I see no bony destructive proc ess. IMPRESSION: Negative CT scan of the brain. No change. Negative CT scan cervical spine. No fracture.
[2018-10-10] MEDS ORDERED: PHENYTOIN SODIUM EXTENDED 100 MG CAP PO STA ×2 (21:51)
[2018-10-10] MEDS ORDERED: MORPHINE SULFATE 4 MG/ML SYRINGE IV STA (22:20)
[2018-10-10] MEDS ORDERED: ACETAMINOPHEN TAB 325 MG TAB PO STA (22:20)
[2018-10-10] MEDS ORDERED: KETOROLAC 30 MG/ML 1 ML VIAL IVP STA (22:23)
[2018-10-10 22:56] LABS: Appearance,Urine Clear (Clear); Bacteria,Urine Rare /hpf; Bilirubin,Urine Negative (Negative); Blood,Urine Small (Negative); Color,Urine Yellow; Glucose,Urine (UA) Negative (Negative); Ketones,Urine Negative (Negative); Leukocyte Esterase,Urine Small (Negative); Mucus,Urine Rare /hpf; Nitrite,Urine Negative (Negative); Protein,Urine Trace (Negative); RBC,Urine 6 /hpf (0-5); Squamous Epithelial Cell,Urine 7 /hpf (0-4); Urobilinogen,Urine <2.0 mg/dL (<2.0)
[2018-10-10 23:19] LABS: Specific Gravity,Urine >1.050 (1.001-1.035)
[2018-10-10 23:45] VITALS: BP 116/70; PULSE 90; RESP 20; TEMP 100
== END 2018-10-10 23:50 | disposition home or self-care (01) ==
LOC: EC 17:24
DX: G40.909 Epilepsy, unspecified, not intractable, without status epilepticus (principal); J18.9 Pneumonia, unspecified organism; R91.8 Other nonspecific abnormal finding of lung field; J98.11 Atelectasis; J90 Pleural effusion, not elsewhere classified; K90.81 Whipple's disease; R07.81 Pleurodynia; R10.9 Unspecified abdominal pain; R51 Headache; Z87.891 Personal history of nicotine dependence; Z88.0 Allergy status to penicillin; Z88.5 Allergy status to narcotic agent; Z88.8 Allergy status to other drugs, medicaments and biological substances; Z79.899 Other long term (current) drug therapy; Z85.118 Personal history of other malignant neoplasm of bronchus and lung; Z90.2 Acquired absence of lung [part of]; Z90.49 Acquired absence of other specified parts of digestive tract; Z80.1 Family history of malignant neoplasm of trachea, bronchus and lung; Z53.8 Procedure and treatment not carried out for other reasons; W19.XXXA Unspecified fall, initial encounter; Y93.01 Activity, walking, marching and hiking
CPT/HCPCS: 36415; 93005; 80053; 80185; 85025; 81001; 81025; 87086; 80184; 72125; 70450; 71260; 74177; 99285; 96365; 96375 ×2; 96361 ×2; J2060; J0696; J1885; Q9967

== ENCOUNTER 2018-10-29 20:05 | Emergency (ER) | payer OTHER ==
[2018-10-29 20:15] VITALS: TEMP 99.6
[2018-10-29] MEDS ORDERED: SODIUM CHLORIDE 0.9% 500 ML 500 ML IV STA (20:26)
[2018-10-29] MEDS ORDERED: LORazepam 2 MG/ML INJ IV STA ×3 (20:56→22:43)
--- NOTE | 2018-10-29 21:01 | XR ---
EXAMINATION: XR chest 2V DATE AND TIME: 10/29/2018 8:44 PM CLINICAL INDICATION: Dyspnea with multiple seizures today. History lung carcinoma. TECHNIQUE: Departmental protocol COMPARISON: 11/29/2017 radiograph, CT chest 10/10/2018 FINDINGS: The right mid/lower lung zone oblique linear band of added opacity associated with elevatio n of the right hemidiaphragm, seen on the prior radiograph and CT, is redemonstrated. This finding is similar but there is increased right lower lung zone added opacity in the interim suggesting airless ness within the right lower lobe, with differential atelectasis versus bronchopneumonia if clinically corroborated. There is no pulmonary edema. The pleural spaces are negative. The cardiac silhouette is not enlarged. The skeletal structures and soft tissues are negative for acute findings. IMPRESSION: Evidence of right lower lobe airlessness.
--- NOTE | 2018-10-29 21:08 | CT ---
EXAMINATION TYPE: CT brain nona wo con DATE OF EXAM: 10/29/2018 COMPARISON: 10/10/2018 HISTORY: Seizure and fall. CT DLP: 1474 mGycm Automated exposure control for dose reduction was used. TECHNIQUE: CT scan of the head and cervical spine are performed without contrast. FINDINGS: There is no acute intracranial hemorrhage, mass effect, or midline shift identified. The ventricles and sulci are within normal limits in size. The globes are intact and the visualized sin uses are clear. Cervical spine is visualized in its entirety from C1 through upper thoracic levels and demonstrates s atisfactory alignment without evidence of acute fracture or dislocation. Prevertebral soft tissue ap pears within normal limits. The C1-C2 articulation is unremarkable. IMPRESSION: 1. There is no acute fracture or dislocation evident in the cervical spine. 2. No acute intracranial hemorrhage, mass effect, or midline shift is seen.
--- NOTE | 2018-10-29 21:13 | ED ---
Seizure HPI - General Source: patient Mode of arrival: wheelchair Limitations: no limitations <Michelle Grace - Last Filed: 10/29/18 23:31> <Alpa Cordoba - Last Filed: 10/30/18 03:49> - General Chief Complaint: Seizure Stated Complaint: Seizures Time Seen by Provider: 10/29/18 20:19 - History of Present Illness Initial Comments: 58-year-old female past medical history of seizure disorder and lung cancer status post lung resection and one round of chemotherapy in September 2018. Patient is on phenytoin and phenobarbital patient as well as patient's states she is compliant. I was only able to obtain a small amount of HPI from patient as she was alert and oriented 2 upon arrival. Patient states her last seizure was October 11, this was confirmed in discussion with . Patient has had a total of 3 seizures today, despite being compliant with her antiepileptic medications. Patient did state that she had fallen hitting her head, this WAS confirmed by . Patient denies any shoulder pain. states the patient did bite her tongue earlier during seizure, and experienced incontinence. Remainder review of systems was difficult to obtain, patient did deny all remaining review of systems however given postictal state it is difficult to validate. Upon arrival pt O2 saturation 90% on RA, pt HR 100. (Michelle Grace) - Related Data Home Medications Medication Instructions Recorded Confirmed PHENobarbital [Luminal] 32.4 mg PO DAILY 03/16/14 10/29/18 Phenytoin Sodium Extended 200 mg PO BID 03/16/14 10/29/18 [Dilantin] PHENobarbital 64.8 mg PO HS 09/07/17 10/29/18 Metoprolol Tartrate 25 mg PO DAILY 11/15/17 10/29/18 Ergocalciferol (Vitamin D2) 50,000 unit PO Q28D 10/10/18 10/29/18 [Vitamin D2] HYDROcodone/APAP 5-325MG [Parker 1 tab PO DAILY PRN 10/10/18 10/29/18 5-325] Allergies Allergy/AdvReac Type Severity Reaction Status Date / Time Penicillins Allergy Rash/Hives Verified 10/29/18 20:53 codeine AdvReac Abdominal Verified 10/29/18 20:53 Pain ranitidine HCl [From Zantac] AdvReac interacts Verified 10/29/18 20:53 with dilantin Review of Systems ROS Other: All systems not noted in ROS Statement are negative. <Michelle Grace Geovani - Last Filed: 10/29/18 23:31> ROS Other: All systems not noted in ROS Statement are negative. <Cordoba,Alpa P - Last Filed: 10/30/18 03:49> ROS Statement: Those systems with pertinent positive or pertinent negative responses have been documented in the HPI. Past Medical History Past Medical History: Seizure Disorder Additional Past Medical History / Comment(s): H. pylori; UTI; Whipple's Disease, History of Any Multi-Drug Resistant Organisms: None Reported Past Surgical History: Cholecystectomy Additional Past Surgical History / Comment(s): cataract, lymphnodectomy, cancer removed from lung, Past Psychological History: No Psychological Hx Reported Smoking Status: Former smoker Past Alcohol Use History: None Reported Past Drug Use History: None Reported - Past Family History Father Family Medical History: Cancer Additional Family Medical History / Comment(s): LUNG Mother Family Medical History: Cancer, Coronary Artery Disease (CAD), Diabetes Mellitus Additional Family Medical History / Comment(s): LUNG CA <Michelle Grace L - Last Filed: 10/29/18 23:31> General Exam Limitations: no limitations <Michelle Grace L - Last Filed: 10/29/18 23:31> <CordobaPanchoAlpa P - Last Filed: 10/30/18 03:49> - General Exam Comments Initial Comments: General: The patient is awake and alert, in no distress. Appears post-ictal. Eye: +3 mm pupils are equal, round and reactive to light, extra-ocular movements are intact. No nystagmus. There is normal conjunctiva bilaterally. No signs of icterus. Ears, nose, mouth and throat: There are moist mucous membranes and no oral lesions. Neck: The neck is supple, there is no tenderness or JVD. Cardiovascular: There is a regular rate and rhythm. No murmur, rub or gallop is appreciated. Respiratory: Lungs are clear to auscultation, respirations are non-labored, breath sounds are equal. No wheezes, stridor, rales, or rhonchi. Gastrointestinal: Soft, non-distended, non-tender abdomen without masses or organomegaly noted. There is no rebound or guarding present. No CVA tenderness. Bowel sounds are unremarkable. Musculoskeletal: Normal ROM of the UE and LE, no tenderness to palpation. Strength 5/5. Sensation intact of the LE and UE. Radial and DP pulses equal bilaterally 2+. Neurological: A&O x 3. CN II-XII intact, there are no obvious motor or sensory deficits. Coordination appears grossly intact, however each movement sluggish. Speech is slow, slurred. Skin: Skin is warm and dry and no rashes or lesions are noted. Large right sided tongue laceration, no severance. Psychiatric: Cooperative, very slow to answer questions, loses train of thought easily. (Michelle Grace) Course <Michelle Grace - Last Filed: 10/29/18 23:31> <Alpa Cordoba - Last Filed: 10/30/18 03:49> Vital Signs 10/29/18 10/29/18 10/29/18 20:11 21:11 21:15 Temperature 99.6 F Pulse Rate 100 110 H 109 H Respiratory 18 32 H 26 H Rate Blood Pressure 133/79 129/87 125/83 O2 Sat by Pulse 90 L 98 95 Oximetry 10/29/18 10/29/18 21:35 23:01 Temperature Pulse Rate 111 H 94 Respiratory 25 H 20 Rate Blood Pressure 133/77 110/79 O2 Sat by Pulse 95 96 Oximetry - Reevaluation(s) Reevaluation #1: Seizure-tonic clonic last ~45 seconds. 2mg IV ativan given. Resolution of symptoms. Pt bit tongue. large right sided tongue laceration. Pt post ictal. 10/29/18 (Michelle Grace) Reevaluation #2: pt sleeping. (Michelle Grace) Reevaluation #3: Pt aaox3, stable for transport 10/29/18 23:12 (Michelle Grace) Medical Decision Making - Lab Data Result diagrams: 10/29/18 21:05 10/29/18 21:05 <Michelle Grace - Last Filed: 10/29/18 23:31> - Lab Data Result diagrams: 10/29/18 21:05 10/29/18 21:05 <Alpa Cordoba - Last Filed: 10/30/18 03:49> - Medical Decision Making 58-year-old female known seizure disorder with increasing seizure activity. Patient phenytoin and phenobarbital. Phenytoin levels are subtherapeutic less than 10 on laboratory studies. Patient did have one tonic-clonic seizure 45 seconds, resolution with [address] of the brain without contrast obtained, negative for acute intracranial process. C-spine cleared. Chest x- ray revealed air less right lower lung lobe. DDX atelectasis vs bronchopneumonia. Remainder of laboratory values unremarkable, expected elevation of WBC with 3 seizures today. At this time given no neurology staff, and increasing frequency of seizures with need for possible alteration in therapeutic treatment of choice patient be transferred for further evaluation and treatment at [facility] were neurology services are available. Dr. Bernabe at [facility] accepted admission, ER to ER transfer. Pt is post ictal. Protecting airway. Case discussed with Dr. Cordoba prior to patient transport 30 minutes of critical care performed, this included initial evaluation and history of presenting illness obtained from patient as well as family member when he arrived, physical assessment, I also was present during and evaluated patient during tonic-clonic seizure, discussing transfer with outside facility physician, discussing case with attending provider, discussing plan and transfer with family and patient. (Michelle Grace) I personally saw and examined the patient. I reviewed and agree with the mid- level provider findings including all diagnostic interpretations and treatment plans as written unless otherwise stated. (Alpa Cordoba) - Lab Data Lab Results 10/29/18 10/29/18 10/29/18 Range/Units 21:05 21:05 22:06 WBC 15.4 H (3.8-10.6) k/uL RBC 4.34 (3.80-5.40) m/uL Hgb 13.7 (11.4-16.0) gm/dL Hct 42.1 (34.0-46.0) % MCV 96.9 (80.0-100.0) fL MCH 31.5 (25.0-35.0) pg MCHC 32.5 (31.0-37.0) g/dL RDW 13.9 (11.5-15.5) % Plt Count 316 (150-450) k/uL Neutrophils % 73 % Lymphocytes % 19 % Monocytes % 4 % Eosinophils % 1 % Basophils % 1 % Neutrophils # 11.3 H (1.3-7.7) k/uL Lymphocytes # 3.0 (1.0-4.8) k/uL Monocytes # 0.7 (0-1.0) k/uL Eosinophils # 0.1 (0-0.7) k/uL Basophils # 0.1 (0-0.2) k/uL PT 10.2 (9.0-12.0) sec INR 0.9 (<1.2) APTT 20.8 L (22.0-30.0) sec Sodium 143 (137-145) mmol/L Potassium 4.2 (3.5-5.1) mmol/L Chloride 108 H (98-107) mmol/L Carbon Dioxide 19 L (22-30) mmol/L Anion Gap 16 mmol/L BUN 14 (7-17) mg/dL Creatinine 0.54 (0.52-1.04) mg/dL Est GFR (CKD-EPI)AfAm >90 (>60 ml/min/1.73 sqM) Est GFR (CKD-EPI)NonAf >90 (>60 ml/min/1.73 sqM) Glucose 129 H (74-99) mg/dL Calcium 9.6 (8.4-10.2) mg/dL Total Bilirubin 0.5 (0.2-1.3) mg/dL AST 39 H (14-36) U/L ALT 30 (9-52) U/L Alkaline Phosphatase 126 (38-126) U/L Total Protein 9.2 H (6.3-8.2) g/dL Albumin 4.6 (3.5-5.0) g/dL Phenytoin 7.5 ug/mL - EKG Data EKG Comments: Ventricular rate 102 bpm, MO interval 138 ms, QR yarsanism 80 ms, QT/QTC 342/ 445 ms. This appears to be sinus tachycardia. There are nonspecific T-wave abnormalities, no ST elevation or depression. No peaking of the T waves. (Michelle Grace) Disposition Is patient prescribed a controlled substance at d/c from ED?: No Time of Disposition: 22:04 - Out of Hospital Transfer - Req. Specs Out of Hospital Transfer - Requested Specifics: Other Emergency Center ([facility]) <Michelle Grace L - Last Filed: 10/29/18 23:31> <Alpa Cordoba P - Last Filed: 10/30/18 03:49> Clinical Impression: Increasing frequency of seizure activity, Tonic clonic seizures Disposition: HOME SELF-CARE Condition: Good Instructions: Recurrent Seizures in Adults (ED) Referrals: Abdirashid Hagen MD [Primary Care Provider] - 1-2 days
[2018-10-29 21:21] LABS: Basophils # (A) 0.1 k/uL (0-0.2); Basophils % (A) 1 %; Eosinophils # (A) 0.1 k/uL (0-0.7); Eosinophils % (A) 1 %; HCT 42.1 % (34.0-46.0); HGB 13.7 gm/dL (11.4-16.0); Lymphocytes % (A) 19 %; MCH 31.5 pg (25.0-35.0); MCHC 32.5 g/dL (31.0-37.0); MCV 96.9 fL (80.0-100.0); Mean Platelet Volume 6.5; Monocytes # (A) 0.7 k/uL (0-1.0); Monocytes % (A) 4 %; Neutrophils # (A) 11.3 k/uL (1.3-7.7); Neutrophils % (A) 73 %; Platelet Count 316 k/uL (150-450); RBC 4.34 m/uL (3.80-5.40); RDW 13.9 % (11.5-15.5); WBC 15.4 k/uL (3.8-10.6)
[2018-10-29 21:42] LABS: ALT 30 U/L (9-52); AST 39 U/L (14-36); Albumin 4.6 g/dL (3.5-5.0); Alkaline Phosphatase 126 U/L (38-126); Anion Gap 16 mmol/L; Blood Urea Nitrogen 14 mg/dL (7-17); Calcium 9.6 mg/dL (8.4-10.2); Carbon Dioxide 19 mmol/L (22-30); Chloride 108 mmol/L (98-107); Glucose 129 mg/dL (74-99); Phenytoin (Dilantin) 7.5 ug/mL; Potassium 4.2 mmol/L (3.5-5.1); Sodium 143 mmol/L (137-145); Total Bilirubin 0.5 mg/dL (0.2-1.3); Total Protein 9.2 g/dL (6.3-8.2)
[2018-10-29 22:36] LABS: INR 0.9 (<1.2); Prothrombin Time 10.2 sec (9.0-12.0)
[2018-10-29 22:38] LABS: Partial Thromboplastin Time 20.8 sec (22.0-30.0)
[2018-10-29 23:04] VITALS: BP 110/79; PULSE 94; RESP 20
== END 2018-10-29 23:30 | disposition home or self-care (01) ==
LOC: EC 20:05
DX: G40.409 Other generalized epilepsy and epileptic syndromes, not intractable, without status epilepticus (principal); S01.512A Laceration without foreign body of oral cavity, initial encounter; Z85.118 Personal history of other malignant neoplasm of bronchus and lung; Z87.891 Personal history of nicotine dependence; Z92.21 Personal history of antineoplastic chemotherapy; Z98.890 Other specified postprocedural states; Z79.899 Other long term (current) drug therapy; Z88.0 Allergy status to penicillin; Z88.5 Allergy status to narcotic agent; Z88.8 Allergy status to other drugs, medicaments and biological substances; X58.XXXA Exposure to other specified factors, initial encounter
CPT/HCPCS: 36415; 93005; 80053; 80185; 85025; 85610; 85730; 80184; 71046; 72125; 70450; 99285; 96374; 96361; J2060

== ENCOUNTER → 2018-11-06 | Outpatient (CLI) | payer OTHER | END | disposition home or self-care (01) | LOC: LABWHC1 09:42 | PROVIDERS: ATTEND Psychiatry & Neurology Neurology | DX: G40.209 Localization-related (focal) (partial) symptomatic epilepsy and epileptic syndromes with complex partial seizures, not intractable, without status epilepticus (principal) | CPT/HCPCS: 36415; 80184; 80185; 84450; 84460 ==

== ENCOUNTER → 2019-01-14 | Outpatient (CLI) | payer OTHER ==
--- NOTE | 2019-01-14 14:35 | CT ---
EXAMINATION TYPE: CT chest w con DATE OF EXAM: 01/14/2019 COMPARISON: 10/10/2018 HISTORY: 58-year-old female Lung cancer. Observation for metastases TECHNIQUE: Contiguous axial scanning of the chest after the administration of 100 mL of Isovue M300. Coronal/sagittal reconstructions performed. CT DLP: 399.3mGycm. Automatic exposure control utilized for a dose reduction. FINDINGS: Heart upper limits of normal in size without pericardial effusion. Aorta normal caliber with conventional arch vessel branching anatomy. There is volume loss in the right hemithorax secondary to new nodular pleural rind. Small right pleur al effusion with both the basilar and parietal pleura showing nodular thickening. Previous right middle lobectomy with stable alignment demonstrated and new extensive irregular soft t issue thickening along the surgical material, refer to axial image 29. Mediastinal lymphadenopathy has progressed measuring up to 2.9 x 1.9 cm in the AP window, 1.8 x 1.5 c m in the prevascular space, and 4.7 x 2.4 cm in the right paratracheal space. Underlying right hilar lymphadenopathy measuring up to 2.3 cm and subcarinal lymphadenopathy measurin g 1.5 and 2.0 x 1.5 cm. Possible 4 mm left mid lung pulmonary nodule within the lingula, axial image 23. There is a subtle hypodense lesion measuring 2.4 cm along the anterior mid liver, axial image 41 and several smaller 7 mm lesion posteriorly in the right liver lobe and possibly segment 3 left liver lob e measuring 1.0 cm. Left adrenal nodule measures 1.6 cm, unchanged. There is new nodularity along the posterior lower back soft tissues on the right measuring up to 1.7 cm, reference axial images 27 through 50. At least 7 nodules are present. Bones: Old right posterior rib fracture deformities. IMPRESSION: 1. Prior right middle lobectomy but with marked interval disease progression with new diffuse nodular pleural rind on the right and malignant small right pleural effusion. There is new soft tissue recur rence along the right middle lobe surgical staple line and susan right hilar and mediastinal lymphade nopathy measuring up to 2.9 cm. 2. Possible 4 mm left mid lung pulmonary nodule not clearly seen previously. 3. Metastatic soft tissue deposits along the right posterolateral lower chest region with at least 7 nodules measuring up to 1.7 cm. 4. Approximately 3 new liver lesions measuring up to 2.4 cm suspicious for liver metastases. 5. 1.6 cm left adrenal nodule remains stable.
== END | disposition home or self-care (01) ==
LOC: RADCTMAIN 11:52
PROVIDERS: ATTEND Internal Medicine Hematology & Oncology
DX: Z03.89 Encounter for observation for other suspected diseases and conditions ruled out (principal); C79.89 Secondary malignant neoplasm of other specified sites; J91.0 Malignant pleural effusion; R59.0 Localized enlarged lymph nodes; K76.9 Liver disease, unspecified; E27.8 Other specified disorders of adrenal gland; C34.2 Malignant neoplasm of middle lobe, bronchus or lung; Z90.2 Acquired absence of lung [part of]; Z88.0 Allergy status to penicillin; Z88.5 Allergy status to narcotic agent; Z88.8 Allergy status to other drugs, medicaments and biological substances
CPT/HCPCS: 71260; Q9967

== ENCOUNTER 2019-02-23 16:35 | Inpatient (IN) | payer OTHER ==
[2019-02-23] MEDS ORDERED: MORPHINE SULFATE 4 MG/ML SYRINGE IVP STA (17:16)
[2019-02-23 17:54] LABS: Basophils # (A) 0.1 k/uL (0-0.2); Basophils % (A) 1 %; Eosinophils # (A) 0.2 k/uL (0-0.7); Eosinophils % (A) 1 %; HCT 38.8 % (34.0-46.0); HGB 12.6 gm/dL (11.4-16.0); Lymphocytes # (A) 1.4 k/uL (1.0-4.8); Lymphocytes % (A) 12 %; MCH 29.4 pg (25.0-35.0); MCHC 32.3 g/dL (31.0-37.0); Mean Platelet Volume 6.7; Monocytes # (A) 0.6 k/uL (0-1.0); Monocytes % (A) 5 %; Neutrophils # (A) 9.2 k/uL (1.3-7.7); Neutrophils % (A) 80 %; Platelet Count 520 k/uL (150-450); RBC 4.27 m/uL (3.80-5.40); RDW 14.6 % (11.5-15.5); WBC 11.5 k/uL (3.8-10.6)
[2019-02-23 18:03] LABS: ALT 28 U/L (9-52); AST 43 U/L (14-36); Alkaline Phosphatase 127 U/L (38-126); Anion Gap 10 mmol/L; Blood Urea Nitrogen 11 mg/dL (7-17); Calcium 9.2 mg/dL (8.4-10.2); Carbon Dioxide 27 mmol/L (22-30); Chloride 97 mmol/L (98-107); Glucose 99 mg/dL (74-99); Potassium 4.5 mmol/L (3.5-5.1); Sodium 134 mmol/L (137-145); Total Bilirubin 0.2 mg/dL (0.2-1.3); Total Protein 8.4 g/dL (6.3-8.2)
[2019-02-23 18:09] LABS: Prothrombin Time 10.4 sec (9.0-12.0)
--- NOTE | 2019-02-23 18:25 | CT ---
EXAMINATION TYPE: CT chest angio for PE DATE OF EXAM: 02/23/2019 COMPARISON: January 14, 2019 HISTORY: Pt has RT side pain, radiating to back. Hypoxic, tachycardic. Hx RT lobectomy, lung ca CT DLP: 559.7 mGycm Automated exposure control for dose reduction was used. CONTRAST: CT Chest for pulmonary embolism performed with with IV Contrast, patient injected with 100 mL of Isov ue 370. FINDINGS: There are 3-D post processed images. There are multiple enlarged mediastinal lymph nodes that measure up to 3.5 cm. Thoracic aorta shows n o aneurysm or dissection. There is extensive pleural thickening on the right side with pneumonic cons olidation in the right lower lobe. I see no filling defects in the pulmonary arteries. There is a ova l-shaped 2 x 1.5 cm left adrenal mass. Heart is enlarged. There is no pericardial effusion. Thoracic spine is intact. Bony thorax is intact. IMPRESSION: No evidence of pulmonary embolism. There is extensive mediastinal adenopathy that appears increased c ompared to last CT scan. There is extensive pleural thickening and consolidation in the right lower l obe and pleural fluid that has progressed compared to last exam. This is consistent with progression of tumor. Stable left adrenal mass is indeterminate.
[2019-02-23 18:30] LABS: Partial Thromboplastin Time 21.9 sec (22.0-30.0)
[2019-02-23] MEDS ORDERED: IPRATROPIUM-ALBUTEROL 3 ML NEB INHALATION STA (18:59)
[2019-02-23] MEDS ORDERED: NALOXONE 0.4 MG/ML 1 ML VIAL IV PRN (19:12)
--- NOTE | 2019-02-23 19:12 | ED ---
SOB HPI - General Chief Complaint: Shortness of Breath Stated Complaint: fluid on lungs Time Seen by Provider: 02/23/19 16:54 Source: patient Mode of arrival: wheelchair Limitations: no limitations - History of Present Illness Initial Comments: The patient is a 58-year-old female with past medical history of lung cancer who presents the emergency room with complaint of shortness of breath. The patient was diagnosed with cancer 2 years ago. She did undergo 1 round of chemotherapy. The patient states she did not tolerate it and stopped. She did have a lobectomy performed. The patient states that she was then in remission up until January of this year. She did have a CT performed which demonstrated recurrence of the cancer. She is currently seen Dr. Sewell. They are awaiting insurance approval for oral chemotherapy. The patient is not currently on any treatment. She did see her primary care physician this week in the office for a routine checkup. Primary care physician did note that the patient was hypoxic. He instructed the patient go and go to the ER. The patient's refused initially. She states she wanted to spend Mother's Day with her family. Family was able to convince the patient to come to the emergency room today. She admits to chronic right upper quadrant abdominal pain secondary to liver metastases. She denies any fevers or chills. No nausea or vomiting. No history of DVTs or PEs. Denies any calf pain or swelling. No recent travel or prolonged immobility. No family history of blood clotting disorders. She denies chest pain or chest palpitations. There are no other alleviating, precipitating or modifying factors - Related Data Home Medications Medication Instructions Recorded Confirmed PHENobarbital [Luminal] 32.4 mg PO DAILY 03/16/14 02/23/19 Phenytoin Sodium Extended 200 mg PO BID 03/16/14 02/23/19 [Dilantin] PHENobarbital 64.8 mg PO HS 09/07/17 02/23/19 Metoprolol Tartrate 12.5 mg PO BID 11/15/17 02/23/19 Albuterol Nebulized [Ventolin 2.5 mg INHALATION RT-Q6H PRN 02/23/19 02/23/19 Nebulized] Famotidine 40 mg PO DAILY 02/23/19 02/23/19 HYDROcodone/APAP 10-325MG [Hodgen 1 tab PO Q4HR PRN 02/23/19 02/23/19 10-325] Ondansetron [Zofran] 4 mg PO Q4H PRN 02/23/19 02/23/19 Allergies Allergy/AdvReac Type Severity Reaction Status Date / Time Penicillins Allergy Rash/Hives Verified 02/23/19 17:26 codeine AdvReac Abdominal Verified 02/23/19 17:26 Pain ranitidine HCl [From Zantac] AdvReac interacts Verified 02/23/19 17:26 with dilantin Review of Systems ROS Statement: Those systems with pertinent positive or pertinent negative responses have been documented in the HPI. ROS Other: All systems not noted in ROS Statement are negative. Past Medical History Past Medical History: Cancer, Seizure Disorder Additional Past Medical History / Comment(s): H. pylori; UTI; Whipple's Disease, History of Any Multi-Drug Resistant Organisms: None Reported Past Surgical History: Cholecystectomy Additional Past Surgical History / Comment(s): cataract, lymphnodectomy, cancer removed from lung, Past Psychological History: No Psychological Hx Reported Smoking Status: Former smoker Past Alcohol Use History: None Reported Past Drug Use History: None Reported - Past Family History Father Family Medical History: Cancer Additional Family Medical History / Comment(s): LUNG Mother Family Medical History: Cancer, Coronary Artery Disease (CAD), Diabetes Mellitus Additional Family Medical History / Comment(s): LUNG CA General Exam Limitations: no limitations General appearance: alert, in no apparent distress Head exam: Present: atraumatic, normocephalic, normal inspection Eye exam: Present: normal appearance, PERRL, EOMI. Absent: scleral icterus, conjunctival injection, periorbital swelling ENT exam: Present: normal exam, mucous membranes moist Neck exam: Present: normal inspection. Absent: tenderness, meningismus, lymphadenopathy Respiratory exam: Present: decreased breath sounds, other (The patient has coarse breath sounds on the right. She has mild conversational dyspnea. She is hypoxic on room air. There is a mild expiratory wheeze. No accessory muscle use.). Absent: rales, rhonchi, stridor Cardiovascular Exam: Present: regular rate, normal rhythm, normal heart sounds. Absent: systolic murmur, diastolic murmur, rubs, gallop, clicks GI/Abdominal exam: Present: soft, tenderness, normal bowel sounds, other (Patient does have tenderness to palpation of the right upper quadrant. No hepatomegaly appreciated. No palpable masses.). Absent: distended, guarding, rebound, rigid Extremities exam: Present: normal inspection, full ROM, normal capillary refill. Absent: tenderness, pedal edema, joint swelling, calf tenderness Back exam: Present: normal inspection Neurological exam: Present: alert, oriented X3, CN II-XII intact Psychiatric exam: Present: normal affect, normal mood Skin exam: Present: warm, dry, intact, normal color. Absent: rash Course Vital Signs 02/23/19 02/23/19 02/23/19 16:41 16:52 17:00 Temperature 98.5 F Pulse Rate 111 H 99 Respiratory 20 27 H Rate Blood Pressure 101/64 126/84 O2 Sat by Pulse 85 L 68 L 96 Oximetry 02/23/19 02/23/19 02/23/19 17:30 18:00 18:30 Temperature Pulse Rate 96 98 Respiratory 32 H 20 Rate Blood Pressure 118/79 118/79 118/79 O2 Sat by Pulse 95 94 L Oximetry 02/23/19 02/23/19 02/23/19 19:00 19:12 19:17 Temperature Pulse Rate 96 97 101 H Respiratory 23 Rate Blood Pressure 124/78 O2 Sat by Pulse 95 Oximetry Medical Decision Making - Medical Decision Making Upon arrival the patient was placed into room 9. She is hooked up to continuous pulse ox and cardiac monitoring. We did complete a 12-lead EKG which demonstrated a sinus rhythm with a ventricular rate of 97. MT interval 142. QRS 74. QTc 464. No acute ST segment elevations or depressions concerning for ischemic changes. The patient does have an inverted T-wave in lead V2. Patient is placed on 2 L of oxygen via nasal cannula. I did provide her with a DuoNeb breathing treatment and 4 mg IV of morphine. Laboratory studies were conducted and the patient was sent for a CT PE protocol of her chest. Upon return results I did discuss them with the patient. I did discuss diagnosis, differential and treatment options. As the patient does present with hypoxic respiratory failure I did recommend admission to the hospital for which the patient did agree. I did call and discuss the case with Dr. Hagen. He did accept the admission. I did place consult for Dr. Sewell. The patient did remain in stable condition and was transported to the floor - Lab Data Result diagrams: 02/23/19 17:40 02/23/19 17:40 Lab Results 02/23/19 02/23/19 02/23/19 Range/Units 17:40 17:40 17:40 WBC 11.5 H (3.8-10.6) k/uL RBC 4.27 (3.80-5.40) m/uL Hgb 12.6 (11.4-16.0) gm/dL Hct 38.8 (34.0-46.0) % MCV 91.0 (80.0-100.0) fL MCH 29.4 (25.0-35.0) pg MCHC 32.3 (31.0-37.0) g/dL RDW 14.6 (11.5-15.5) % Plt Count 520 H (150-450) k/uL Neutrophils % 80 % Lymphocytes % 12 % Monocytes % 5 % Eosinophils % 1 % Basophils % 1 % Neutrophils # 9.2 H (1.3-7.7) k/uL Lymphocytes # 1.4 (1.0-4.8) k/uL Monocytes # 0.6 (0-1.0) k/uL Eosinophils # 0.2 (0-0.7) k/uL Basophils # 0.1 (0-0.2) k/uL PT (9.0-12.0) sec INR (<1.2) APTT (22.0-30.0) sec Sodium 134 L (137-145) mmol/L Potassium 4.5 (3.5-5.1) mmol/L Chloride 97 L (98-107) mmol/L Carbon Dioxide 27 (22-30) mmol/L Anion Gap 10 mmol/L BUN 11 (7-17) mg/dL Creatinine 0.71 (0.52-1.04) mg/dL Est GFR (CKD-EPI)AfAm >90 (>60 ml/min/1.73 sqM) Est GFR (CKD-EPI)NonAf >90 (>60 ml/min/1.73 sqM) Glucose 99 (74-99) mg/dL Calcium 9.2 (8.4-10.2) mg/dL Total Bilirubin 0.2 (0.2-1.3) mg/dL AST 43 H (14-36) U/L ALT 28 (9-52) U/L Alkaline Phosphatase 127 H (38-126) U/L Troponin I (0.000-0.034) ng/mL NT-Pro-B Natriuret Pep 267 pg/mL Total Protein 8.4 H (6.3-8.2) g/dL Albumin 4.0 (3.5-5.0) g/dL Phenytoin ug/mL 02/23/19 02/23/19 02/23/19 Range/Units 17:40 17:40 17:40 WBC (3.8-10.6) k/uL RBC (3.80-5.40) m/uL Hgb (11.4-16.0) gm/dL Hct (34.0-46.0) % MCV (80.0-100.0) fL MCH (25.0-35.0) pg MCHC (31.0-37.0) g/dL RDW (11.5-15.5) % Plt Count (150-450) k/uL Neutrophils % % Lymphocytes % % Monocytes % % Eosinophils % % Basophils % % Neutrophils # (1.3-7.7) k/uL Lymphocytes # (1.0-4.8) k/uL Monocytes # (0-1.0) k/uL Eosinophils # (0-0.7) k/uL Basophils # (0-0.2) k/uL PT 10.4 (9.0-12.0) sec INR 1.0 (<1.2) APTT 21.9 L (22.0-30.0) sec Sodium (137-145) mmol/L Potassium (3.5-5.1) mmol/L Chloride (98-107) mmol/L Carbon Dioxide (22-30) mmol/L Anion Gap mmol/L BUN (7-17) mg/dL Creatinine (0.52-1.04) mg/dL Est GFR (CKD-EPI)AfAm (>60 ml/min/1.73 sqM) Est GFR (CKD-EPI)NonAf (>60 ml/min/1.73 sqM) Glucose (74-99) mg/dL Calcium (8.4-10.2) mg/dL Total Bilirubin (0.2-1.3) mg/dL AST (14-36) U/L ALT (9-52) U/L Alkaline Phosphatase (38-126) U/L Troponin I 0.036 H* (0.000-0.034) ng/mL NT-Pro-B Natriuret Pep pg/mL Total Protein (6.3-8.2) g/dL Albumin (3.5-5.0) g/dL Phenytoin 6.5 ug/mL - EKG Data -: EKG Interpreted by Me - Radiology Data Radiology results: report reviewed Disposition Clinical Impression: Acute respiratory failure with hypoxia, Pleural effusion, Lung cancer Disposition: ADMITTED IP TO THIS HOSP Condition: Stable Is patient prescribed a controlled substance at d/c from ED?: No Time of Disposition: 19:12 Decision to Admit Reason: Admit from EC Decision Date: 02/23/19 Decision Time: 19:12
[2019-02-23] MEDS ORDERED: PHENobarbital 32.4 MG TAB PO SCH (19:30)
[2019-02-23] MEDS ORDERED: IPRATROPIUM-ALBUTEROL 3 ML NEB INHALATION SCH (20:00)
[2019-02-23] MEDS: IPRATROPIUM-ALBUTEROL 3 ML NEB INHALATION SCH (20:09)
[2019-02-23 20:25] VITALS: BMI 39.4
[2019-02-23] MEDS: MORPHINE SULFATE 4 MG/ML SYRINGE IV PRN (20:31)
[2019-02-23] MEDS: METOPROLOL TARTRATE 12.5 MG TAB PO SCH (21:40)
[2019-02-23] MEDS: PHENobarbital 32.4 MG TAB PO SCH (21:41)
[2019-02-23] MEDS: PHENYTOIN SODIUM EXTENDED 100 MG CAP PO SCH (21:41)
[2019-02-24] MEDS: MORPHINE SULFATE 4 MG/ML SYRINGE IV PRN ×3 (02:05→11:52)
[2019-02-24] MEDS: IPRATROPIUM-ALBUTEROL 3 ML NEB INHALATION SCH ×4 (07:27→20:49)
[2019-02-24] MEDS: PHENYTOIN SODIUM EXTENDED 100 MG CAP PO SCH ×2 (07:31→20:08)
[2019-02-24] MEDS: FAMOTIDINE 20 MG TAB PO SCH (07:31)
[2019-02-24] MEDS: METOPROLOL TARTRATE 12.5 MG TAB PO SCH ×2 (07:32→20:08)
[2019-02-24 08:27] LABS: ALT 25 U/L (9-52); AST 41 U/L (14-36); Albumin 3.9 g/dL (3.5-5.0); Alkaline Phosphatase 125 U/L (38-126); Anion Gap 9 mmol/L; Blood Urea Nitrogen 9 mg/dL (7-17); Calcium 9.1 mg/dL (8.4-10.2); Carbon Dioxide 26 mmol/L (22-30); Chloride 98 mmol/L (98-107); Glucose 110 mg/dL (74-99); Potassium 4.5 mmol/L (3.5-5.1); Sodium 133 mmol/L (137-145); Total Bilirubin 0.4 mg/dL (0.2-1.3); Total Protein 8.3 g/dL (6.3-8.2)
--- NOTE | 2019-02-24 14:34 | P.CONS ---
History of Present Illness - Reason for Consult Consult date: 02/24/19 Lung cancer Requesting physician: Reta Cooper - Chief Complaint Shortness of Breath - History of Present Illness Ms Soliman is a pleasant patient of Dr. Dickerson known to us for her history of adenocarcinoma of the lung. In November of 2017 she was found to have a limited stage lung cancer and underwent Right Middle Lung Resection, with two negative Hilar Lymph Nodes. She did undergo adjuvant radiatin and one cycle of cisplatin and almta. Since this time she has remained on observation, although unfortunately her follow-up CT scan on 01/14/19, revealed definitive recurrent and progressive disease. Her original path was sent for further molecular testing and a new treatment plan was ordered. Dr. Sewell Recommended treatment with Carboplatin, Almta, and Keytruda. Patient was contacted on 01/27/19 regarding this treatment plan and was agreeable. 02/07/19 she was contacted to schedule although did not return call. On 02/20/19 we had contacted her again to schedule initiation of treatment and she stated she was not sure she wanted to proceed with treatment. Now she has presented to the hospital with complaints of increased shortness of breath. A CTA was performed on arrival neg for PE although did show further progressive cancer in comparison to scan from 01/14/19. During evaluation today patient is very apprehensive about chemotherapy. She states she only did one treatment post surgery cause she was too sick to do more. I explained how we could help her not to feel this way although she does not seem very motivated. She has not gotten out of bed even though she has been encouraged to. No bowel movement since admission and started on narcotic pain meds, initially refusing stool softeners. Remediation was done. She states her breathing and pain is still in her chest. We discussed palliative treatment to improve quiality. Review of Systems A 14 point review of systems assessed and completed and negative except HPI Past Medical History Past Medical History: Cancer, Seizure Disorder Additional Past Medical History / Comment(s): H. pylori; UTI; Whipple's Disease, History of Any Multi-Drug Resistant Organisms: None Reported Past Surgical History: Cholecystectomy Additional Past Surgical History / Comment(s): cataract, lymphnodectomy, cancer removed from lung, Past Psychological History: No Psychological Hx Reported Smoking Status: Former smoker Past Alcohol Use History: None Reported Past Drug Use History: None Reported - Past Family History Father Family Medical History: Cancer Additional Family Medical History / Comment(s): LUNG Mother Family Medical History: Cancer, Coronary Artery Disease (CAD), Diabetes Mellitus Additional Family Medical History / Comment(s): LUNG CA Medications and Allergies Home Medications Medication Instructions Recorded Confirmed Type PHENobarbital [Luminal] 32.4 mg PO DAILY 03/16/14 02/23/19 History Phenytoin Sodium Extended 200 mg PO BID 03/16/14 02/23/19 History [Dilantin] PHENobarbital 64.8 mg PO HS 09/07/17 02/23/19 History Metoprolol Tartrate 12.5 mg PO BID 11/15/17 02/23/19 History Albuterol Nebulized [Ventolin 2.5 mg INHALATION RT-Q6H PRN 02/23/19 02/23/19 History Nebulized] Famotidine 40 mg PO DAILY 02/23/19 02/23/19 History HYDROcodone/APAP 10-325MG [[place] 1 tab PO Q4HR PRN 02/23/19 02/23/19 History 10-325] Ondansetron [Zofran] 4 mg PO Q4H PRN 02/23/19 02/23/19 History Allergies Allergy/AdvReac Type Severity Reaction Status Date / Time Penicillins Allergy Rash/Hives Verified 02/23/19 17:26 codeine AdvReac Abdominal Verified 02/23/19 17:26 Pain ranitidine HCl [From Zantac] AdvReac interacts Verified 02/23/19 17:26 with dilantin Physical Exam Vitals: Vital Signs Temp Pulse Pulse Resp BP BP Pulse Ox 02/24/19 12:02 98.5 F 95 22 101/69 92 L 02/24/19 11:31 92 02/24/19 11:21 92 02/24/19 07:40 92 02/24/19 07:27 88 02/24/19 05:29 98.6 F 96 16 100/64 93 L 02/23/19 21:12 98.6 F 106 H 16 120/78 95 02/23/19 19:17 101 H 02/23/19 19:12 97 02/23/19 19:00 96 23 124/78 95 02/23/19 18:30 98 20 118/79 94 L 02/23/19 18:00 118/79 02/23/19 17:30 96 32 H 118/79 95 02/23/19 17:00 99 27 H 126/84 96 02/23/19 16:52 68 L 02/23/19 16:41 98.5 F 111 H 20 101/64 85 L Intake and Output 02/23/19 02/24/19 02/24/19 22:59 06:59 14:59 Intake Total 50 590 Balance 50 590 Intake: Amount of Fluid Infused ( 50 ml) Oral 590 Other: Voiding Method Toilet Toilet # Voids 2 2 Weight 88.451 kg gen: Alert and Oriented, NAD Head: NCNT Neck: Supple Lungs: Exp wheezing and diminished through all Mild increased effort Heart: Tachy, reg Abdomen: Pain Palpation RUQ, soft, ND Ext: No edema Neuro: No sensory or motor deficits. Results CBC & Chem 7: 02/23/19 17:40 02/24/19 07:30 Labs: Abnormal Lab Results - Last 24 Hours (Table) 02/23/19 02/23/19 02/23/19 Range/Units 17:40 17:40 17:40 WBC 11.5 H (3.8-10.6) k/uL Plt Count 520 H (150-450) k/uL Neutrophils # 9.2 H (1.3-7.7) k/uL APTT 21.9 L (22.0-30.0) sec Sodium 134 L (137-145) mmol/L Chloride 97 L (98-107) mmol/L Creatinine (0.52-1.04) mg/dL Glucose (74-99) mg/dL AST 43 H (14-36) U/L Alkaline Phosphatase 127 H (38-126) U/L Troponin I (0.000-0.034) ng/mL Total Protein 8.4 H (6.3-8.2) g/dL 02/23/19 02/24/19 Range/Units 17:40 07:30 WBC (3.8-10.6) k/uL Plt Count (150-450) k/uL Neutrophils # (1.3-7.7) k/uL APTT (22.0-30.0) sec Sodium 133 L (137-145) mmol/L Chloride (98-107) mmol/L Creatinine 0.45 L (0.52-1.04) mg/dL Glucose 110 H (74-99) mg/dL AST 41 H (14-36) U/L Alkaline Phosphatase (38-126) U/L Troponin I 0.036 H* (0.000-0.034) ng/mL Total Protein 8.3 H (6.3-8.2) g/dL Assessment and Plan Plan: Assessment and Recommendations: 1. Recurrent and Progressive Adenocarcinoma of the Lung: - Original Diagnosis in november 2017 - Status POst RML Resection, adjuvant chemo and radiation - 01/14/19 - Evidence of recurrence and metastatic cancer - Treatment Recs: Carbo/Almta/Keytruda - Patient has been contacted to schedule and has not made up mind yet if she wanted to pursue treatment. Acute Hypoxic Respiratory Failure: Improving - Maintain Oxygenation above 92% - Pulmonary Following - Discussion of Initiation of treatment versus decisions to forgo treatment PLan: - Encourage patient up and out of bed with meals and ambulate with standby assist - Re-discussed risks and benefits of chemotherapy goals - Encourage to stay adherent with PO hydration and stool softeners on narcotic medication
[2019-02-24] MEDS: oxyCODONE-APAP 10-325MG 1 EACH TAB PO PRN ×2 (15:46→19:31)
[2019-02-24] MEDS: PHENobarbital 32.4 MG TAB PO SCH (20:08)
--- NOTE | 2019-02-24 22:43 | HP ---
HISTORY AND PHYSICAL CHIEF COMPLAINT: Shortness of breath and right-sided chest pain, intractable. HISTORY OF PRESENT ILLNESS: This is another admission for this 58-year-old female who had resection of a pulmonary neoplasm a year or two ago. Lately she has been having increasing amounts of pain in the right lateral chest wall and increasing shortness of breath. She was in the office last week and the pain was almost unbearable. She was getting progressively more short of breath. The tumor has been documented as enlarging. I offered her the opportunity to go to the hospital, but she declined, and then came in when she became more short of breath. REVIEW OF SYSTEMS: She has had no headaches, neurologic problems, hemoptysis, heart disease, abdominal pain, renal failure, etc. She does have diabetes mellitus. Past medical history, family history, and personal and social histories are unremarkable and noncontributory otherwise. She is a heavy smoker and she does have a seizure disorder. PHYSICAL EXAMINATION: Her blood pressure is 138/78 with a pulse of 92, respirations of 40, and she is afebrile. In general she appeared to be chronically ill and overweight. Head, ears, eyes, nose, mouth and throat were normal. Chest demonstrated poor breath sounds on the right. There were occasional rales and rhonchi on the right as well. Cardiac exam demonstrated sinus tachycardia. Abdomen was soft and protuberant. Extremities were normal. Neurologically she was intact. She is admitted to the hospital with the diagnoses: 1. Intractable right chest pain secondary to expanding carcinoma of the lung. 2. Increasing shortness of breath. 3. Chronic obstructive pulmonary disease. 4. Seizure disorder. 5. Obesity. PLAN: 1. Bed rest. 2. IV fluids. 3. Analgesia. 4. Consult with Oncology. MMODL / IJN: [id number] /
[2019-02-25] MEDS: oxyCODONE-APAP 10-325MG 1 EACH TAB PO PRN ×4 (00:13→11:59)
[2019-02-25] MEDS: ONDANSETRON 4 MG TAB PO PRN (06:03)
[2019-02-25] MEDS: PHENYTOIN SODIUM EXTENDED 100 MG CAP PO SCH ×2 (08:05→20:04)
[2019-02-25] MEDS: FAMOTIDINE 20 MG TAB PO SCH (08:05)
[2019-02-25] MEDS: METOPROLOL TARTRATE 12.5 MG TAB PO SCH ×2 (08:05→20:04)
[2019-02-25] MEDS: IPRATROPIUM-ALBUTEROL 3 ML NEB INHALATION SCH ×4 (08:15→20:24)
[2019-02-25] MEDS: PSYLLIUM HUSK 100% 6 GM PACKET PO SCH (10:35)
[2019-02-25] MEDS: MAGNESIUM HYDROXIDE 2,400 MG/10 ML CUP PO PRN (10:36)
[2019-02-25] MEDS: SENNOSIDES-DOCUSATE SODIUM 1 EACH TAB PO SCH ×2 (12:00→20:04)
--- NOTE | 2019-02-25 12:06 | P.PN ---
Subjective Progress Note Date: 02/25/19 Principal diagnosis: Acute Hypoxic Respiratory Failure Patients Oxygen level low again overnight in 80s, She still complains of chest pain. i have asked Pulmonary to assess patient as she is still unsure on chemo although her status is not improving. Objective - Vital Signs Vital signs: Vital Signs Temp 98.3 F 02/25/19 11:36 Pulse 92 02/25/19 11:36 Resp 18 02/25/19 11:36 BP 110/63 02/25/19 11:36 Pulse Ox 84 L 02/25/19 08:17 Intake & Output 02/24/19 02/25/19 02/25/19 18:59 06:59 18:59 Intake Total 1260 Balance 1260 Intake: Oral 1260 Other: Voiding Method Toilet Toilet Toilet # Voids 2 1 - Exam gen: Alert and Oriented, NAD Head: NCNT Neck: Supple Lungs: Exp wheezing and diminished through all Mild increased effort Heart: Tachy, reg Abdomen: Pain Palpation RUQ, soft, ND Ext: No edema Neuro: No sensory or motor deficits. - Labs CBC & Chem 7: 02/23/19 17:40 02/24/19 07:30 Assessment and Plan Plan: Assessment and Recommendations: 1. Recurrent and Progressive Adenocarcinoma of the Lung: - Original Diagnosis in november 2017 - Status POst RML Resection, adjuvant chemo and radiation - 01/14/19 - Evidence of recurrence and metastatic cancer - Treatment Recs: Carbo/Almta/Keytruda - Patient has been contacted to schedule and has not made up mind yet if she wanted to pursue treatment. Acute Hypoxic Respiratory Failure: Improving - Maintain Oxygenation above 92% - Pulmonary Following - Discussion of Initiation of treatment versus decisions to forgo treatment PLan: - Encourage patient up and out of bed with meals and ambulate with standby assist - Re-discussed risks and benefits of chemotherapy goals - Encourage to stay adherent with PO hydration and stool softeners on narcotic medication - Pulmonary to evaluate patient - Add Fentanyl Patch - Lactulose today - Add Ativan PO for anticipatory nausea - Folic acid daily - B12 today - iniate carbo and almta today or tomorrow discussed goals of palliative care with family
[2019-02-25] MEDS ORDERED: IPRATROPIUM-ALBUTEROL 3 ML NEB INHALATION PRN (13:28)
--- NOTE | 2019-02-25 13:28 | P.CNPUL ---
History of Present Illness Consult date: 02/25/19 Requesting physician: Abdirashid Hagen Reason for consult: dyspnea, chest pain Chief complaint: Dyspnea, chest discomfort History of present illness: This is a 58-year-old white female patient of Dr. Hagen, with history of adenocarcinoma of the lung, status post right middle lung resection, 2 negative hilar lymph nodes. Patient underwent radiation and chemotherapy, one cycle of cisplatin and Alimta. She has been following with Dr. Sewell, most recent computed tomography scan on 01/14/2019 revealed recurrent and progressive disease. Patient was started on chemotherapy with carboplatin, Alimta and Keytruda. Patient was not sure she wanted to proceed with treatment because her previous chemotherapy had made her very sick. She presents to the hospital on 02/23/2019 with complaints of chest pain and shortness of breath. She was seen by her PCP in the office prior to coming into the hospital and she was noted to be hypoxemic as was instructed to go to the hospital, however the patient initially refused she wanted to spend Mother's Day with her family. On Sunday the family was able to convince the patient to come into the emergency room. She states she had been short of breath ever since her lobectomy and initial diagnosis of cancer back in November 2017. She also admits to chronic right upper quadrant abdominal pain, and right chest discomfort. Denies any fever or chills, no nausea or vomiting. No calf pain, no tenderness. Chest CTA was completed on admission and showed no evidence of pulmonary embolism. Showed extensive mediastinal adenopathy that appears increased compared to the last computed tomography scan on 01/14/2019. He was extensive pleural thickening and consolidation in the right lower lobe and pleural fluid that has progressed, these findings are consistent with progression of underlying tumor. Stable left esophageal mass. Lab work showed white blood cell count of 11.5, hemoglobin of 12.6, sodium of 134, potassium is 4.5, chloride is 97, CO2 is 27, B1 is 11 creatinine 0.71, troponin was positive at 0.036, proBNP was 267, alk phos was 127, ALT was 28, and AST was 43. Afebrile, patient is 84% on room air, she removes oxygen frequently, but does not seem to be in any distress, does not seem to be symptomatic with that. Hemodynamically stable, afebrile. He was started on Percocet for pain control, has been started on breathing treatments, lung sounds reveal very diminished air entry on the right side, and there are expiratory wheezes with mild increased effort. Review of Systems All systems: negative Constitutional: Denies chills, Denies fever Eyes: denies blurred vision, denies pain Ears, nose, mouth and throat: Denies headache, Denies sore throat Cardiovascular: Reports chest pain, Denies shortness of breath Respiratory: Reports dyspnea, Denies cough Gastrointestinal: Denies abdominal pain, Denies diarrhea, Denies nausea, Denies vomiting Genitourinary: Denies dysuria, Denies hematuria Musculoskeletal: Denies myalgias Integumentary: Denies pruritus, Denies rash Neurological: Denies numbness, Denies weakness Psychiatric: Denies anxiety, Denies depression Endocrine: Denies fatigue, Denies weight change Past Medical History Past Medical History: Cancer, Seizure Disorder Additional Past Medical History / Comment(s): H. pylori; UTI; Whipple's Disease, History of Any Multi-Drug Resistant Organisms: None Reported Past Surgical History: Cholecystectomy Additional Past Surgical History / Comment(s): cataract, lymphnodectomy, cancer removed from lung, Past Psychological History: No Psychological Hx Reported Smoking Status: Former smoker Past Alcohol Use History: None Reported Past Drug Use History: None Reported - Past Family History Father Family Medical History: Cancer Additional Family Medical History / Comment(s): LUNG Mother Family Medical History: Cancer, Coronary Artery Disease (CAD), Diabetes Mellitus Additional Family Medical History / Comment(s): LUNG CA Medications and Allergies Home Medications Medication Instructions Recorded Confirmed Type PHENobarbital [Luminal] 32.4 mg PO DAILY 03/16/14 02/23/19 History Phenytoin Sodium Extended 200 mg PO BID 03/16/14 02/23/19 History [Dilantin] PHENobarbital 64.8 mg PO HS 09/07/17 02/23/19 History Metoprolol Tartrate 12.5 mg PO BID 11/15/17 02/23/19 History Albuterol Nebulized [Ventolin 2.5 mg INHALATION RT-Q6H PRN 02/23/19 02/23/19 History Nebulized] Famotidine 40 mg PO DAILY 02/23/19 02/23/19 History HYDROcodone/APAP 10-325MG [[place] 1 tab PO Q4HR PRN 02/23/19 02/23/19 History 10-325] Ondansetron [Zofran] 4 mg PO Q4H PRN 02/23/19 02/23/19 History Allergies Allergy/AdvReac Type Severity Reaction Status Date / Time Penicillins Allergy Rash/Hives Verified 02/23/19 17:26 codeine AdvReac Abdominal Verified 02/23/19 17:26 Pain ranitidine HCl [From Zantac] AdvReac interacts Verified 02/23/19 17:26 with dilantin Physical Exam Vitals: Vital Signs Temp Pulse Pulse Resp BP Pulse Ox 02/25/19 11:36 98.3 F 92 18 110/63 02/25/19 11:35 100 02/25/19 11:25 100 02/25/19 08:27 96 02/25/19 08:17 94 84 L 02/25/19 05:00 98.1 F 84 18 110/69 95 02/24/19 22:00 98.6 F 95 17 89/62 97 02/24/19 20:59 96 02/24/19 20:49 96 95 02/24/19 16:57 92 02/24/19 16:44 92 Intake and Output 02/24/19 02/25/19 02/25/19 22:59 06:59 14:59 Intake Total 720 540 Balance 720 540 Intake: Oral 720 540 Other: Voiding Method Toilet Toilet # Voids 1 1 GENERAL EXAM: Alert, pleasant, 58-year-old female, comfortable in no apparent distress. HEAD: Normocephalic/atraumatic. EYES: Normal reaction of pupils, equal size. Conjunctiva pink, sclera white. NOSE: Clear with pink turbinates. THROAT: No erythema or exudates. NECK: No masses, no JVD, no thyroid enlargement, no adenopathy. CHEST: No chest wall deformity. Symmetrical expansion. LUNGS: Equal air entry with diminished breath sounds on the right side, with the scattered expiratory wheezes CVS: Regular rate and rhythm, normal S1 and S2, no gallops, no murmurs, no rubs ABDOMEN: Soft, nontender. No hepatosplenomegaly, normal bowel sounds, no guarding or rigidity. EXTREMITIES: No clubbing, no edema, no cyanosis, 2+ pulses and upper and lower extremities. MUSCULOSKELETAL: Muscle strength and tone normal. SPINE: No scoliosis or deformity SKIN: No rashes CENTRAL NERVOUS SYSTEM: Alert and oriented -3. No focal deficits, tone is normal in all 4 extremities. PSYCHIATRIC: Alert and oriented -3. Appropriate affect. Intact judgment and insight. Results - Laboratory Findings CBC and BMP: 02/23/19 17:40 02/24/19 07:30 PT/INR, D-dimer PT 10.4 sec (9.0-12.0) 02/23/19 17:40 INR 1.0 (<1.2) 02/23/19 17:40 Abnormal lab findings: Abnormal Labs 02/23/19 02/23/19 05 17:40 17:40 17:40 WBC 11.5 H Plt Count 520 H Neutrophils # 9.2 H APTT 21.9 L Sodium 134 L Chloride 97 L Creatinine Glucose AST 43 H Alkaline Phosphatase 127 H Troponin I Total Protein 8.4 H 02/23/19 02/24/19 17:40 07:30 WBC Plt Count Neutrophils # APTT Sodium 133 L Chloride Creatinine 0.45 L Glucose 110 H AST 41 H Alkaline Phosphatase Troponin I 0.036 H* Total Protein 8.3 H - Diagnostic Findings CT scan - chest: report reviewed, image reviewed Additional studies: EKG reviewed Assessment and Plan Plan: Assessment: #1. Recurrent progressive adenocarcinoma of the lung #2. History of adenocarcinoma of the right lung status post right lower lobe resection with adjuvant chemo and radiation #3. Poor medical compliance #4. Former nicotine abuse, currently in remission, carries over 50 years of smoking history of 1-1,5 packs a day #5. Acute hypoxic respiratory failure related to recurrence of lung cancer #6. Seizure disorder #7. Glaucoma #8. GERD/reflux #9. History of mild COPD, with an unknown baseline FEV1 as the patient never followed up in the office Plan: We'll continue nebulized bronchodilators, CTA chest has been reviewed by Dr. Bravo, showing extensive mediastinal adenopathy, pleural thickening consolidation in the right lower lobe and pleural fluid likely related to progression of lung malignancy. No fever or chills, no significant leukocyto sis. Patient is still very undecided on whether or not she wants chemotherapy, she understands the implications of omitting therapy, and she is asking how her longevity would be improved with chemo and if she would be able to tolerate it. We will add Pulmicort and Perforomist, and IV steroids to optimize her lung function. Overall prognosis is guarded I performed a history & physical examination of the patient and discussed their management with my nurse practitioner, Emily Barone. I reviewed the nurse practitioner's note and agree with the documented findings and plan of care. Lung sounds are positive for exp wheezes. The findings and the impression was discussed with the patient. I attest to the documentation by the nurse practitioner. Time with Patient: Greater than 30
[2019-02-25] MEDS: methylPREDNISolone SOD SUCCI 125 MG/2 ML VIAL IV SCH ×2 (14:45→18:09)
--- NOTE | 2019-02-25 15:10 | PN ---
PROGRESS NOTE DATE OF SERVICE: 02/24/2019 CHIEF COMPLAINT: Shortness of breath of breath and intractable right-sided chest pain. HISTORY OF PRESENT ILLNESS: This lady's pain is quite severe. Breathing is improved with the oxygen. PHYSICAL EXAM: She has very poor breath sounds at the right side of the chest with scattered rales. Left chest is clear. Cardiac exam is normal. IMPRESSION: 1. 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 2. Exacerbation of chronic obstructive pulmonary disease. PLAN: 1. Increase analgesic regimen. 2. Wait for Oncology recommendations. MMODL / IJN: [id number] /
[2019-02-25] MEDS ORDERED: LACTULOSE 20 GM/30 ML CUP PO ONE (15:57)
[2019-02-25] MEDS: MORPHINE SULFATE 4 MG/ML SYRINGE IV PRN (18:08)
[2019-02-25] MEDS ORDERED: CYANOCOBALAMIN 1,000 MCG/ML 1 ML VIAL IM ONE (19:00)
[2019-02-25] MEDS: PHENobarbital 32.4 MG TAB PO SCH (20:03)
[2019-02-25] MEDS: HYDROcodone/APAP 10-325MG 1 EACH TAB PO PRN (20:04)
[2019-02-25] MEDS: FORMOTEROL FUMARATE 20 MCG/2 ML NEBU INHALATION SCH (20:24)
[2019-02-25] MEDS: BUDESONIDE 1 MG/2 ML NEBU INHALATION SCH (20:24)
--- NOTE | 2019-02-25 21:42 | PN ---
PROGRESS NOTE DATE OF SERVICE: 02/25/2019 CHIEF COMPLAINT: Advancing adenocarcinoma of the lung in the right chest wall. HISTORY OF PRESENT ILLNESS: This lady is not doing particularly well. The pain is not well controlled. She is being talked to by Oncology about further chemotherapy, but she is undecided. PHYSICAL EXAM: Breath sounds are poor on the right side with decreased sounds, rales and rhonchi throughout. Left side is more clear. IMPRESSION: Advancing adenocarcinoma of the right lung and chest wall. PLAN: I await her decision regarding further treatment. She can probably go home soon and will increase her analgesic program at that time. MMODL / IJN: [id number] /
[2019-02-26] MEDS ORDERED: HYDROcodone/APAP 10-325MG 1 EACH TAB ONE (03:05)
[2019-02-26] MEDS ORDERED: ONDANSETRON 4 MG TAB ONE (03:05)
[2019-02-26] MEDS ORDERED: methylPREDNISolone SOD SUCCI 125 MG/2 ML VIAL ONE (03:05)
[2019-02-26] MEDS: methylPREDNISolone SOD SUCCI 125 MG/2 ML VIAL IV SCH ×5 (05:05→23:10)
[2019-02-26] MEDS: FAMOTIDINE 20 MG TAB PO SCH (08:33)
[2019-02-26] MEDS: METOPROLOL TARTRATE 12.5 MG TAB PO SCH ×2 (08:34→21:58)
[2019-02-26] MEDS: PSYLLIUM HUSK 100% 6 GM PACKET PO SCH (08:35)
[2019-02-26] MEDS: PHENYTOIN SODIUM EXTENDED 100 MG CAP PO SCH ×2 (08:35→21:59)
[2019-02-26] MEDS: SENNOSIDES-DOCUSATE SODIUM 1 EACH TAB PO SCH ×2 (08:35→21:59)
[2019-02-26] MEDS: BUDESONIDE 1 MG/2 ML NEBU INHALATION SCH ×2 (09:04→19:57)
[2019-02-26] MEDS: FORMOTEROL FUMARATE 20 MCG/2 ML NEBU INHALATION SCH ×2 (09:04→19:57)
[2019-02-26] MEDS: IPRATROPIUM-ALBUTEROL 3 ML NEB INHALATION SCH ×4 (09:04→19:57)
[2019-02-26] MEDS: HYDROcodone/APAP 10-325MG 1 EACH TAB PO PRN ×3 (10:35→21:57)
[2019-02-26] MEDS: FOLIC ACID 1 MG TAB PO SCH (11:55)
[2019-02-26] MEDS: POLYETHYLENE GLYCOL 3350 17 GM POWD.PACK PO SCH (11:55)
[2019-02-26] MEDS: PANTOPRAZOLE 40 MG/10 ML VIAL IVP SCH ×2 (12:20→22:00)
--- NOTE | 2019-02-26 12:36 | P.PN ---
Subjective Progress Note Date: 02/26/19 Principal diagnosis: Acute Hypoxic Respiratory Failure Plan is to move forward with one round of chemotherapy today, although patient has very difficult intravenous access, will obtain picc as she is unsure of continuing on treatment. Objective - Vital Signs Vital signs: Vital Signs Temp 98.3 F 02/26/19 05:00 Pulse 96 02/26/19 10:47 Resp 16 02/26/19 05:00 BP 98/61 02/26/19 05:00 Pulse Ox 94 L 02/26/19 05:00 Intake & Output 02/25/19 02/26/19 02/26/19 18:59 06:59 18:59 Intake Total 10 900 Balance 10 900 Intake: IV 10 0.9 10 Oral 900 Other: Voiding Method Toilet Toilet # Voids 1 - Exam gen: Alert and Oriented, NAD Head: NCNT Neck: Supple Lungs: Exp wheezing and diminished through all Mild increased effort Heart: Tachy, reg Abdomen: Pain Palpation RUQ, soft, ND Ext: No edema Neuro: No sensory or motor deficits. - Labs CBC & Chem 7: 02/23/19 17:40 02/24/19 07:30 Assessment and Plan Plan: Assessment and Recommendations: Recurrent and Progressive Adenocarcinoma of the Lung: - Original Diagnosis in november 2017 - Status POst RML Resection, adjuvant kartik mo and radiation - 01/14/19 - Evidence of recurrence and metastatic cancer - Treatment Recs: Carbo/Almta/Keytruda - Patient has been contacted to schedule and has not made up mind yet if she wanted to pursue treatment. Acute Hypoxic Respiratory Failure: Improving - Maintain Oxygenation above 92% - Pulmonary Following - Discussion of Initiation of treatment versus decisions to forgo treatment Constipation: - Incresaed Bowel regimen and patient to move bowels prior to starting chemo - She is very apprehensive to begin chemotherapy secondary to prior attempt at chemo she was very nauseated and sick PLan: -Plan for Carboplatin and ALmta today, we will initiate Alison immunotherapy on cycle 2 as an outpatient - Consult placed today for PICC line as patient has very poor venous access - Folic acid daily while on Alimta as well as a B12 injection today and every 6 weeks through treatment - She will be seen in office next week to follow-up on posttreatment side effects - CBC CMP daily on chemotherapy we will also draw a baseline TSH cortisol level - All potential side effects, risks and benefits discussed with patient. - Anticipatory Nausea for chemotherapy, Add prn ativan. Physician Attestation: I have performed the full physical examination and reviewed the full history of this patient, as well as pertinent findings. I have created the compled impression and recommendations. I agree with the above dictation by CHARMAINE Roman. This dictation has been written as a scribe.
--- NOTE | 2019-02-26 12:42 | XR ---
EXAMINATION TYPE: XR abdomen acute w cxr DATE OF EXAM: 02/26/2019 COMPARISON: NONE HISTORY: Advanced adenocarcinoma in the right lung extending into the chest wall. Constipation. TECHNIQUE: Single view of the chest and 2 views of the abdomen were obtained FINDINGS: Right basilar consolidation and right pleural effusion are seen representing the patient's known adenocarcinoma with surrounding atelectasis and small pleural effusion. Left lung is well aerat ed. Cardia mediastinal silhouette is partially obscured but appears within normal limits. Cholecystectomy clips are seen. There is mildly dilated small bowel measuring up to 3.6 cm. Moderate amount of right hemicolonic stool is seen with gaseous distention of the nondilated large bowel. Sing le colonic air-fluid level at the splenic flexure is present on the upright view. Formed stool is see n throughout the sigmoid colon and near the rectal vault. Levoscoliosis of the thoracolumbar junction may be positional in nature. Phleboliths are seen within the pelvis. Mild atherosclerosis of the abd ominal aorta. Surgical clip or suture in the left mid abdomen is present. No pneumoperitoneum. IMPRESSION: 1. Moderate fecal stasis throughout the nondilated colon. Mildly dilated centralized loops of small b owel likely represent small bowel ileus secondary to the increased colonic transit time. 2. Right lower lung consolidation represents patient's known lung carcinoma, small pleural effusion a nd probable surrounding atelectasis.
--- NOTE | 2019-02-26 13:32 | P.PN ---
Subjective Progress Note Date: 02/26/19 Principal diagnosis: Progress of adenocarcinoma of the right lung This is a 58-year-old white female patient of Dr. Hagen, with history of adenocarcinoma of the lung, status post right middle lung resection, 2 negative hilar lymph nodes. Patient underwent radiation and chemotherapy, one cycle of cisplatin and Alimta. She has been following with Dr. Sewell, most recent comp uted tomography scan on 01/14/2019 revealed recurrent and progressive disease. Patient was started on chemotherapy with carboplatin, Alimta and Keytruda. Patient was not sure she wanted to proceed with treatment because her previous chemotherapy had made her very sick. She presents to the hospital on 02/23/2019 with complaints of chest pain and shortness of breath. She was seen by her PCP in the office prior to coming into the hospital and she was noted to be hypoxemic as was instructed to go to the hospital, however the patient initially refused she wanted to spend Mother's Day with her family. On Sunday the family was able to convince the patient to come into the emergency room. She states she had been short of breath ever since her lobectomy and initial diagnosis of cancer back in November 2017. She also admits to chronic right upper quadrant abdominal pain, and right chest discomfort. Denies any fever or chills, no nausea or vomiting. No calf pain, no tenderness. Chest CTA was completed on admission and showed no evidence of pulmonary embolism. Showed extensive mediastinal adenopathy that appears increased compared to the last computed tomography scan on 01/14/2019. He was extensive pleural thickening and consolidation in the right lower lobe and pleural fluid that has progressed, these findings are consistent with progression of underlying tumor. Stable left esophageal mass. Lab work showed white blood cell count of 11.5, hemoglobin of 12.6, sodium of 134, potassium is 4.5, chloride is 97, CO2 is 27, B1 is 11 creatinine 0.71, troponin was positive at 0.036, proBNP was 267, alk phos was 127, ALT was 28, and AST was 43. Afebrile, patient is 84% on room air, she removes oxygen frequently, but does not seem to be in any distress, does not seem to be symptomatic with that. Hemodynamically stable, afebrile. He was started on Percocet for pain control, has been started on breathing treatments, lung sounds reveal very diminished air entry on the right side, and there are expiratory wheezes with mild increased effort. The patient is seen today 02/26/2018 in follow-up on the oncology floor. She is currently resting comfortably in bed. Earlier she had been having issues with shortness of breath wheezing and congestion. He had been coughing up some clear phlegm now. She is maintaining O2 saturations in the 90s on 2 L/m per nasal cannula. She's afebrile. Remains on DuoNeb's and IV Solu-Medrol. The plan is for PICC line today and possible initiation of a another round of chemotherapy. Objective - Vital Signs Vital signs: Vital Signs Temp 98.3 F 02/26/19 12:00 Pulse 72 02/26/19 12:00 Resp 26 H 02/26/19 12:00 BP 93/60 02/26/19 12:00 Pulse Ox 96 02/26/19 12:00 Intake & Output 02/25/19 02/26/19 02/26/19 18:59 06:59 18:59 Intake Total 10 900 Balance 10 900 Intake: IV 10 0.9 10 Oral 900 Other: Voiding Method Toilet Toilet # Voids 1 - Exam GENERAL EXAM: Alert, pleasant, 58-year-old female, comfortable in no apparent distress. On 2 L nasal cannula. HEAD: Normocephalic/atraumatic. EYES: Normal reaction of pupils, equal size. Conjunctiva pink, sclera white. NOSE: Clear with pink turbinates. THROAT: No erythema or exudates. NECK: No masses, no JVD, no thyroid enlargement, no adenopathy. CHEST: No chest wall deformity. Symmetrical expansion. LUNGS: Equal air entry with diminished breath sounds on the right side, with the scattered expiratory wheezes CVS: Regular rate and rhythm, normal S1 and S2, no gallops, no murmurs, no rubs ABDOMEN: Soft, nontender. No hepatosplenomegaly, normal bowel sounds, no guarding or rigidity. EXTREMITIES: No clubbing, no edema, no cyanosis, 2+ pulses and upper and lower extremities. MUSCULOSKELETAL: Muscle strength and tone normal. SPINE: No scoliosis or deformity SKIN: No rashes CENTRAL NERVOUS SYSTEM: No focal deficits, tone is normal in all 4 extremities. PSYCHIATRIC: Alert and oriented -3. Appropriate affect. Intact judgment and insight. - Labs CBC & Chem 7: 02/23/19 17:40 02/24/19 07:30 Assessment and Plan Assessment: Assessment: #1. Recurrent progressive adenocarcinoma of the lung #2. History of adenocarcinoma of the right lung status post right lower lobe resection with adjuvant chemo and radiation #3. Poor medical compliance #4. Former nicotine abuse, currently in remission, carries over 50 years of smoking history of 1-1,5 packs a day #5. Acute hypoxic respiratory failure related to recurrence of lung cancer #6. Seizure disorder #7. Glaucoma #8. GERD/reflux #9. History of mild COPD, with an unknown baseline FEV1 as the patient never followed up in the office Plan: The patient was seen and evaluated by Dr. Bravo. She is stable from the pulmonary standpoint. Continue bronchodilators and IV Solu-Medrol. The plan is for PICC line insertion and possible initiation of a another round of chemotherapy. The patient seems to be agreeable at this point. We'll continue to follow. I, the cosigning physician, performed a history & physical examination of the patient. Lungs sounds with rhonchi more so on the right lung. Maintaining good O2 saturations in the 90s on 2 L/m per nasal cannula. I discussed the assessment and plan of care with my nurse practitioner, Laney Post. I attest to the above note as dictated by her.
[2019-02-26] MEDS ORDERED: LIDOCAINE 1% INJ 10MG/ML (20 ML MDV) ONE (14:25)
[2019-02-26] MEDS ORDERED: LIDOCAINE 1% INJ 10MG/ML (20 ML MDV) SQ ONE (14:44)
[2019-02-26] MEDS: PHENobarbital 32.4 MG TAB PO SCH (21:59)
--- NOTE | 2019-02-26 22:05 | PN ---
PROGRESS NOTE DATE OF SERVICE: 02/26/2019 CHIEF COMPLAINT: Recurrent carcinoma of the lung. HISTORY OF PRESENT ILLNESS: This lady decided to go ahead with chemotherapy, and it will be started today. It is not sure how long she will be in the hospital. Pain continues. PHYSICAL EXAMINATION: Breath sounds are diminished at the right base. There are occasional rales and rhonchi. Cardiac exam is normal. Abdomen is soft, nontender. IMPRESSION: Metastatic carcinoma of the lung. PLAN: She will start chemotherapy today. Will continue to work with her pain. MMODL / IJN: [id number] /
[2019-02-27] MEDS: HYDROcodone/APAP 10-325MG 1 EACH TAB PO PRN ×3 (03:40→14:41)
[2019-02-27] MEDS: methylPREDNISolone SOD SUCCI 125 MG/2 ML VIAL IV SCH ×3 (05:32→18:02)
[2019-02-27] MEDS: FORMOTEROL FUMARATE 20 MCG/2 ML NEBU INHALATION SCH ×2 (07:54→20:08)
[2019-02-27] MEDS: IPRATROPIUM-ALBUTEROL 3 ML NEB INHALATION SCH ×4 (07:54→20:08)
[2019-02-27] MEDS: BUDESONIDE 1 MG/2 ML NEBU INHALATION SCH ×2 (07:54→20:08)
[2019-02-27] MEDS: METOPROLOL TARTRATE 12.5 MG TAB PO SCH ×2 (08:28→22:17)
[2019-02-27] MEDS: SENNOSIDES-DOCUSATE SODIUM 1 EACH TAB PO SCH ×2 (08:28→22:18)
[2019-02-27] MEDS: FAMOTIDINE 20 MG TAB PO SCH (08:28)
[2019-02-27] MEDS: PHENYTOIN SODIUM EXTENDED 100 MG CAP PO SCH ×2 (08:29→22:18)
[2019-02-27] MEDS: FOLIC ACID 1 MG TAB PO SCH (08:29)
[2019-02-27] MEDS: PANTOPRAZOLE 40 MG/10 ML VIAL IVP SCH ×2 (08:42→22:19)
[2019-02-27] MEDS: POLYETHYLENE GLYCOL 3350 17 GM POWD.PACK PO SCH (08:43)
--- NOTE | 2019-02-27 11:58 | IR ---
EXAMINATION TYPE: IR cvc insert >=5 years DATE OF EXAM: 02/26/2019 COMPARISON: NONE CLINICAL HISTORY: Adenocarcinoma Needs long-term intravenous access for chemotherapy, therapy. PROCEDURE: After informed consent, the skin overlying the left brachial vein was localized with ultrasound and n oted to be compressible and patent. An ultrasound image was obtained and submitted on the patient's chart. The overlying skin was prepped and draped and Lidocaine was used for local anesthesia. A ski n swapna was made with a scalpel. Access was gained to the vein under ultrasound guidance with a 21 ga uge needle and a 0.018 inch wire was advanced. Access site was dilated with Peel-Away sheath and cat heter tailored to the appropriate length and advanced such that the distal tip is at the cavoatrial j unction. Spot image was obtained verifying placement. Catheter was fixed to the skin and a sterile dressing was placed following hemostasis. Catheter was aspirated and flushed with saline. Patient w as discharged in stable condition without complication.Maximal barrier technique is utilized. Ultras ound image is documented on the chart. Ultrasound used with sterile technique. Fluoro time and fluoroscopic images submitted to document procedure: 75 intraoperative C-arm images, 0.6 minutes fluoroscopy time IMPRESSION: STATUS POST ULTRASOUND AND FLUOROSCOPIC GUIDED PICC LINE PLACEMENT, READY FOR USE. THIS PROCEDURE WAS PERFORMED BY THE UNDERSIGNED.
[2019-02-27] MEDS: MORPHINE SULFATE 4 MG/ML SYRINGE IV PRN ×2 (12:08→20:48)
--- NOTE | 2019-02-27 12:43 | P.PN ---
Subjective Progress Note Date: 02/27/19 Principal diagnosis: Progress of adenocarcinoma of the right lung This is a 58-year-old white female patient of Dr. Hagen, with history of adenocarcinoma of the lung, status post right middle lung resection, 2 negative hilar lymph nodes. Patient underwent radiation and chemotherapy, one cycle of cisplatin and Alimta. She has been following with Dr. Sewell, most recent comp uted tomography scan on 01/14/2019 revealed recurrent and progressive disease. Patient was started on chemotherapy with carboplatin, Alimta and Keytruda. Patient was not sure she wanted to proceed with treatment because her previous chemotherapy had made her very sick. She presents to the hospital on 02/23/2019 with complaints of chest pain and shortness of breath. She was seen by her PCP in the office prior to coming into the hospital and she was noted to be hypoxemic as was instructed to go to the hospital, however the patient initially refused she wanted to spend Mother's Day with her family. On Sunday the family was able to convince the patient to come into the emergency room. She states she had been short of breath ever since her lobectomy and initial diagnosis of cancer back in November 2017. She also admits to chronic right upper quadrant abdominal pain, and right chest discomfort. Denies any fever or chills, no nausea or vomiting. No calf pain, no tenderness. Chest CTA was completed on admission and showed no evidence of pulmonary embolism. Showed extensive mediastinal adenopathy that appears increased compared to the last computed tomography scan on 01/14/2019. He was extensive pleural thickening and consolidation in the right lower lobe and pleural fluid that has progressed, these findings are consistent with progression of underlying tumor. Stable left esophageal mass. Lab work showed white blood cell count of 11.5, hemoglobin of 12.6, sodium of 134, potassium is 4.5, chloride is 97, CO2 is 27, B1 is 11 creatinine 0.71, troponin was positive at 0.036, proBNP was 267, alk phos was 127, ALT was 28, and AST was 43. Afebrile, patient is 84% on room air, she removes oxygen frequently, but does not seem to be in any distress, does not seem to be symptomatic with that. Hemodynamically stable, afebrile. He was started on Percocet for pain control, has been started on breathing treatments, lung sounds reveal very diminished air entry on the right side, and there are expiratory wheezes with mild increased effort. The patient is seen today 02/26/2018 in follow-up on the oncology floor. She is currently resting comfortably in bed. Earlier she had been having issues with shortness of breath wheezing and congestion. He had been coughing up some clear phlegm now. She is maintaining O2 saturations in the 90s on 2 L/m per nasal cannula. She's afebrile. Remains on DuoNeb's and IV Solu-Medrol. The plan is for PICC line today and possible initiation of a another round of chemotherapy. The patient is seen today 02/27/2019 in follow-up on the oncology floor. She is currently sitting up at the bedside. Awake and alert in no acute distress. She is maintaining O2 saturations in the 90s on 3 L/m per nasal cannula. She's afebrile. Hemodynamically stable. She did have a PICC line placed for pending chemotherapy. Carboplatin has been ordered. Objective - Vital Signs Vital signs: Vital Signs Temp 98.2 F 02/27/19 05:00 Pulse 98 02/27/19 12:37 Resp 16 02/27/19 05:00 BP 110/74 02/27/19 05:00 Pulse Ox 97 02/27/19 05:00 Intake & Output 02/26/19 02/27/19 02/27/19 18:59 06:59 18:59 Intake Total 790 Balance 790 Intake: Oral 790 Other: Voiding Method Toilet Toilet # Voids 1 2 - Exam GENERAL EXAM: Alert, pleasant, 58-year-old female, comfortable in no apparent distress. On 3 L nasal cannula. HEAD: Normocephalic/atraumatic. EYES: Normal reaction of pupils, equal size. Conjunctiva pink, sclera white. NOSE: Clear with pink turbinates. THROAT: No erythema or exudates. NECK: No masses, no JVD, no thyroid enlargement, no adenopathy. CHEST: No chest wall deformity. Symmetrical expansion. LUNGS: Equal air entry with diminished breath sounds on the right side, with the scattered expiratory wheezes CVS: Regular rate and rhythm, normal S1 and S2, no gallops, no murmurs, no rubs ABDOMEN: Soft, nontender. No hepatosplenomegaly, normal bowel sounds, no guarding or rigidity. EXTREMITIES: No clubbing, no edema, no cyanosis, 2+ pulses and upper and lower extremities. MUSCULOSKELETAL: Muscle strength and tone normal. SPINE: No scoliosis or deformity SKIN: No rashes CENTRAL NERVOUS SYSTEM: No focal deficits, tone is normal in all 4 extremities. PSYCHIATRIC: Alert and oriented -3. Appropriate affect. Intact judgment and insight. - Labs CBC & Chem 7: 02/23/19 17:40 02/24/19 07:30 Assessment and Plan Assessment: Assessment: #1. Recurrent progressive adenocarcinoma of the lung, PICC line placed. Plan is for carboplatin to start today. #2. History of adenocarcinoma of the right lung status post right lower lobe resection with adjuvant chemo and radiation #3. Poor medical compliance #4. Former nicotine abuse, currently in remission, carries over 50 years of smoking history of 1-1,5 packs a day #5. Acute hypoxic respiratory failure related to recurrence of lung cancer #6. Seizure disorder #7. Glaucoma #8. GERD/reflux #9. History of mild COPD, with an unknown baseline FEV1 as the patient never followed up in the office Plan: The patient was seen and evaluated by Dr. Bravo. She did receive a PICC line in the plan is for carboplatin start today. We will follow the patient on an as- needed basis. I, the cosigning physician, performed a history & physical examination of the patient. Lungs sounds with rhonchi more so on the right lung. Maintaining good O2 saturations in the 90s on 3 L/m per nasal cannula. I discussed the a ssessment and plan of care with my nurse practitioner, Laney Post. I attest to the above note as dictated by her.
[2019-02-27] MEDS: LORazepam 0.5 MG TAB PO PRN (13:18)
[2019-02-27] MEDS ORDERED: DEXAMETHASONE SOD PHOSPHATE 10 MG/ML 1 ML VIAL IV ONE (13:30)
[2019-02-27] MEDS ORDERED: FAMOTIDINE 20 MG/2 ML VIAL IV ONE (13:30)
[2019-02-27] MEDS ORDERED: ONDANSETRON 16 MG in SODIUM CHLORIDE 0.9% 50 ML IVPB ONE (13:30)
[2019-02-27] MEDS ORDERED: CYANOCOBALAMIN 1,000 MCG/ML 1 ML VIAL IM ONE (13:30)
[2019-02-27] MEDS ORDERED: PEMETREXED DISODIUM IV ONE ×2 (14:00→17:00)
[2019-02-27] MEDS ORDERED: SODIUM CHLORIDE 0.9% IV ONE ×4 (14:00→17:00)
[2019-02-27] MEDS ORDERED: CARBOPLATIN IV ONE ×2 (14:30→17:00)
[2019-02-27] MEDS ORDERED: BISACODYL 5 MG TABLET.DR PO STA (15:01)
--- NOTE | 2019-02-27 15:04 | P.PN ---
Subjective Progress Note Date: 02/27/19 Principal diagnosis: Acute Hypoxic Respiratory Failure Small BM today, still with complaints of pain but apparently was a little more lethargic yesterday. Abdominal Serious showed stool throughout colon despite aggressive bowel regimen. No nausea. alert and awake today Objective - Vital Signs Vital signs: Vital Signs Temp 98.7 F 02/27/19 14:27 Pulse 83 02/27/19 14:27 Resp 20 02/27/19 14:27 BP 106/71 02/27/19 14:27 Pulse Ox 95 02/27/19 14:27 Intake & Output 02/26/19 02/27/19 02/27/19 18:59 06:59 18:59 Intake Total 790 Balance 790 Intake: Oral 790 Other: Voiding Method Toilet Toilet # Voids 1 2 - Exam gen: Alert and Oriented, NAD Head: NCNT Neck: Supple Lungs: Exp wheezing and diminished through all Mild increased effort Heart: Tachy, reg Abdomen: Pain Palpation RUQ, soft, ND Ext: No edema Neuro: No sensory or motor deficits. - Labs CBC & Chem 7: 02/23/19 17:40 02/24/19 07:30 Assessment and Plan Plan: Assessment and Recommendations: Recurrent and Progressive Adenocarcinoma of the Lung: - Original Diagnosis in november 2017 - Status POst RML Resection, adjuvant chemo and radiation - 01/14/19 - Evidence of recurrence and metastatic cancer - Treatment Recs: Carbo/Almta/Keytruda - Patient has been contacted to schedule and has not made up mind yet if she wanted to pursue treatment. Acute Hypoxic Respiratory Failure: Improving - Maintain Oxygenation above 92% - Pulmonary Following - Discussion of Initiation of treatment versus decisions to forgo treatment Constipation: - Incresaed Bowel regimen and patient to move bowels prior to starting chemo - She is very apprehensive to begin chemotherapy secondary to prior attempt at chemo she was very nauseated and sick PLan: -Plan for Carboplatin and ALmta today, we will initiate Keytruda immunotherapy on cycle 2 as an outpatient -Suppository x1 today - Ensure a good BM and continue aggressive bowel regimen with narcotic use - If lethargy increases again will decrease medications, although patient states her pain is not improved Physician Attestation: I have performed the full physical examination and reviewed the full history of this patient, as well as pertinent findings. I have created the compled impression and recommendations. I agree with the above dictation by CHARMAINE Roman. This dictation has been written as a scribe.
[2019-02-27 16:19] LABS: INR 0.9 (<1.2)
[2019-02-27 16:22] LABS: ALT 71 U/L (9-52); AST 98 U/L (14-36); Albumin 3.9 g/dL (3.5-5.0); Alkaline Phosphatase 106 U/L (38-126); Anion Gap 7 mmol/L; Blood Urea Nitrogen 19 mg/dL (7-17); Carbon Dioxide 27 mmol/L (22-30); Chloride 95 mmol/L (98-107); Glucose 143 mg/dL (74-99); LDH 1067 U/L (313-618); Magnesium 2.1 mg/dL (1.6-2.3); Phosphorus 3.3 mg/dL (2.5-4.5); Potassium 5.3 mmol/L (3.5-5.1); Sodium 129 mmol/L (137-145); Total Bilirubin 0.2 mg/dL (0.2-1.3); Total Protein 8.1 g/dL (6.3-8.2)
[2019-02-27 16:23] LABS: Basophils % (A) 0 %; Eosinophils % (A) 0 %; HGB 11.5 gm/dL (11.4-16.0); Lymphocytes # (A) 0.4 k/uL (1.0-4.8); Lymphocytes % (A) 3 %; MCH 29.7 pg (25.0-35.0); MCHC 31.8 g/dL (31.0-37.0); MCV 93.5 fL (80.0-100.0); Mean Platelet Volume 6.7; Monocytes # (A) 0.3 k/uL (0-1.0); Monocytes % (A) 3 %; Neutrophils # (A) 11.9 k/uL (1.3-7.7); Neutrophils % (A) 94 %; Platelet Count 363 k/uL (150-450); RBC 3.86 m/uL (3.80-5.40); RDW 14.5 % (11.5-15.5); WBC 12.7 k/uL (3.8-10.6)
[2019-02-27] MEDS: MORPHINE SULFATE ER 15 MG TABLET PO SCH (18:05)
[2019-02-27] MEDS: ONDANSETRON 4 MG TAB PO PRN (19:21)
--- NOTE | 2019-02-27 20:13 | PN ---
PROGRESS NOTE CHIEF COMPLAINT: Advanced carcinoma of the lung. HISTORY OF PRESENT ILLNESS: This lady is starting chemotherapy today. She is still having a lot of pain and will increase her analgesic program. PHYSICAL EXAM: Breath sounds are diminished on the right side. She is having splinting with breathing. IMPRESSION: 1. Advancing right-sided pulmonary neoplasm. 2. Chronic obstructive pulmonary disease. 3. Seizure disorder. PLAN: Add MS Contin 15 mg around the clock every 8 hours. MMODL / IJN: [id number] /
[2019-02-27] MEDS: PHENobarbital 32.4 MG TAB PO SCH (22:17)
[2019-02-28] MEDS: MORPHINE SULFATE ER 15 MG TABLET PO SCH ×4 (00:14→23:47)
[2019-02-28] MEDS: methylPREDNISolone SOD SUCCI 125 MG/2 ML VIAL IV SCH ×5 (00:14→23:47)
[2019-02-28] MEDS: MORPHINE SULFATE 4 MG/ML SYRINGE IV PRN ×2 (05:33→13:13)
[2019-02-28] MEDS: IPRATROPIUM-ALBUTEROL 3 ML NEB INHALATION SCH ×5 (07:53→20:24)
[2019-02-28] MEDS: BUDESONIDE 1 MG/2 ML NEBU INHALATION SCH ×2 (07:55→20:25)
[2019-02-28] MEDS: FORMOTEROL FUMARATE 20 MCG/2 ML NEBU INHALATION SCH ×2 (07:55→20:24)
[2019-02-28 08:07] LABS: ALT 69 U/L (9-52); AST 84 U/L (14-36); Albumin 4.3 g/dL (3.5-5.0); Alkaline Phosphatase 105 U/L (38-126); Anion Gap 13 mmol/L; Blood Urea Nitrogen 18 mg/dL (7-17); Calcium 9.3 mg/dL (8.4-10.2); Carbon Dioxide 23 mmol/L (22-30); Chloride 96 mmol/L (98-107); Glucose 127 mg/dL (74-99); Sodium 132 mmol/L (137-145); Total Bilirubin 0.5 mg/dL (0.2-1.3); Total Protein 8.9 g/dL (6.3-8.2)
[2019-02-28 08:09] LABS: Basophils % (A) 0 %; Eosinophils % (A) 0 %; HCT 38.5 % (34.0-46.0); HGB 12.4 gm/dL (11.4-16.0); Lymphocytes # (A) 0.5 k/uL (1.0-4.8); Lymphocytes % (A) 5 %; MCH 29.7 pg (25.0-35.0); MCHC 32.2 g/dL (31.0-37.0); MCV 92.2 fL (80.0-100.0); Mean Platelet Volume 7.2; Monocytes # (A) 0.5 k/uL (0-1.0); Monocytes % (A) 4 %; Neutrophils # (A) 9.4 k/uL (1.3-7.7); Neutrophils % (A) 89 %; Platelet Count 341 k/uL (150-450); RBC 4.17 m/uL (3.80-5.40); RDW 14.3 % (11.5-15.5); WBC 10.5 k/uL (3.8-10.6)
[2019-02-28 08:12] LABS: Potassium 5.5 mmol/L (3.5-5.1)
[2019-02-28] MEDS: SENNOSIDES-DOCUSATE SODIUM 1 EACH TAB PO SCH ×2 (08:26→21:23)
[2019-02-28] MEDS: PHENYTOIN SODIUM EXTENDED 100 MG CAP PO SCH ×2 (08:26→21:23)
[2019-02-28] MEDS: POLYETHYLENE GLYCOL 3350 17 GM POWD.PACK PO SCH (08:26)
[2019-02-28] MEDS: METOPROLOL TARTRATE 12.5 MG TAB PO SCH ×2 (08:26→21:23)
[2019-02-28] MEDS: PANTOPRAZOLE 40 MG TABLET PO SCH ×2 (08:26→21:23)
[2019-02-28] MEDS: FOLIC ACID 1 MG TAB PO SCH (13:13)
[2019-02-28] MEDS: MAGNESIUM HYDROXIDE 2,400 MG/10 ML CUP PO PRN (17:50)
--- NOTE | 2019-02-28 20:38 | PN ---
PROGRESS NOTE DATE OF SERVICE: 02/28/2019 CHIEF COMPLAINT: Metastatic carcinoma of the lung, on chemotherapy. HISTORY OF PRESENT ILLNESS: This lady is doing fairly well, but she is having some nausea. Chemotherapy continues. PHYSICAL EXAMINATION: Breath sounds are diminished on the right side with extensive rales and rhonchi. Cardiac exam is normal. IMPRESSION: 1. Metastatic carcinoma of the lung. 2. Chronic obstructive pulmonary disease. 3. Seizure disorder. PLAN: Continue following with Oncology. MMODL / IJN: [id number] /
[2019-02-28] MEDS: PHENobarbital 32.4 MG TAB PO SCH (21:23)
--- NOTE | 2019-02-28 22:30 | P.PN ---
Subjective Progress Note Date: 02/28/19 Principal diagnosis: Acute Hypoxic Respiratory Failure Status Post first treatment with Carboplatin and almta. She is passing gas, denies nausea and tolerating po intake although has still not had a BM other than a small amount two days ago. Increased bowel regimen, encouraged get out of bed. Objective - Vital Signs Vital signs: Vital Signs Temp 97.9 F 02/28/19 11:25 Pulse 96 02/28/19 12:03 Resp 18 02/28/19 11:25 BP 110/74 02/28/19 11:25 Pulse Ox 94 L 02/28/19 11:25 Intake & Output 02/27/19 02/28/19 02/28/19 18:59 06:59 18:59 Intake Total 1420 Balance 1420 Intake: Oral 1420 Other: Voiding Method Toilet Toilet # Voids 2 2 - Exam gen: Alert and Oriented, NAD Head: NCNT Neck: Supple Lungs: Exp wheezing and diminished through all Mild increased effort Heart: Tachy, reg Abdomen: Pain Palpation RUQ, soft, ND Ext: No edema Neuro: No sensory or motor deficits. - Labs CBC & Chem 7: 02/28/19 07:03 02/28/19 07:03 Labs: Abnormal Lab Results - Last 24 Hours (Table) 02/27/19 02/27/19 02/28/19 Range/Units 15:54 15:54 07:03 WBC 12.7 H (3.8-10.6) k/uL Neutrophils # 11.9 H 9.4 H (1.3-7.7) k/uL Lymphocytes # 0.4 L 0.5 L (1.0-4.8) k/uL Sodium 129 L (137-145) mmol/L Potassium 5.3 H (3.5-5.1) mmol/L Chloride 95 L (98-107) mmol/L BUN 19 H (7-17) mg/dL Creatinine 0.49 L (0.52-1.04) mg/dL Glucose 143 H (74-99) mg/dL AST 98 H (14-36) U/L ALT 71 H (9-52) U/L Lactate Dehydrogenase 1067 H (313-618) U/L Total Protein (6.3-8.2) g/dL 02/28/19 Range/Units 07:03 WBC (3.8-10.6) k/uL Neutrophils # (1.3-7.7) k/uL Lymphocytes # (1.0-4.8) k/uL Sodium 132 L (137-145) mmol/L Potassium 5.5 H (3.5-5.1) mmol/L Chloride 96 L (98-107) mmol/L BUN 18 H (7-17) mg/dL Creatinine 0.51 L (0.52-1.04) mg/dL Glucose 127 H (74-99) mg/dL AST 84 H (14-36) U/L ALT 69 H (9-52) U/L Lactate Dehydrogenase (313-618) U/L Total Protein 8.9 H (6.3-8.2) g/dL Assessment and Plan Plan: Assessment and Recommendations: Recurrent and Progressive Adenocarcinoma of the Lung: - Original Diagnosis in november 2017 - Status POst RML Resection, adjuvant chemo and radiation - 01/14/19 - Evidence of recurrence and metastatic cancer - Treatment Recs: Carbo/Almta/Keytruda - Patient has been contacted to schedule and has not made up mind yet if she wanted to pursue treatment. - Agreed to first treatment inpatient, status Post carboplatin and ALmta on 02/28/19 - Picc line prior to treatment Acute Hypoxic Respiratory Failure: Improving - Maintain Oxygenation above 92% - Pulmonary Following - Discussion of Initiation of treatment versus decisions to forgo treatment Constipation: - Incresaed Bowel regimen and patient to move bowels prior to starting chemo - She is very apprehensive to begin chemotherapy secondary to prior attempt at chemo she was very nauseated and sick - She did have one BM on 02/27/19 per patient PLan: - Plan for DISPO per Primary Team hopefully soon - Follow-up in office within week for CBC check - Increase bowel regimen Physician Attestation: I have performed the full physical examination and reviewed the full history of this patient, as well as pertinent findings. I have created the compled impression and recommendations. I agree with the above dictation by CHARMAINE Roman. This dictation has been written as a scribe.
[2019-03-01] MEDS: methylPREDNISolone SOD SUCCI 125 MG/2 ML VIAL IV SCH ×3 (05:34→16:55)
[2019-03-01] MEDS: MORPHINE SULFATE 4 MG/ML SYRINGE IV PRN ×2 (07:09→13:22)
[2019-03-01 07:28] LABS: Basophils % (A) 0 %; Eosinophils % (A) 0 %; HCT 39.3 % (34.0-46.0); HGB 12.1 gm/dL (11.4-16.0); Lymphocytes # (A) 0.9 k/uL (1.0-4.8); Lymphocytes % (A) 8 %; MCH 28.6 pg (25.0-35.0); MCHC 30.7 g/dL (31.0-37.0); Mean Platelet Volume 6.8; Monocytes # (A) 0.4 k/uL (0-1.0); Monocytes % (A) 3 %; Neutrophils # (A) 9.9 k/uL (1.3-7.7); Neutrophils % (A) 88 %; Platelet Count 356 k/uL (150-450); RBC 4.22 m/uL (3.80-5.40); RDW 14.3 % (11.5-15.5); WBC 11.3 k/uL (3.8-10.6)
[2019-03-01 07:59] LABS: ALT 57 U/L (9-52); AST 55 U/L (14-36); Albumin 3.9 g/dL (3.5-5.0); Alkaline Phosphatase 105 U/L (38-126); Anion Gap 6 mmol/L; Blood Urea Nitrogen 19 mg/dL (7-17); Calcium 9.4 mg/dL (8.4-10.2); Carbon Dioxide 34 mmol/L (22-30); Chloride 93 mmol/L (98-107); Glucose 110 mg/dL (74-99); Potassium 4.7 mmol/L (3.5-5.1); Sodium 133 mmol/L (137-145); Total Bilirubin 0.3 mg/dL (0.2-1.3)
[2019-03-01] MEDS: FORMOTEROL FUMARATE 20 MCG/2 ML NEBU INHALATION SCH ×2 (08:26→21:07)
[2019-03-01] MEDS: BUDESONIDE 1 MG/2 ML NEBU INHALATION SCH ×2 (08:26→21:07)
[2019-03-01] MEDS: IPRATROPIUM-ALBUTEROL 3 ML NEB INHALATION SCH ×4 (08:27→21:07)
[2019-03-01] MEDS: MORPHINE SULFATE ER 15 MG TABLET PO SCH ×2 (09:06→16:51)
[2019-03-01] MEDS: FOLIC ACID 1 MG TAB PO SCH (09:07)
[2019-03-01] MEDS: METOPROLOL TARTRATE 12.5 MG TAB PO SCH ×2 (09:07→20:42)
[2019-03-01] MEDS: PANTOPRAZOLE 40 MG TABLET PO SCH ×2 (09:07→20:42)
[2019-03-01] MEDS: PHENYTOIN SODIUM EXTENDED 100 MG CAP PO SCH ×2 (09:07→20:43)
[2019-03-01] MEDS: SENNOSIDES-DOCUSATE SODIUM 1 EACH TAB PO SCH ×2 (09:07→20:43)
[2019-03-01] MEDS: LACTULOSE 20 GM/30 ML CUP PO SCH ×2 (09:08→20:43)
[2019-03-01] MEDS: HYDROcodone/APAP 5-325MG 1 EACH TAB PO PRN ×2 (10:00→20:43)
[2019-03-01] MEDS: POLYETHYLENE GLYCOL 3350 17 GM POWD.PACK PO SCH (13:27)
--- NOTE | 2019-03-01 19:45 | PN ---
PROGRESS NOTE CHIEF COMPLAINT: CA of the right lung and chest wall. HISTORY OF PRESENT ILLNESS: This lady is still getting chemo. She is more short of breath today than she has been. Morphine seems to be helping, but the dose may need to be raised. PHYSICAL EXAM: Poor breath sounds on the right with scattered rales and rhonchi. Cardiac exam is normal. IMPRESSION: 1. Residual carcinoma of the right lung involving chest wall. 2. Intractable pain. 3. Chronic obstructive pulmonary disease. 4. Seizure disorder. PLAN: Continue with current program and possibly increase morphine at her request. MMODL / IJN: [id number] /
[2019-03-01] MEDS: PHENobarbital 32.4 MG TAB PO SCH (20:42)
[2019-03-02] MEDS: MORPHINE SULFATE ER 15 MG TABLET PO SCH ×3 (00:11→17:19)
[2019-03-02] MEDS: methylPREDNISolone SOD SUCCI 125 MG/2 ML VIAL IV SCH ×4 (00:11→17:20)
[2019-03-02] MEDS: MORPHINE SULFATE 4 MG/ML SYRINGE IV PRN ×2 (02:31→07:28)
[2019-03-02 07:33] LABS: Basophils % (A) 0 %; Eosinophils % (A) 0 %; HCT 38.2 % (34.0-46.0); Lymphocytes # (A) 0.4 k/uL (1.0-4.8); Lymphocytes % (A) 4 %; MCH 29.3 pg (25.0-35.0); MCHC 31.5 g/dL (31.0-37.0); MCV 93.2 fL (80.0-100.0); Mean Platelet Volume 6.7; Monocytes # (A) 0.2 k/uL (0-1.0); Monocytes % (A) 2 %; Neutrophils # (A) 9.1 k/uL (1.3-7.7); Neutrophils % (A) 93 %; Platelet Count 292 k/uL (150-450); RDW 14.2 % (11.5-15.5); WBC 9.8 k/uL (3.8-10.6)
[2019-03-02] MEDS: METOPROLOL TARTRATE 12.5 MG TAB PO SCH (07:38)
[2019-03-02] MEDS: PHENYTOIN SODIUM EXTENDED 100 MG CAP PO SCH (07:39)
[2019-03-02] MEDS: PANTOPRAZOLE 40 MG TABLET PO SCH (07:39)
[2019-03-02 07:40] LABS: ALT 50 U/L (9-52); AST 47 U/L (14-36); Albumin 3.9 g/dL (3.5-5.0); Alkaline Phosphatase 100 U/L (38-126); Anion Gap 8 mmol/L; Blood Urea Nitrogen 21 mg/dL (7-17); Carbon Dioxide 32 mmol/L (22-30); Chloride 93 mmol/L (98-107); Glucose 130 mg/dL (74-99); Potassium 4.7 mmol/L (3.5-5.1); Sodium 133 mmol/L (137-145); Total Bilirubin 0.4 mg/dL (0.2-1.3)
[2019-03-02] MEDS: FOLIC ACID 1 MG TAB PO SCH (07:40)
[2019-03-02] MEDS: LACTULOSE 20 GM/30 ML CUP PO SCH (07:40)
[2019-03-02] MEDS: SENNOSIDES-DOCUSATE SODIUM 1 EACH TAB PO SCH (07:40)
[2019-03-02] MEDS: POLYETHYLENE GLYCOL 3350 17 GM POWD.PACK PO SCH (07:40)
[2019-03-02] MEDS: IPRATROPIUM-ALBUTEROL 3 ML NEB INHALATION SCH ×4 (07:42→20:47)
[2019-03-02] MEDS: BUDESONIDE 1 MG/2 ML NEBU INHALATION SCH ×2 (07:43→20:47)
[2019-03-02] MEDS: FORMOTEROL FUMARATE 20 MCG/2 ML NEBU INHALATION SCH ×3 (07:45→21:06)
[2019-03-02] MEDS: HYDROcodone/APAP 5-325MG 1 EACH TAB PO PRN (12:51)
[2019-03-02] MEDS: MORPHINE SULFATE ER 30 MG TABLET PO SCH (20:15)
[2019-03-02] MEDS: ONDANSETRON 4 MG TAB PO PRN (20:15)
--- NOTE | 2019-03-02 20:17 | PN ---
PROGRESS NOTE DATE OF SERVICE: 03/02/2019. CHIEF COMPLAINT: CA of the lung. HISTORY OF PRESENT ILLNESS: This lady is still having a lot of shortness of breath and pain. PHYSICAL EXAM: Breath sounds are very diminished on the right. Cardiac exam is normal. IMPRESSION: 1. Carcinoma of the lung. 2. Chronic obstructive pulmonary disease. 3. Seizure disorder. PLAN: Increase MS Contin from 15-30 mg around the clock q.8h. MMODL / IJN: [id number] /
[2019-03-02] MEDS ORDERED: ACETAMINOPHEN IV (For NPO) 1,000 MG in EMPTY BAG 1 BAG IVPB STA (21:44)
--- NOTE | 2019-03-02 22:16 | XR ---
EXAM: XR Chest, 1 View CLINICAL HISTORY: ITS.REASON XR Reason: sob TECHNIQUE: Frontal view of the chest. COMPARISON: No relevant prior studies available. FINDINGS: Lungs: Mild interstitial prominence. Pleural space: Large right pleural effusion with adjacent airspace disease or atelectasis. No pneumothorax. Heart: Cardiomegaly. Mediastinum: Unremarkable. Bones/joints: Unremarkable. Tubes, lines and devices: Left-sided PICC line is present. Tip of the PICC line at the level of the mid SVC. IMPRESSION: Left-sided PICC line with tip at the level of the mid SVC. Large right pleural effusion with adjacent airspace disease/atelectasis. Cardiomegaly and mild interstitial prominence.
[2019-03-02] MEDS: LORazepam 2 MG/ML INJ IV PRN (22:20)
[2019-03-03] MEDS ORDERED: SODIUM CHLORIDE 0.9% 500 ML 500 ML IV ONE (00:20)
[2019-03-03] MEDS: PHENYTOIN SODIUM EXTENDED 100 MG CAP PO SCH ×3 (00:42→21:25)
[2019-03-03] MEDS: methylPREDNISolone SOD SUCCI 125 MG/2 ML VIAL IV SCH ×5 (00:42→23:36)
[2019-03-03] MEDS: PHENobarbital 32.4 MG TAB PO SCH ×3 (00:42→21:25)
[2019-03-03] MEDS: LACTULOSE 20 GM/30 ML CUP PO SCH ×3 (00:56→21:27)
[2019-03-03] MEDS: METOPROLOL TARTRATE 12.5 MG TAB PO SCH ×3 (00:56→21:25)
[2019-03-03] MEDS: PANTOPRAZOLE 40 MG TABLET PO SCH ×3 (00:57→21:25)
[2019-03-03] MEDS: SENNOSIDES-DOCUSATE SODIUM 1 EACH TAB PO SCH ×3 (00:57→21:25)
[2019-03-03] MEDS: LEVOFLOXACIN 750MG-D5W PMX 750 MG in DEXTROSE/WATER 1 150ML.BAG IVPB SCH ×2 (01:38→21:26)
[2019-03-03] MEDS: MORPHINE SULFATE ER 30 MG TABLET PO SCH ×4 (04:09→23:33)
[2019-03-03] MEDS: HYDROcodone/APAP 5-325MG 1 EACH TAB PO PRN ×3 (06:04→19:11)
[2019-03-03] MEDS: MORPHINE SULFATE 4 MG/ML SYRINGE IV PRN (07:37)
[2019-03-03] MEDS: FORMOTEROL FUMARATE 20 MCG/2 ML NEBU INHALATION SCH ×2 (08:22→19:46)
[2019-03-03] MEDS: BUDESONIDE 1 MG/2 ML NEBU INHALATION SCH ×2 (08:22→19:46)
[2019-03-03] MEDS: IPRATROPIUM-ALBUTEROL 3 ML NEB INHALATION SCH ×4 (08:22→19:46)
[2019-03-03] MEDS: POLYETHYLENE GLYCOL 3350 17 GM POWD.PACK PO SCH (08:38)
[2019-03-03] MEDS: FOLIC ACID 1 MG TAB PO SCH (12:15)
--- NOTE | 2019-03-03 12:40 | PN ---
PROGRESS NOTE CHIEF COMPLAINT: CA of the lung. HISTORY OF PRESENT ILLNESS: Last night this lady spiked a temp to over 103. She is very dyspneic yesterday, but her breathing actually seems to be a little bit better today. PHYSICAL EXAM: Breath sounds are diminished on the right with scattered rales and rhonchi and vesicular sounds. Cardiac exam is normal. IMPRESSION: 1. Metastatic carcinoma of the right lung involving chest wall. 2. Chronic obstructive pulmonary disease. 3. Hyperpyrexia, probably secondary to obstructive pneumonia. PLAN: Appropriate cultures were obtained and she was started on Levaquin. Her morphine will be increased as well. MMODL / IJN: [id number] /
--- NOTE | 2019-03-03 14:55 | P.PN ---
Subjective Progress Note Date: 03/03/19 Principal diagnosis: Metastatic non-small cell lung cancer. Today in follow-up patient seems to be doing fairly well considering that she had an A-team called on her last evening. Patient was on a non-rebreather, she is down to nasal cannula. Denied current headache, confusion, difficulty in breathing, chest pain, nausea, she does not remember her last bowel movement. Objective - Vital Signs Vital signs: Vital Signs Temp 98.7 F 03/03/19 12:02 Pulse 108 H 03/03/19 12:18 Resp 18 03/03/19 12:02 BP 100/64 03/03/19 12:02 Pulse Ox 96 03/03/19 12:02 Intake & Output 03/02/19 03/03/19 03/03/19 18:59 06:59 18:59 Intake Total 360 590 Output Total 1200 Balance 360 -610 Weight 88.451 kg Intake: Oral 360 590 Output: Urine 1200 Uretheral (Greco) 600 Other: Voiding Method Toilet Toilet Indwelling Catheter # Voids 3 1 # Bowel Movements 1 - Constitutional General appearance: Present: average body habitus, cooperative, no acute distress - EENT Eyes: Present: anicteric sclerae, EOMI ENT: Present: hearing grossly normal - Respiratory Respiratory: right: other (Absent breath sounds), left: CTA - Cardiovascular Rhythm: regular Heart sounds: normal: S1, S2 Abnormal Heart Sounds: Absent: systolic murmur, diastolic murmur, rub, S3 Gallop, S4 Gallop, click, other - Peripheral edema leg Peripheral Edema: bilateral: None - Gastrointestinal General gastrointestinal: Present: normal bowel sounds, soft. Absent: absent bowel sounds, decreased bowel sounds, distended, hepatomegaly, hyperactive bowel sounds, organomegaly, rigid, scaphoid, splenomegaly, tenderness, umbilical hernia, ventral hernia - Neurologic Neurologic: Present: CNII-XII intact - Musculoskeletal Musculoskeletal: Present: strength equal bilaterally - Psychiatric Psychiatric: Present: A&O x's 3. Absent: appropriate affect, intact judgment & insight - Labs CBC & Chem 7: 03/02/19 07:10 03/02/19 07:10 Assessment and Plan (1) Acute respiratory failure with hypoxia Narrative/Plan: Patient is improved, she is not on vasopressors, she is down to nasal cannula from a nonrebreather. Patient family had a lot of questions about her episode last evening, I am unable to say exactly what caused it but, surprisingly patient looks very well today considering. Her vital signs are stable at this time. Current Visit: Yes Status: Acute Priority: High Code(s): J96.01 - ACUTE RESPIRATORY FAILURE WITH HYPOXIA SNOMED Code(s): 05708417 (2) Recurrent non-small cell lung cancer (NSCLC) Narrative/Plan: Patient and family are very aware of her recurrent and progressive disease, understand involvement of the right lung and palliative intent of chemotherapy. Patient received 1st carboplatin and Alimta last week, next cycle due in 3 weeks . Explained that follow-up is weekly to monitor patient's blood counts and side effects of treatment.. Pt has no signs or symptoms of hematological or physiological toxicities from treatment as of today-debbie is about day 10. It was explained to patient that it is her decision to continue or discontinue treatment. It is unclear how much patient and her significant other understand due to the unusual nature of some of their questions but, continued to reinforce intent of treatment being palliative, treatment of the malignancy should improve patient's symptoms. If patient is deriving no benefit from treatment or the sequela of treatment is worse than the disease then recommendation would be for comfort measures only. Will follow daily to continue to address concerns Current Visit: Yes Status: Acute Priority: High Code(s): C34.90 - MALIGNANT NEOPLASM OF UNSP PART OF UNSP BRONCHUS OR LUNG SNOMED Code(s): 243396477
[2019-03-03] MEDS: LORazepam 0.5 MG TAB PO PRN (21:25)
[2019-03-04] MEDS: MORPHINE SULFATE 4 MG/ML SYRINGE IV PRN ×3 (01:56→15:14)
[2019-03-04] MEDS: methylPREDNISolone SOD SUCCI 125 MG/2 ML VIAL IV SCH ×3 (05:54→17:51)
[2019-03-04] MEDS: MORPHINE SULFATE ER 30 MG TABLET PO SCH (07:28)
[2019-03-04] MEDS: FOLIC ACID 1 MG TAB PO SCH (07:30)
[2019-03-04] MEDS: METOPROLOL TARTRATE 12.5 MG TAB PO SCH (07:30)
[2019-03-04] MEDS: PANTOPRAZOLE 40 MG TABLET PO SCH (07:30)
[2019-03-04] MEDS: ONDANSETRON 4 MG TAB PO PRN (07:30)
[2019-03-04] MEDS: PHENobarbital 32.4 MG TAB PO SCH (07:30)
[2019-03-04] MEDS: PHENYTOIN SODIUM EXTENDED 100 MG CAP PO SCH (07:31)
[2019-03-04] MEDS: LACTULOSE 20 GM/30 ML CUP PO SCH (07:34)
[2019-03-04] MEDS: SENNOSIDES-DOCUSATE SODIUM 1 EACH TAB PO SCH (07:35)
[2019-03-04] MEDS: POLYETHYLENE GLYCOL 3350 17 GM POWD.PACK PO SCH (07:35)
[2019-03-04] MEDS: IPRATROPIUM-ALBUTEROL 3 ML NEB INHALATION SCH ×4 (08:17→20:07)
[2019-03-04] MEDS: FORMOTEROL FUMARATE 20 MCG/2 ML NEBU INHALATION SCH ×2 (08:17→20:06)
[2019-03-04] MEDS: BUDESONIDE 1 MG/2 ML NEBU INHALATION SCH ×2 (08:17→20:05)
[2019-03-04] MEDS ORDERED: BENZOCAINE/MENTHOL LOZENG 1 EACH LOZENGE MUCOUS MEM PRN (08:55)
[2019-03-04] MEDS: MORPHINE SULFATE IR 15 MG TABLET PO SCH ×2 (12:10→17:51)
[2019-03-04 12:11] VITALS: BP 112/77
--- NOTE | 2019-03-04 12:41 | P.PN ---
Subjective Progress Note Date: 03/04/19 Principal diagnosis: Metastatic non-small cell lung cancer. In follow-up today patient has numerous family members at the bedside again. Patient has had bright red hemoptysis at least 2 times this morning. Her oxygen demands are stable, she is on 6 L nasal cannula. Patient is able to move about in the bed independently. Patient is denying any chemo related side effects, no fevers, nausea, vomiting, dysuria, hematuria, diarrhea or constipation. Her complaints of pain are persistent, in her right chest, postoperative neuralgia Objective - Vital Signs Vital signs: Vital Signs Temp 99.5 F 03/04/19 12:07 Pulse 111 H 03/04/19 12:07 Resp 18 03/04/19 12:07 BP 112/77 03/04/19 12:07 Pulse Ox 94 L 03/04/19 12:07 Intake & Output 03/03/19 03/04/19 03/04/19 18:59 06:59 18:59 Intake Total 160 Output Total 21990 Balance -2039 -2199 Weight 88.451 kg Intake: IV 160 0.9 160 Output: Urine 2199 2199 Other: Voiding Method Indwelling Catheter Bedside Commode # Voids 2 # Bowel Movements 2 - Constitutional General appearance: Present: cooperative, no acute distress, obese - EENT Eyes: Present: EOMI ENT: Present: hearing grossly normal - Respiratory Respiratory: right: other (Absent), left: diminished - Cardiovascular Heart sounds: normal: S1, S2 - Peripheral edema leg Peripheral Edema: bilateral: None - Gastrointestinal General gastrointestinal: Present: normal bowel sounds, soft - Neurologic Neurologic: Present: CNII-XII intact - Musculoskeletal Musculoskeletal: Present: strength equal bilaterally - Psychiatric Psychiatric: Present: A&O x's 3 - Labs CBC & Chem 7: 03/02/19 07:10 03/02/19 07:10 Labs: Microbiology - Last 24 Hours (Table) 03/02/19 22:16 Blood Culture - Preliminary Blood No Growth after 24 hours Assessment and Plan (1) Acute respiratory failure with hypoxia Narrative/Plan: Patient is improved this episode. She is currently on 6 L nasal cannula. Current Visit: Yes Status: Acute Priority: High Code(s): J96.01 - ACUTE RESPIRATORY FAILURE WITH HYPOXIA SNOMED Code(s): 75910524 (2) Recurrent non-small cell lung cancer (NSCLC) Narrative/Plan: Greater than 30 minutes were spent today counseling Patient and family regarding recurrent and progressive disease and palliative intent of chemotherapy. We discussed the hemoptysis differentials-possibility that the tumor could be eroding into blood vessels or related to treatment of the tumor and subsequent friability of the tumor, with harsh cough hemoptysis could be expected. Patient states that she has also coughed up "lump of" tissue. Patient denies aggressive coughing at this time, no mediastinal burning or chest pain. Did offer evaluation with radiation oncology to see if there is a possibility that they could offer 1 or 2 doses to palliate the hemoptysis. Patient and family are having tremendous difficulties coming to any decisions. Did discuss with them that likely she was going to be discharged within the next day or 2. The family has concerns about having home care coming into the home. We discussed palliative care, hospice care, ECF care. We reviewed that only with palliative care in the home with the patient be able to continue with chemotherapy. The family seem to understand our discussion. Case discussed with case management, who will visit the family and reinforce our discussion as well as options for care. Patient received 1st palliative carboplatin and Alimta last week, next cycle due in 3 weeks. Explained that follow-up is weekly to monitor patient's blood counts and side effects of treatment.. Pt has no signs or symptoms of hematological or physiological toxicities from treatment as of today-debbie is about day 10. Eeinforced intent of treatment being palliative, treatment of the malignancy should improve patient's symptoms. If patient is deriving no benefit from treatment or the sequela of treatment is worse than the disease then recommendation would be for comfort measures only. Will follow daily to continue to address concerns Current Visit: Yes Status: Acute Priority: High Code(s): C34.90 - MALIGNANT NEOPLASM OF UNSP PART OF UNSP BRONCHUS OR LUNG SNOMED Code(s): 784341469 Time with Patient: Greater than 30 (Greater than 40 minutes spent with patient and family, greater than 50% of time spent counseling and coordinating care)
[2019-03-04] MEDS: LORazepam 2 MG/ML INJ IV PRN (17:05)
--- NOTE | 2019-03-04 17:42 | PN ---
PROGRESS NOTE CHIEF COMPLAINT: Carcinoma of the lung. HISTORY OF PRESENT ILLNESS: This lady is not doing well. She is continuing to have more and more pain and more shortness of breath. PHYSICAL EXAMINATION: Breath sounds are diminished on the right. Cardiac exam is normal. Abdomen is soft. IMPRESSION: 1. Advancing carcinoma of the lung with right lateral chest wall pain. 2. Chronic obstructive pulmonary disease. PLAN: 1. Possibly increase analgesia again. 2. Lozenges for sore throat. MMODL / IJN: [id number] /
[2019-03-04] MEDS ORDERED: MORPHINE SULFATE (100 MG/2 ML) 100 MG in SODIUM CHLORIDE 0.9% 100 ML IV SCH (18:00)
[2019-03-04 19:03] VITALS: PULSE 110
[2019-03-04] MEDS ORDERED: LEVOFLOXACIN 750 MG TAB PO SCH (21:00)
[2019-03-04 21:39] VITALS: RESP 37; TEMP 99.1
--- NOTE | 2019-03-06 06:00 | CDI ---
Documentation Clarification Form Date: 03/06/19 From: Haile Khan Phone: call to [phone] Admit Date: 02/25/2019 1:09:00 PM Patient Name: Terra Soliman Visit Number: [id number] Discharge Date: 03/04/2019 11:33:00 PM ATTENTION: The Clinical Documentation Specialists (CDI) and [facility] Coding Staff appreciate your assistance in clarifying documentation. Please respond to the clarification below the line at the bottom and electronically sign. The CDI & [facility] Coding staff will review the response and follow-up if needed. Please note: Queries are made part of the Legal Health Record. If you have any questions, please contact the author of this message via ITS. Dr. Abdirashid Hagen Pneumonia was documented in your notes on 03/03 progress note as Hyperpyrexia, probably secondary to obstructive pneumonia.- Appropriate cultures were obtained and she was started on Levaquin History/Risk Factors: Lung cancer Treatment: Antibiotics and conservative treatment Antibiotics: Levaquin 750mg on 03/04 In order to capture the severity of condition, please clarify if the condition signifies and you are treating for: Healthcare Acquired Pneumonia/Pneumonia, unspecified Other, please specify Unable to determine. MTDD
--- NOTE | 2019-03-06 09:59 | DS ---
DISCHARGE SUMMARY DATE OF SERVICE: 03/04/2019 CHIEF COMPLAINT: Shortness of breath, CA of the lung and intractable pain. HISTORY OF PRESENT ILLNESS AND PHYSICAL EXAM: Details of this lady's history and physical can be found in the initial workup. COURSE IN HOSPITAL: After admission, she was placed on bedrest and started on intravenous fluids and analgesics. She was seen by Oncology. An attempt at chemotherapy was discussed and initially she was not interested. She changed her mind. She was started on a program. She continued to have increasing shortness of breath and increasing right chest wall pain and analgesia was increased. She was placed on MS Contin and the dose was being increased. She was having more and more difficulty breathing. Suddenly on the evening of the , she became acutely dyspneic and lost consciousness. She was not to be resuscitated and she . FINAL DIAGNOSES: 1. Carcinoma of the lung. 2. Chronic obstructive pulmonary disease. 3. Seizure disorder. OPERATIONS: None. CONSULTATIONS: Oncology. She is not improved. She . MMODL / IJN: [id number] /
--- NOTE | 2019-03-06 13:08 | MISC ---
MISCELLANOUS REPORT Healthcare acquired pneumonia. MMODL / IJN: [id number] /
== END 2019-03-04 23:33 | disposition expired | DRG 180 ==
LOC: EC 16:35 → 3NMEDONC 19:18 → OBSVTOIN 02-25 13:09 → 3NMEDONC 02-25 17:59
PROVIDERS: ADMIT Family Medicine; ATTEND Family Medicine
PROC: 3E04305 Introduction of Other Antineoplastic into Central Vein, Percutaneous Approach (ICD-10-PCS; principal; 2019-02-26 14:30)
PROC: B5181ZA Fluoroscopy of Superior Vena Cava using Low Osmolar Contrast, Guidance (ICD-10-PCS; 2019-02-27)
PROC: 02HV33Z Insertion of Infusion Device into Superior Vena Cava, Percutaneous Approach (ICD-10-PCS; 2019-02-27)
DX: C34.91 Malignant neoplasm of unspecified part of right bronchus or lung (principal); J96.01 Acute respiratory failure with hypoxia; J18.9 Pneumonia, unspecified organism; C79.89 Secondary malignant neoplasm of other specified sites; J90 Pleural effusion, not elsewhere classified; J44.1 Chronic obstructive pulmonary disease with (acute) exacerbation; C78.7 Secondary malignant neoplasm of liver and intrahepatic bile duct; R04.2 Hemoptysis; G89.3 Neoplasm related pain (acute) (chronic); G89.29 Other chronic pain; H40.9 Unspecified glaucoma; K21.9 Gastro-esophageal reflux disease without esophagitis; R10.11 Right upper quadrant pain; Z68.39 Body mass index [BMI] 39.0-39.9, adult; G40.909 Epilepsy, unspecified, not intractable, without status epilepticus; K59.00 Constipation, unspecified; Z51.5 Encounter for palliative care; R59.0 Localized enlarged lymph nodes; M79.2 Neuralgia and neuritis, unspecified; Z88.0 Allergy status to penicillin; Z88.5 Allergy status to narcotic agent; Z88.8 Allergy status to other drugs, medicaments and biological substances; Z87.440 Personal history of urinary (tract) infections; Z90.89 Acquired absence of other organs; Z90.49 Acquired absence of other specified parts of digestive tract; Z87.891 Personal history of nicotine dependence; Z80.1 Family history of malignant neoplasm of trachea, bronchus and lung; Z82.49 Family history of ischemic heart disease and other diseases of the circulatory system; Z83.3 Family history of diabetes mellitus; Z98.49 Cataract extraction status, unspecified eye; Z90.2 Acquired absence of lung [part of]
CPT/HCPCS: 36415; 36573; 71045; 71275; 74022; 80053; 80184; 80185; 83615; 83735; 83880; 84100; 84484; 85025; 85610; 85730; 87040; 93005; 94640; 94760; 96374; 99285